=== PATIENT | female | born 1995 | race Caucasian/White ===

== ENCOUNTER 2022-01-26 23:52 | Inpatient (IN) ==
[2022-01-27] MEDS ORDERED: ONDANSETRON INJ 2 MG/ML 2 ML VIAL ONE (01:47)
[2022-01-27 02:07] LABS: Pregnancy Test, Urine Negative (Negative)
[2022-01-27 02:08] LABS: Appearance Urine Clear (Clear); Bacteria Urine Automated Negative (Negative); Bilirubin Urine Negative (Negative); Blood Urine Negative (Negative); Color Urine Yellow; Epithelial Cell Urine Auto >30 /lpf (0-5); Glucose Urine UA 3+ (Negative); Ketones Urine 1+ (Negative); Leukocyte Esterase Urine Trace (Negative); Nitrite Urine Negative (Negative); Protein Urine Negative (Negative); RBC Urine Automated 0-4 /hpf (0-4); Specific Gravity Urine 1.018 (1.000-1.030); Urobilinogen Urine Negative (Negative)
[2022-01-27 02:13] LABS: Acetaminophen < 3 ug/ml (10-30); Albumin Globulin Ratio 1.3 (0.9-2); Albumin Level 4.3 gm/dl (3.4-5.0); BUN Creatinine Ratio 12.4 (10-20); Bilirubin,Total 0.3 mg/dl (0.2-1.0); Calcium 9.4 mg/dl (8.5-10.1); Est GFR (African American) 104.4 ml/min; Est GFR (Non-African American) 90.1 ml/min; Globulin 3.2 gm/dl (2.5-4.0); Potassium 3.8 mmol/L (3.5-5.1); Salicylate < 3.0 mg/dl (3.0-30); Total Protein 7.5 gm/dl (6.0-8.3)
[2022-01-27 02:17] LABS: Hematocrit (blood only) 41.8 % (34.1-44.9); Hemoglobin 13.6 g/dl (12.0-16.0); Mean Corpuscular Hemoglobin 26.8 pg (25.0-34.0); Mean Corpuscular Hgb Conc 32.5 g/dL (32.0-36.0); Mean Corpuscular Volume 82.4 fL (80.0-100.0); Mean Platelet Volume 10.3 fL (9.4-12.3); Platelet Count 461 K/uL (130-400); RDW Coefficient of Variation 15.1 % (11.5-14.5); RDW Standard Deviation 44.3 fL (36.4-46.3); Red Blood Count 5.07 M/uL (3.93-5.22); White Blood Count 35.77 K/ul (4.8-10.8)
[2022-01-27 02:23] LABS: Basophils # (auto) 0.08 K/uL (0-0.2); Basophils % (auto) 0.2 %; Immature Granulocytes # (auto) 0.45 K/uL (0.00-0.02); Immature Granulocytes % (auto) 1.3 %; Lymphocytes # (auto) 1.19 K/uL (1.2-3.4); Lymphocytes % (auto) 3.3 %; Monocytes # (auto) 1.32 K/uL (0.24-0.82); Monocytes % (auto) 3.7 %; Neutrophils # (auto) 32.73 K/uL (1.4-6.5); Neutrophils % (auto) 91.5 %
[2022-01-27 02:27] LABS: Amphetamines+Metham, Urine Neg (Neg); Barbiturates, Urine Neg (Neg); Benzodiazepine, Urine Neg (Neg); Cocaine, Urine Neg (Neg); MDMA (Ecstacy), Urine Neg (Neg); Methadone, Urine Neg (Neg); Opiate, Urine Neg (Neg); Phencyclidine, Urine Neg (Neg)
--- NOTE | 2022-01-27 04:23 | Emergency Department Note ---
Impression & Plan Suicide attempt by fentanyl overdose, Leukocytosis Admit to the [facility] ED Provider Note NAME: BELLA LOVE AGE: 26 SEX: F ARRIVES VIA: Ambulance INFORMANT: Patient and EMS ED PROVIDER(S): Ashlie Puri DO CHIEF COMPLAINT: Fentanyl overdose PLAN: Disposition: Admit to the [facility] Condition: Guarded MEDICAL DECISION MAKING: This is a 26-year-old female patient who tried to commit suicide today by chewing up fentanyl patches. The patient describes feeling increasing depression. She states that she took 10 fentanyl patches and she had them up in an effort to kill her self. She was found by her aunt who called police and EMS who administered Narcan in an effort to save the patient's life. Upon my evaluation of the patient, I found her to have an extremely high white blood cell count greater than 35,000. She has no history of this. The only complaint the patient had was pain behind her right eye for the past couple of weeks. She went for CT scan of the brain which was unremarkable. Patient does have a history of depression with 4 previous admissions to the [facility] for psychiatric care. Patient's of a fentanyl overdose just 4 months ago. Because of the significant leukocytosis, the patient was treated for the possibility of sepsis as she laid unresponsive from this overdose for an unknown amount of time. There was a concern for possible aspiration. Chest x-ray was performed which was unremarkable. But we will treat for the possibility of sepsis with broad-spectrum antibiotics. I have discussed the case with the [facility] and they will evaluate for further inpatient care to work-up this leukocytosis before the patient can be admitted for inpatient psychiatric care. 302 paperwork was petitioned. Triage Nursing notes reviewed and agree with them. Differential diagnosis: Suicide attempt, mood disorder, thought disorder, myeloproliferative disease, sepsis, demargination ER treatment provided: IV vancomycin IV Zosyn IV normal saline bolus Diagnostics interpreted by me: Cardiac Monitoring: Normal sinus rhythm at a rate of 94 Laboratory studies: See below Imaging studies: As per stat rad CT head: No acute intracranial abnormality Portable chest x-ray: As per my interpretation no acute pulm infiltrates or consolidations. HPI: 26/F arrives for evaluation of suicide attempt. Patient describes increasing depression and she took 10 fentanyl patches into the mouth and effort to kill her self. Patient apparently was found unresponsive by her aunt. Adia holloway and EMS were called who also found her unresponsive and administered Narcan to reverse the effects of the opioid. ROS: See above HPI for pertinent positives & negatives. A total of 10 systems reviewed and were otherwise negative. PAST MEDICAL HISTORY: Depression PAST SURGICAL HISTORY:See Below FAMILY HISTORY:See Below SOCIAL HISTORY: Lives with her son and her aunt. She denies any drug or alcohol use. HOME MEDICATIONS:See list ALLERGIES: none VITALS:See Below PHYSICAL EXAMINATION: HEENT: Head - normocephalic and atraumatic. Pupils are equal, round, and reactive to light. Extraocular eye muscles are intact, and sclera are anicteric. Nose - moist nasal mucosa without discharge. Mouth - moist buccal mucosa. Oropharynx is nonerythematous and there is no tonsillar exudate or edema noted. Neck: Supple; no cervical lymphadenopathy appreciated Heart: Regular rate and rhythm. There is a normal S1 and S2 with no murmurs, clicks, or gallops appreciated. Lungs: Clear to auscultation bilaterally with no wheezes, rales, or rhonchi. Abdomen: Soft, completely nontender, nondistended, with good bowel sounds. There are no palpable pulsatile masses or hepatosplenomegaly. There is no guarding, rigidity, or rebound noted. Extremities: No evidence of cyanosis, clubbing, or edema. There are easily palpable peripheral pulses. Skin: Extremely pale, warm and dry with good turgor and no rashes. Psych: Patient has a flat affect. She avoids eye contact. She admits to suicidal ideation and an attempt to overdose by chewing on fentanyl patches. ED COURSE: Times/Reassessments: 130 the patient was evaluated in room B 12. A complete history and physical was performed. Laboratory studies were drawn as above. The patient was bolused with IV normal saline solution. Once her white blood cell count was noted to be 35,000, a septic protocol was performed. A urine specimen was obtained. Chest x-ray was performed. Blood cultures were obtained. Patient was treated with IV Zosyn and IV vancomycin. Ashlie Puri DO Past Med/Surg History Medical History ADHD Depression Surgical History No pertinent past surgical history Family History Mother Diabetes Hypertension Sister Depression Social History Smoking Status: Never smoker Hx Alcohol Use: No Hx Substance Use: No Communication Ability: Effective Quality Improvement Coordinator (Rn) Required: No Beliefs That Will Affect Care: None Current Living Situation: Alone Other Information That Helps Us Care for You: No Feels Safe at Home: Yes Safety Concerns: Feels Safe At This Time Assistive Devices: None Allergies Allergies Allergy/AdvReac Type Severity Reaction Status Date / Time No Known Allergies AdvReac Unknown Unverified 10/21/04 20:45 Home Meds Home Medications Medication Instructions Recorded Confirmed AMPHETAMINE-DEXTROAMPHETAMINE 15MG 15 mg PO DAILY #0 tabs 05/10/13 (ADDERALL 15MG) Fluoxetine (Prozac) 40 mg PO DAILY #0 caps 05/10/13 Lamotrigine (Lamictal) 50 mg PO BID #0 tabs 05/10/13 MELATONIN 6 mg PO HS ##0 05/10/13 Trazodone Hcl (Desyrel) 150 mg PO HS #0 tabs 05/10/13 Results & Data (ED) Vital Signs Vital Signs - 24 hr 01/26/22 23:48 01/27/22 00:27 01/27/22 00:27 Temperature 36.6 C Temperature Source Oral Pulse Rate 154 H Pulse Rate [Apical] Pulse Rate from SpO2 Sensor Respiratory Rate 15 20 Respiratory Effort / Characteristics Non-Labored Respiratory Depth Normal Normal Respiratory Pattern Regular Regular Blood Pressure 144/88 H Blood Pressure [Right Arm] 137/90 Blood Pressure Mean 106 Blood Pressure Mean [Right Arm] 105 Pulse Oximetry 100 100 Oxygen Delivery Method Room Air Room Air Room Air Sepsis Recent Fever Within 48 Hours No Sepsis New/Unexplained Change in Mental Status N/A Sepsis Action Taken by Nursing No Action Required 01/27/22 01:00 01/27/22 02:00 01/27/22 02:52 Temperature 37.1 C Temperature Source Oral Pulse Rate 126 H 108 H Pulse Rate [Apical] Pulse Rate from SpO2 Sensor Respiratory Rate 15 14 Respiratory Effort / Characteristics Respiratory Depth Respiratory Pattern Blood Pressure 146/98 H 132/92 Blood Pressure [Right Arm] Blood Pressure Mean 114 105 Blood Pressure Mean [Right Arm] Pulse Oximetry 94 98 Oxygen Delivery Method Room Air Room Air Sepsis Recent Fever Within 48 Hours Sepsis New/Unexplained Change in Mental Status Sepsis Action Taken by Nursing 01/27/22 02:52 01/27/22 02:00 01/27/22 02:30 Temperature Temperature Source Pulse Rate 111 H Pulse Rate [Apical] Pulse Rate from SpO2 Sensor Respiratory Rate 18 Respiratory Effort / Characteristics Respiratory Depth Respiratory Pattern Blood Pressure 129/82 120/86 Blood Pressure [Right Arm] Blood Pressure Mean 97 97 Blood Pressure Mean [Right Arm] Pulse Oximetry 99 Oxygen Delivery Method Room Air Room Air Sepsis Recent Fever Within 48 Hours Sepsis New/Unexplained Change in Mental Status Sepsis Action Taken by Nursing 01/27/22 03:00 01/27/22 03:30 01/27/22 04:00 Temperature Temperature Source Pulse Rate 98 H 94 H 108 H Pulse Rate [Apical] Pulse Rate from SpO2 Sensor Respiratory Rate 19 19 20 Respiratory Effort / Characteristics Respiratory Depth Respiratory Pattern Blood Pressure 122/87 126/93 121/80 Blood Pressure [Right Arm] Blood Pressure Mean 98 104 93 Blood Pressure Mean [Right Arm] Pulse Oximetry 92 95 99 Oxygen Delivery Method Room Air Room Air Room Air Sepsis Recent Fever Within 48 Hours Sepsis New/Unexplained Change in Mental Status Sepsis Action Taken by Nursing 01/27/22 04:30 01/27/22 05:00 01/27/22 05:30 Temperature Temperature Source Pulse Rate 106 H 91 H 90 Pulse Rate [Apical] Pulse Rate from SpO2 Sensor Respiratory Rate 17 16 18 Respiratory Effort / Characteristics Respiratory Depth Respiratory Pattern Blood Pressure 140/93 120/87 111/82 Blood Pressure [Right Arm] Blood Pressure Mean 108 98 91 Blood Pressure Mean [Right Arm] Pulse Oximetry 97 96 96 Oxygen Delivery Method Room Air Room Air Room Air Sepsis Recent Fever Within 48 Hours Sepsis New/Unexplained Change in Mental Status Sepsis Action Taken by Nursing 01/27/22 06:00 01/27/22 07:00 01/27/22 07:15 Temperature Temperature Source Pulse Rate 84 Pulse Rate [Apical] 93 H 75 Pulse Rate from SpO2 Sensor Respiratory Rate 16 16 16 Respiratory Effort / Characteristics Respiratory Depth Respiratory Pattern Blood Pressure 140/79 Blood Pressure [Right Arm] 121/71 120/75 Blood Pressure Mean 99 Blood Pressure Mean [Right Arm] 87 90 Pulse Oximetry 95 98 99 Oxygen Delivery Method Room Air Room Air Sepsis Recent Fever Within 48 Hours Sepsis New/Unexplained Change in Mental Status Sepsis Action Taken by Nursing 01/27/22 07:39 01/27/22 07:45 01/27/22 08:00 Temperature Temperature Source Pulse Rate Pulse Rate [Apical] 79 90 106 H Pulse Rate from SpO2 Sensor Respiratory Rate 16 16 18 Respiratory Effort / Characteristics Respiratory Depth Respiratory Pattern Blood Pressure Blood Pressure [Right Arm] 135/79 114/69 Blood Pressure Mean Blood Pressure Mean [Right Arm] 97 84 Pulse Oximetry 96 96 98 Oxygen Delivery Method Room Air Sepsis Recent Fever Within 48 Hours Sepsis New/Unexplained Change in Mental Status Sepsis Action Taken by Nursing 01/27/22 08:15 01/27/22 08:30 01/27/22 08:45 Temperature Temperature Source Pulse Rate Pulse Rate [Apical] 92 H 90 78 Pulse Rate from SpO2 Sensor Respiratory Rate 18 16 16 Respiratory Effort / Characteristics Respiratory Depth Respiratory Pattern Blood Pressure Blood Pressure [Right Arm] 127/95 120/77 Blood Pressure Mean Blood Pressure Mean [Right Arm] 105 91 Pulse Oximetry 99 100 97 Oxygen Delivery Method Sepsis Recent Fever Within 48 Hours Sepsis New/Unexplained Change in Mental Status Sepsis Action Taken by Nursing 01/27/22 09:00 01/27/22 09:15 01/27/22 09:30 Temperature Temperature Source Pulse Rate Pulse Rate [Apical] 82 87 80 Pulse Rate from SpO2 Sensor Respiratory Rate 18 16 16 Respiratory Effort / Characteristics Respiratory Depth Respiratory Pattern Blood Pressure Blood Pressure [Right Arm] 114/70 110/73 117/68 Blood Pressure Mean Blood Pressure Mean [Right Arm] 84 85 84 Pulse Oximetry 97 97 98 Oxygen Delivery Method Sepsis Recent Fever Within 48 Hours Sepsis New/Unexplained Change in Mental Status Sepsis Action Taken by Nursing 01/27/22 09:45 01/27/22 10:00 01/27/22 06:33 Temperature Temperature Source Pulse Rate Pulse Rate [Apical] 80 79 Pulse Rate from SpO2 Sensor 93 H Respiratory Rate 18 16 Respiratory Effort / Characteristics Respiratory Depth Respiratory Pattern Blood Pressure Blood Pressure [Right Arm] 114/71 106/70 Blood Pressure Mean Blood Pressure Mean [Right Arm] 85 82 Pulse Oximetry 98 97 96 Oxygen Delivery Method Sepsis Recent Fever Within 48 Hours Sepsis New/Unexplained Change in Mental Status Sepsis Action Taken by Nursing 01/27/22 06:35 01/27/22 06:35 01/27/22 07:00 Temperature Temperature Source Pulse Rate 78 83 Pulse Rate [Apical] Pulse Rate from SpO2 Sensor 78 81 Respiratory Rate 12 16 Respiratory Effort / Characteristics Respiratory Depth Respiratory Pattern Blood Pressure 121/71 Blood Pressure [Right Arm] Blood Pressure Mean 87 Blood Pressure Mean [Right Arm] Pulse Oximetry 99 96 Oxygen Delivery Method Sepsis Recent Fever Within 48 Hours Sepsis New/Unexplained Change in Mental Status Sepsis Action Taken by Nursing 01/27/22 07:30 01/27/22 07:37 01/27/22 07:37 Temperature Temperature Source Pulse Rate 80 80 Pulse Rate [Apical] Pulse Rate from SpO2 Sensor 81 80 Respiratory Rate 18 17 Respiratory Effort / Characteristics Respiratory Depth Respiratory Pattern Blood Pressure 135/79 Blood Pressure [Right Arm] Blood Pressure Mean 97 Blood Pressure Mean [Right Arm] Pulse Oximetry 96 95 Oxygen Delivery Method Sepsis Recent Fever Within 48 Hours Sepsis New/Unexplained Change in Mental Status Sepsis Action Taken by Nursing 01/27/22 07:45 01/27/22 07:45 01/27/22 08:00 Temperature Temperature Source Pulse Rate 83 Pulse Rate [Apical] Pulse Rate from SpO2 Sensor 82 Respiratory Rate 16 Respiratory Effort / Characteristics Respiratory Depth Respiratory Pattern Blood Pressure 111/75 119/57 L Blood Pressure [Right Arm] Blood Pressure Mean 87 77 Blood Pressure Mean [Right Arm] Pulse Oximetry 96 Oxygen Delivery Method Sepsis Recent Fever Within 48 Hours Sepsis New/Unexplained Change in Mental Status Sepsis Action Taken by Nursing 01/27/22 08:00 01/27/22 08:15 01/27/22 08:15 Temperature Temperature Source Pulse Rate 103 H 85 Pulse Rate [Apical] Pulse Rate from SpO2 Sensor 95 H 84 Respiratory Rate 16 15 Respiratory Effort / Characteristics Respiratory Depth Respiratory Pattern Blood Pressure 114/69 Blood Pressure [Right Arm] Blood Pressure Mean 84 Blood Pressure Mean [Right Arm] Pulse Oximetry 96 97 Oxygen Delivery Method Sepsis Recent Fever Within 48 Hours Sepsis New/Unexplained Change in Mental Status Sepsis Action Taken by Nursing 01/27/22 08:29 01/27/22 08:29 01/27/22 08:30 Temperature Temperature Source Pulse Rate 111 H 83 Pulse Rate [Apical] Pulse Rate from SpO2 Sensor 108 H 85 Respiratory Rate 10 L 20 Respiratory Effort / Characteristics Respiratory Depth Respiratory Pattern Blood Pressure 127/95 Blood Pressure [Right Arm] Blood Pressure Mean 105 Blood Pressure Mean [Right Arm] Pulse Oximetry 100 99 Oxygen Delivery Method Sepsis Recent Fever Within 48 Hours Sepsis New/Unexplained Change in Mental Status Sepsis Action Taken by Nursing 01/27/22 08:45 01/27/22 08:45 01/27/22 09:00 Temperature Temperature Source Pulse Rate 77 Pulse Rate [Apical] Pulse Rate from SpO2 Sensor 78 Respiratory Rate 16 Respiratory Effort / Characteristics Respiratory Depth Respiratory Pattern Blood Pressure 120/77 114/70 Blood Pressure [Right Arm] Blood Pressure Mean 91 84 Blood Pressure Mean [Right Arm] Pulse Oximetry 98 Oxygen Delivery Method Sepsis Recent Fever Within 48 Hours Sepsis New/Unexplained Change in Mental Status Sepsis Action Taken by Nursing 01/27/22 09:00 01/27/22 09:15 01/27/22 09:15 Temperature Temperature Source Pulse Rate 75 77 Pulse Rate [Apical] Pulse Rate from SpO2 Sensor 76 78 Respiratory Rate 18 16 Respiratory Effort / Characteristics Respiratory Depth Respiratory Pattern Blood Pressure 116/66 Blood Pressure [Right Arm] Blood Pressure Mean 82 Blood Pressure Mean [Right Arm] Pulse Oximetry 98 97 Oxygen Delivery Method Sepsis Recent Fever Within 48 Hours Sepsis New/Unexplained Change in Mental Status Sepsis Action Taken by Nursing 01/27/22 09:30 01/27/22 09:30 01/27/22 09:45 Temperature Temperature Source Pulse Rate 81 Pulse Rate [Apical] Pulse Rate from SpO2 Sensor 80 Respiratory Rate 16 Respiratory Effort / Characteristics Respiratory Depth Respiratory Pattern Blood Pressure 117/68 114/71 Blood Pressure [Right Arm] Blood Pressure Mean 84 85 Blood Pressure Mean [Right Arm] Pulse Oximetry 98 Oxygen Delivery Method Sepsis Recent Fever Within 48 Hours Sepsis New/Unexplained Change in Mental Status Sepsis Action Taken by Nursing 01/27/22 09:45 01/27/22 10:00 01/27/22 10:00 Temperature Temperature Source Pulse Rate 78 79 Pulse Rate [Apical] Pulse Rate from SpO2 Sensor 81 80 Respiratory Rate 15 12 Respiratory Effort / Characteristics Respiratory Depth Respiratory Pattern Blood Pressure 106/70 Blood Pressure [Right Arm] Blood Pressure Mean 82 Blood Pressure Mean [Right Arm] Pulse Oximetry 98 97 Oxygen Delivery Method Sepsis Recent Fever Within 48 Hours Sepsis New/Unexplained Change in Mental Status Sepsis Action Taken by Nursing Laboratory Data Result diagrams: 01/27/22 00:10 01/27/22 00:10 Lab Results 01/27/22 01/27/22 01/27/22 Range/Units 00:10 00:10 00:10 WBC 35.77 H* (4.8-10.8) K/ul RBC 5.07 (3.93-5.22) M/uL Hgb 13.6 (12.0-16.0) g/dl Hct 41.8 (34.1-44.9) % MCV 82.4 (80.0-100.0) fL MCH 26.8 (25.0-34.0) pg MCHC 32.5 (32.0-36.0) g/dL RDW Std Deviation 44.3 (36.4-46.3) fL RDW Coeff of Harvey 15.1 H (11.5-14.5) % Plt Count 461 H (130-400) K/uL MPV 10.3 (9.4-12.3) fL Immature Gran % (Auto) 1.3 % Neut % (Auto) 91.5 % Lymph % (Auto) 3.3 % Whitley % (Auto) 3.7 % Eos % (Auto) 0.0 % Baso % (Auto) 0.2 % Neut # (Auto) 32.73 H (1.4-6.5) K/uL Lymph # (Auto) 1.19 L (1.2-3.4) K/uL Whitley # (Auto) 1.32 H (0.24-0.82) K/uL Eos # (Auto) 0.00 (0-0.50) K/uL Baso # (Auto) 0.08 (0-0.2) K/uL Immature Gran # (Auto) 0.45 H (0.00-0.02) K/uL Sodium 142 (136-145) mmol/L Potassium 3.8 (3.5-5.1) mmol/L Chloride 106 (98-107) mmol/L Carbon Dioxide 21 (21-32) mmol/L Anion Gap 15 H (3-11) BUN 11 (6-23) mg/dl Creatinine 0.89 (0.6-1.2) mg/dl Est Cr Clr Drug Dosing 108.0 ml/min Est GFR ( Amer) 104.4 ml/min Est GFR (Non-Af Amer) 90.1 ml/min BUN/Creatinine Ratio 12.4 (10-20) Glucose 166 H (70-99(Fasting)) mg/dl Lactate (0.4-2.0) mmol/L Calcium 9.4 (8.5-10.1) mg/dl Magnesium (1.7-2.4) mg/dl Total Bilirubin 0.3 (0.2-1.0) mg/dl Direct Bilirubin (0-0.2) mg/dl AST 25 (13-39) U/L ALT 34 (7-52) U/L Alkaline Phosphatase 72 (34-104) U/L Total Protein 7.5 (6.0-8.3) gm/dl Albumin 4.3 (3.4-5.0) gm/dl Globulin 3.2 (2.5-4.0) gm/dl Albumin/Globulin Ratio 1.3 (0.9-2) Procalcitonin (0-0.5) ng/ml TSH 0.982 (0.300-4.500) uIu/ml Urine Color Urine Appearance (Clear) Urine pH (4.5-7.5) Ur Specific [place] (1.000-1.030) Urine Protein (Negative) Urine Glucose (UA) (Negative) Urine Ketones (Negative) Urine Blood (Negative) Urine Nitrite (Negative) Urine Bilirubin (Negative) Urine Urobilinogen (Negative) Ur Leukocyte Esterase (Negative) Urine WBC (Auto) (0-5) /hpf Urine RBC (Auto) (0-4) /hpf U Hyaline Cast (Auto) (0-5) /lpf U Epithel Cells (Auto) (0-5) /lpf Urine Bacteria (Auto) (Negative) Urine Test (Negative) Salicylates (3.0-30) mg/dl Urine Opiates Screen (Neg) Ur Methadone, Qual (Neg) Acetaminophen (10-30) ug/ml Urine Barbiturates (Neg) Ur Phencyclidine (PCP) (Neg) U Amphetamin/Meth Scrn (Neg) MDMA (Ecstasy) Screen (Neg) U Benzodiazepines Scrn (Neg) Ur Cocaine Metabolite (Neg) U Marijuana (THC) Screen (Neg) Ethyl Alcohol mg/dL (<10.0) mg/dl 01/27/22 01/27/22 01/27/22 Range/Units 00:10 00:10 01:05 WBC (4.8-10.8) K/ul RBC (3.93-5.22) M/uL Hgb (12.0-16.0) g/dl Hct (34.1-44.9) % MCV (80.0-100.0) fL MCH (25.0-34.0) pg MCHC (32.0-36.0) g/dL RDW Std Deviation (36.4-46.3) fL RDW Coeff of Harvey (11.5-14.5) % Plt Count (130-400) K/uL MPV (9.4-12.3) fL Immature Gran % (Auto) % Neut % (Auto) % Lymph % (Auto) % Whitley % (Auto) % Eos % (Auto) % Baso % (Auto) % Neut # (Auto) (1.4-6.5) K/uL Lymph # (Auto) (1.2-3.4) K/uL [place] # (Auto) (0.24-0.82) K/uL Eos # (Auto) (0-0.50) K/uL Baso # (Auto) (0-0.2) K/uL Immature Gran # (Auto) (0.00-0.02) K/uL Sodium (136-145) mmol/L Potassium (3.5-5.1) mmol/L Chloride (98-107) mmol/L Carbon Dioxide (21-32) mmol/L Anion Gap (3-11) BUN (6-23) mg/dl Creatinine (0.6-1.2) mg/dl Est Cr Clr Drug Dosing ml/min Est GFR ( Amer) ml/min Est GFR (Non-Af Amer) ml/min BUN/Creatinine Ratio (10-20) Glucose (70-99(Fasting)) mg/dl Lactate (0.4-2.0) mmol/L Calcium (8.5-10.1) mg/dl Magnesium (1.7-2.4) mg/dl Total Bilirubin (0.2-1.0) mg/dl Direct Bilirubin (0-0.2) mg/dl AST (13-39) U/L ALT (7-52) U/L Alkaline Phosphatase (34-104) U/L Total Protein (6.0-8.3) gm/dl Albumin (3.4-5.0) gm/dl Globulin (2.5-4.0) gm/dl Albumin/Globulin Ratio (0.9-2) Procalcitonin (0-0.5) ng/ml TSH (0.300-4.500) uIu/ml Urine Color Yellow Urine Appearance Clear (Clear) Urine pH 5.0 (4.5-7.5) Ur Specific [place] 1.018 (1.000-1.030) Urine Protein Negative (Negative) Urine Glucose (UA) 3+ H (Negative) Urine Ketones 1+ H (Negative) Urine Blood Negative (Negative) Urine Nitrite Negative (Negative) Urine Bilirubin Negative (Negative) Urine Urobilinogen Negative (Negative) Ur Leukocyte Esterase Trace H (Negative) Urine WBC (Auto) 5-10 H (0-5) /hpf Urine RBC (Auto) 0-4 (0-4) /hpf U Hyaline Cast (Auto) 1-5 (0-5) /lpf U Epithel Cells (Auto) >30 H (0-5) /lpf Urine Bacteria (Auto) Negative (Negative) Urine Test (Negative) Salicylates < 3.0 L (3.0-30) mg/dl Urine Opiates Screen (Neg) Ur Methadone, Qual (Neg) Acetaminophen < 3 L (10-30) ug/ml Urine Barbiturates (Neg) Ur Phencyclidine (PCP) (Neg) U Amphetamin/Meth Scrn (Neg) MDMA (Ecstasy) Screen (Neg) U Benzodiazepines Scrn (Neg) Ur Cocaine Metabolite (Neg) U Marijuana (THC) Screen (Neg) Ethyl Alcohol mg/dL < 10.0 (<10.0) mg/dl 01/27/22 01/27/22 01/27/22 Range/Units 01:05 01:05 03:46 WBC (4.8-10.8) K/ul RBC (3.93-5.22) M/uL Hgb (12.0-16.0) g/dl Hct (34.1-44.9) % MCV (80.0-100.0) fL MCH (25.0-34.0) pg MCHC (32.0-36.0) g/dL RDW Std Deviation (36.4-46.3) fL RDW Coeff of Harvey (11.5-14.5) % Plt Count (130-400) K/uL MPV (9.4-12.3) fL Immature Gran % (Auto) % Neut % (Auto) % Lymph % (Auto) % [place] % (Auto) % Eos % (Auto) % Baso % (Auto) % Neut # (Auto) (1.4-6.5) K/uL Lymph # (Auto) (1.2-3.4) K/uL [place] # (Auto) (0.24-0.82) K/uL Eos # (Auto) (0-0.50) K/uL Baso # (Auto) (0-0.2) K/uL Immature Gran # (Auto) (0.00-0.02) K/uL Sodium (136-145) mmol/L Potassium (3.5-5.1) mmol/L Chloride (98-107) mmol/L Carbon Dioxide (21-32) mmol/L Anion Gap (3-11) BUN (6-23) mg/dl Creatinine (0.6-1.2) mg/dl Est Cr Clr Drug Dosing ml/min Est GFR ( Amer) ml/min Est GFR (Non-Af Amer) ml/min BUN/Creatinine Ratio (10-20) Glucose (70-99(Fasting)) mg/dl Lactate (0.4-2.0) mmol/L Calcium (8.5-10.1) mg/dl Magnesium 1.8 (1.7-2.4) mg/dl Total Bilirubin 0.4 (0.2-1.0) mg/dl Direct Bilirubin 0.1 (0-0.2) mg/dl AST 21 (13-39) U/L ALT 30 (7-52) U/L Alkaline Phosphatase 57 (34-104) U/L Total Protein 6.9 (6.0-8.3) gm/dl Albumin 4.0 (3.4-5.0) gm/dl Globulin (2.5-4.0) gm/dl Albumin/Globulin Ratio (0.9-2) Procalcitonin (0-0.5) ng/ml TSH (0.300-4.500) uIu/ml Urine Color Urine Appearance (Clear) Urine pH (4.5-7.5) Ur Specific [place] (1.000-1.030) Urine Protein (Negative) Urine Glucose (UA) (Negative) Urine Ketones (Negative) Urine Blood (Negative) Urine Nitrite (Negative) Urine Bilirubin (Negative) Urine Urobilinogen (Negative) Ur Leukocyte Esterase (Negative) Urine WBC (Auto) (0-5) /hpf Urine RBC (Auto) (0-4) /hpf U Hyaline Cast (Auto) (0-5) /lpf U Epithel Cells (Auto) (0-5) /lpf Urine Bacteria (Auto) (Negative) Urine Test Negative (Negative) Salicylates (3.0-30) mg/dl Urine Opiates Screen Neg (Neg) Ur Methadone, Qual Neg (Neg) Acetaminophen (10-30) ug/ml Urine Barbiturates Neg (Neg) Ur Phencyclidine (PCP) Neg (Neg) U Amphetamin/Meth Scrn Neg (Neg) MDMA (Ecstasy) Screen Neg (Neg) U Benzodiazepines Scrn Neg (Neg) Ur Cocaine Metabolite Neg (Neg) U Marijuana (THC) Screen Neg (Neg) Ethyl Alcohol mg/dL (<10.0) mg/dl 01/27/22 01/27/22 01/27/22 Range/Units 03:46 03:46 08:30 WBC (4.8-10.8) K/ul RBC (3.93-5.22) M/uL Hgb (12.0-16.0) g/dl Hct (34.1-44.9) % MCV (80.0-100.0) fL MCH (25.0-34.0) pg MCHC (32.0-36.0) g/dL RDW Std Deviation (36.4-46.3) fL RDW Coeff of Harvey (11.5-14.5) % Plt Count (130-400) K/uL MPV (9.4-12.3) fL Immature Gran % (Auto) % Neut % (Auto) % Lymph % (Auto) % [place] % (Auto) % Eos % (Auto) % Baso % (Auto) % Neut # (Auto) (1.4-6.5) K/uL Lymph # (Auto) (1.2-3.4) K/uL [place] # (Auto) (0.24-0.82) K/uL Eos # (Auto) (0-0.50) K/uL Baso # (Auto) (0-0.2) K/uL Immature Gran # (Auto) (0.00-0.02) K/uL Sodium (136-145) mmol/L Potassium (3.5-5.1) mmol/L Chloride (98-107) mmol/L Carbon Dioxide (21-32) mmol/L Anion Gap (3-11) BUN (6-23) mg/dl Creatinine (0.6-1.2) mg/dl Est Cr Clr Drug Dosing ml/min Est GFR ( Amer) ml/min Est GFR (Non-Af Amer) ml/min BUN/Creatinine Ratio (10-20) Glucose (70-99(Fasting)) mg/dl Lactate 1.9 (0.4-2.0) mmol/L Calcium (8.5-10.1) mg/dl Magnesium (1.7-2.4) mg/dl Total Bilirubin (0.2-1.0) mg/dl Direct Bilirubin (0-0.2) mg/dl AST (13-39) U/L ALT (7-52) U/L Alkaline Phosphatase (34-104) U/L Total Protein (6.0-8.3) gm/dl Albumin (3.4-5.0) gm/dl Globulin (2.5-4.0) gm/dl Albumin/Globulin Ratio (0.9-2) Procalcitonin 6.07 H (0-0.5) ng/ml TSH (0.300-4.500) uIu/ml Urine Color Yellow Urine Appearance Clear (Clear) Urine pH 6.0 (4.5-7.5) Ur Specific [place] 1.022 (1.000-1.030) Urine Protein Trace H (Negative) Urine Glucose (UA) Negative (Negative) Urine Ketones 1+ H (Negative) Urine Blood Negative (Negative) Urine Nitrite Negative (Negative) Urine Bilirubin Negative (Negative) Urine Urobilinogen Negative (Negative) Ur Leukocyte Esterase 1+ H (Negative) Urine WBC (Auto) 10-30 H (0-5) /hpf Urine RBC (Auto) 0-4 (0-4) /hpf U Hyaline Cast (Auto) 1-5 (0-5) /lpf U Epithel Cells (Auto) >30 H (0-5) /lpf Urine Bacteria (Auto) Negative (Negative) Urine Test (Negative) Salicylates (3.0-30) mg/dl Urine Opiates Screen (Neg) Ur Methadone, Qual (Neg) Acetaminophen (10-30) ug/ml Urine Barbiturates (Neg) Ur Phencyclidine (PCP) (Neg) U Amphetamin/Meth Scrn (Neg) MDMA (Ecstasy) Screen (Neg) U Benzodiazepines Scrn (Neg) Ur Cocaine Metabolite (Neg) U Marijuana (THC) Screen (Neg) Ethyl Alcohol mg/dL (<10.0) mg/dl Administered Medications Discontinued Medications Piperacillin Sod/Tazobactam Sod (Zosyn) 4.5 gm in 120 mls @ 240 mls/hr IV NOW ONE Stop: 01/27/22 05:59 Last Infusion: 01/27/22 08:31 Dose: 0 mls/hr Documented By: Admin: 01/27/22 06:02 Dose: 240 mls/hr Documented By: FAY Vancomycin HCl 2,000 mg/ (Sodium Chloride) 540 mls @ 200 mls/hr IV NOW ONE Stop: 01/27/22 08:12 Last Infusion: 01/27/22 09:50 Dose: 0 mls/hr Documented By: Admin: 01/27/22 06:54 Dose: 200 mls/hr Documented By: FRANCIA Sodium Chloride (Nss 1000ml) 2,000 mls @ 999 mls/hr IV .Q2H1M ONE Stop: 01/27/22 07:33 Last Infusion: 01/27/22 08:31 Dose: 0 mls/hr Documented By: Admin: 01/27/22 06:01 Dose: 999 mls/hr Documented By: FAY Ondansetron HCl (Ondansetron Inj 2 Mg/Ml 2 Ml Vial) Confirm Administered Dose 4 mg .ROUTE .STK-MED ONE Stop: 01/27/22 01:48 Last Admin: 01/27/22 01:53 Dose: 4 mg Documented By: FAY Discharge Plan Visit Data Chief Complaint: Overdose (Intentional) Stated Complaint: OVERDOSE ED Provider: Ashlie Puri Discharge Problem: Suicide attempt by fentanyl overdose, Leukocytosis Patient Disposition: Admitted As Inpatient Discharge Instructions Interventions: ED Discharge Assessment Last Done: 01/27/22 12:36 : Leukocytosis Qualifiers: Leukocytosis type: unspecified Qualified Code(s): D72.829 - Elevated white blood cell count, unspecified
[2022-01-27 04:31] LABS: Bilirubin Direct 0.1 mg/dl (0-0.2); Bilirubin,Total 0.4 mg/dl (0.2-1.0); Magnesium 1.8 mg/dl (1.7-2.4); Total Protein 6.9 gm/dl (6.0-8.3)
[2022-01-27] MEDS ORDERED: PIPERACILLIN/TAZOBACTAM 4.5 GM/120 ML BAG IV ONE (05:30)
[2022-01-27] MEDS ORDERED: VANCOMYCIN HCL 2,000 MG in SODIUM CHLORIDE 0.9% 500 ML IV ONE (05:31)
[2022-01-27] MEDS ORDERED: VANCOMYCIN CONSULT ACTIVE PRN (05:31)
[2022-01-27] MEDS ORDERED: SODIUM CHLORIDE 0.9% 1000ML 2,000 ML IV ONE (05:33)
--- NOTE | 2022-01-27 07:42 | XRay Report ---
SINGLE VIEW CHEST CLINICAL HISTORY: Sepsis. Overdose. FINDINGS: An AP, portable, upright chest radiograph is compared to study dated 05/10/2013. The cardiom ediastinal silhouette is unremarkable. The lungs and pleural spaces are clear. No pneumothorax is see n. The bony thorax is grossly intact. IMPRESSION: No active disease in the chest. ACT 112: Negative or not required by law. Electronically signed by: Donny Jones M.D. 01/27/2022 7:41 AM
--- NOTE | 2022-01-27 07:48 | CT Scan Report ---
CT SCAN OF THE BRAIN WITHOUT IV CONTRAST CLINICAL HISTORY: Headache. COMPARISON STUDY: No priors. TECHNIQUE: Unenhanced axial CT scan of the brain is performed from the vertex to the skull base. A d ose lowering technique was utilized adhering to the principles of ALARA. CT DOSE: 614.27 mGy.cm FINDINGS: Brain parenchyma: The brain parenchyma is normal in appearance. There is no hemorrhage, mass effect, or evidence of acute territorial ischemia by CT criteria. Singer-white matter differentiation is preser vinicius. No extra-axial fluid collection is seen. Ventricles, sulci, cisterns: Normal in configuration. Intracranial vasculature: The visualized intracranial vasculature at the skull base is normal in appe arance. Calvarium: Unremarkable. Sinuses and mastoids: The visualized paranasal sinuses are clear. The mastoid air cells are well pneu matized. Orbits: The bony orbits are grossly intact. IMPRESSION: No acute intracranial abnormality. ACT 112: Negative or not required by law. Electronically signed by: Donny Jones M.D. 01/27/2022 7:46 AM
--- NOTE | 2022-01-27 08:10 | History & Physical Report ---
Date of Service January 27, 2022 Assessment & Plan (1) Suicide attempt by fentanyl overdose: Plan: 26-year-old female past medical history significant for depression and ADHD admitted for suicide attempt by fentanyl overdose, with incidentally noted leukocytosis on admission lab testing. Suicide attempt: Patient reports having chewed 10-12 fentanyl patches with the intent to end her life. Found unresponsive with agonal breathing by family members. Received several doses of Narcan by EMS. She reports that her overdosed on fentanyl in September and has she has been struggling emotionally since that time. Behavioral health consult placed. Suicide precautions. (2) Leukocytosis: Plan: Incidentally noted leukocytosis on admission lab work of 35.77, and procalcitonin of 6.07. No localizable signs or sources of infection. Patient herself does not have any localizable complaints since arousal with Narcan Chest x-ray without evidence of pneumonia. COVID-[address] head without any acute findings. Patient does not have any findings suggestive of meningitis. Urinalysis does not show evidence of infection. No skin or soft tissue injuries, puncture wounds. Blood cultures were collected, and patient received Vanc/Zosyn x1 in ER. Repeat CBC in a.m. Evaluate for myeloproliferative disorders with peripheral smear if patient still with significant leukocytosis. (3) Hypertension: Plan: Patient reports that she has had "some elevated blood pressures before". She has not seen a healthcare provider for this. BP mildly elevated for age with systolic 144 this morning. Continue to monitor and if continues to be elevated would recommend PCP follow- up. Plan CODE STATUS: Full code FEN: Regular safe tray DVT prophylaxis: SCDs Dispo: Telemetry for cardiac monitoring following opiate overdose History of Present Illness Chief Complaint: Overdose Leukocytosis Primary Care Provider: Marilin Basilio DO 26-year-old female past medical history significant for depression, ADHD presented to the ER via EMS after being found unresponsive by her family members. She reports that she chewed up 10 of a family member's fentanyl patches in an effort to attempt suicide. She was given several doses of Narcan by EMS and by time of ER evaluation patient was alert and oriented. Admission lab work was performed for psychiatric admission and patient was noted to have a leukocytosis to 35,000 with a left shift. Head CT did not show any acute intracranial pathology. Chest x-ray without evidence of pneumonia. Urinalysis did not appear infected. Hospitalist service was consulted for admission for evaluation of leukocytosis. Allergies Allergy/AdvReac Type Severity Reaction Status Date / Time No Known Allergies AdvReac Unknown Unverified 10/21/04 20:45 Home Medications Medication Instructions Recorded Confirmed Type AMPHETAMINE-DEXTROAMPHETAMINE 15MG 15 mg PO DAILY #0 tabs 05/10/13 History (ADDERALL 15MG) Fluoxetine (Prozac) 40 mg PO DAILY #0 caps 05/10/13 History Lamotrigine (Lamictal) 50 mg PO BID #0 tabs 05/10/13 History MELATONIN 6 mg PO HS ##0 05/10/13 History Trazodone Hcl (Desyrel) 150 mg PO HS #0 tabs 05/10/13 History Past Med/Surg History Medical History ADHD Depression Surgical History No pertinent past surgical history Family History Mother Diabetes Hypertension Sister Depression Social History Smoking Status: Never smoker Hx Alcohol Use: No Hx Substance Use: No Communication Ability: Effective Loom Changer Required: No Beliefs That Will Affect Care: None Current Living Situation: Alone Other Information That Helps Us Care for You: No Feels Safe at Home: Yes Safety Concerns: Feels Safe At This Time Assistive Devices: None Review of Systems Constitutional: no fever and no chills Eyes: no blind spots and no diplopia Ear, Nose, Mouth, Throat: no nasal congestion and no epistaxis Respiratory: no cough and no dyspnea Cardiovascular: no chest pain and no palpitations Gastrointestinal: no abdominal pain, no nausea and no vomiting Genitourinary: no dysuria and no hematuria Musculoskeletal: no back pain and no neck pain Integumentary: no rash and no skin ulcer Neurologic: no localized weakness and no loss of sensation Psychiatric: + depression; no confusion Endocrine: no fatigue, no polydipsia and no polyuria Hematologic / Lymphatic: no easy bleeding and no easy bruising Physical Exam Constitutional: well developed and well nourished; no acute distress Eyes: PERRL, conjunctivae normal, anicteric sclerae ENMT: external ear and nose normal, oropharynx normal Neck: trachea midline, no thyromegaly Respiratory: normal respiratory effort, lungs clear to auscultation Cardiovascular: RRR, no murmur, no edema Gastrointestinal (Abdomen): normal bowel sounds, soft, nontender, no hepatosplenomegaly Musculoskeletal: no cyanosis or clubbing, extremities motor strength 5/5 Skin: no rashes, warm and dry Neurologic: AAOx3, normal speech. PERRLA, EOMI, no nystagmus. Bilateral UE, LE, and face without sensory or motor deficits. No tremor. Psychiatric: A+Ox3, euthymic affect Results & Data Results & Data ([facility]) Vital Signs (Past 12 Hours) Vital Signs Temp Pulse Pulse Resp BP BP Pulse Ox 01/27/22 07:39 79 16 135/79 96 01/27/22 07:15 75 16 120/75 99 01/27/22 07:00 93 H 16 121/71 98 01/27/22 06:00 84 16 140/79 95 01/27/22 05:30 90 18 111/82 96 01/27/22 05:00 91 H 16 120/87 96 01/27/22 04:30 106 H 17 140/93 97 01/27/22 04:00 108 H 20 121/80 99 01/27/22 03:30 94 H 19 126/93 95 01/27/22 03:00 98 H 19 122/87 92 01/27/22 02:30 120/86 01/27/22 02:00 111 H 18 129/82 99 01/27/22 02:52 01/27/22 02:52 37.1 C 01/27/22 02:00 108 H 14 132/92 98 01/27/22 01:00 126 H 15 146/98 H 94 01/27/22 00:27 20 137/90 100 01/27/22 00:27 01/26/22 23:48 36.6 C 154 H 15 144/88 H 100 O2 Del Method 01/27/22 07:39 Room Air 01/27/22 07:15 01/27/22 07:00 Room Air 01/27/22 06:00 Room Air 01/27/22 05:30 Room Air 01/27/22 05:00 Room Air 01/27/22 04:30 Room Air 01/27/22 04:00 Room Air 01/27/22 03:30 Room Air 01/27/22 03:00 Room Air 01/27/22 02:30 01/27/22 02:00 Room Air 01/27/22 02:52 Room Air 01/27/22 02:52 01/27/22 02:00 Room Air 01/27/22 01:00 Room Air 01/27/22 00:27 Room Air 01/27/22 00:27 Room Air 01/26/22 23:48 Room Air PG Care Time/CCT Total # of Minutes Spent Total Time Spent with Patient: Total time spent is greater than 50% in coordination of care (as documented) at patient's floor/unit and/or counseling patient: Coding Level of Care Code 71752 Initial Inpt Care Lvl 3 Diagnoses Suicide attempt by fentanyl overdose T40.412A Leukocytosis D72.829 Hypertension I10
[2022-01-27 08:44] LABS: Appearance Urine Clear (Clear); Bacteria Urine Automated Negative (Negative); Bilirubin Urine Negative (Negative); Blood Urine Negative (Negative); Color Urine Yellow; Epithelial Cell Urine Auto >30 /lpf (0-5); Glucose Urine UA Negative (Negative); Ketones Urine 1+ (Negative); Leukocyte Esterase Urine 1+ (Negative); Nitrite Urine Negative (Negative); Protein Urine Trace (Negative); RBC Urine Automated 0-4 /hpf (0-4); Specific Gravity Urine 1.022 (1.000-1.030); Urobilinogen Urine Negative (Negative)
[2022-01-27] MEDS ORDERED: POLYETHYLENE (MIRALAX) 17 GM PACK PO PRN (12:32)
[2022-01-27] MEDS ORDERED: ONDANSETRON INJ 2 MG/ML 2 ML VIAL IV PRN (12:32)
[2022-01-27] MEDS ORDERED: ACETAMINOPHEN 325 MG TAB PO PRN (12:32)
--- NOTE | 2022-01-27 13:45 | Electrocardiogram Report ---
Test Reason : Blood Pressure : / mmHG Vent. Rate : 137 BPM Atrial Rate : 137 BPM P-R Int : 112 ms QRS Dur : 078 ms QT Int : 382 ms P-R-T Axes : 000 092 044 degrees QTc Int : 576 ms Sinus tachycardia Rightward axis Borderline ECG When compared with ECG of 10-MAY-2013 14:58, No significant change was found Confirmed by González Marsh ([id number]) on 01/27/2022 1:44:48 PM Referred By: REFERRED SELF Confirmed By:Shahzad Marsh
--- NOTE | 2022-01-27 13:52 | Electrocardiogram Report ---
Test Reason : Blood Pressure : / mmHG Vent. Rate : 106 BPM Atrial Rate : 106 BPM P-R Int : 154 ms QRS Dur : 074 ms QT Int : 346 ms P-R-T Axes : 052 041 019 degrees QTc Int : 459 ms Poor data quality, interpretation may be adversely affected Sinus tachycardia Possible Left atrial enlargement Borderline ECG When compared with ECG of 27-JAN-2022 00:13, (unconfirmed) No significant change was found Confirmed by González Marsh ([id number]) on 01/27/2022 1:52:34 PM Referred By: REFERRED SELF Confirmed By:Shahzad Marsh
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
[2022-01-28 06:09] LABS: Basophils # (auto) 0.03 K/uL (0-0.2); Basophils % (auto) 0.2 %; Eosinophils # (auto) 0.03 K/uL (0-0.50); Eosinophils % (auto) 0.2 %; Hematocrit (blood only) 34.9 % (34.1-44.9); Hemoglobin 11.6 g/dl (12.0-16.0); Immature Granulocytes # (auto) 0.05 K/uL (0.00-0.02); Immature Granulocytes % (auto) 0.4 %; Lymphocytes # (auto) 2.09 K/uL (1.2-3.4); Lymphocytes % (auto) 15.8 %; Mean Corpuscular Hemoglobin 26.7 pg (25.0-34.0); Mean Corpuscular Hgb Conc 33.2 g/dL (32.0-36.0); Mean Corpuscular Volume 80.2 fL (80.0-100.0); Mean Platelet Volume 10.3 fL (9.4-12.3); Monocytes # (auto) 1.21 K/uL (0.24-0.82); Monocytes % (auto) 9.2 %; Neutrophils # (auto) 9.78 K/uL (1.4-6.5); Neutrophils % (auto) 74.2 %; Platelet Count 366 K/uL (130-400); RDW Coefficient of Variation 15.5 % (11.5-14.5); RDW Standard Deviation 44.6 fL (36.4-46.3); Red Blood Count 4.35 M/uL (3.93-5.22); White Blood Count 13.19 K/ul (4.8-10.8)
[2022-01-28 06:30] LABS: BUN Creatinine Ratio 8.8 (10-20); Calcium 8.6 mg/dl (8.5-10.1); Est GFR (African American) 88.5 ml/min; Est GFR (Non-African American) 76.4 ml/min; Potassium 3.5 mmol/L (3.5-5.1)
--- NOTE | 2022-01-28 07:10 | Hospitalist Progress Note ---
Date of Service January 28, 2022 Assessment & Plan (1) Suicide attempt by fentanyl overdose: Plan: 26-year-old female past medical history significant for depression and ADHD admitted for suicide attempt by fentanyl overdose, with incidentally noted leukocytosis on admission lab testing. Suicide attempt: Patient reports having chewed 10-12 fentanyl patches with the intent to end her life. Found unresponsive with agonal breathing by family members. Received several doses of Narcan by EMS. She reports that her overdosed on fentanyl in September and has she has been struggling emotionally since that time. Behavioral health consult placed. Suicide precautions. (2) Leukocytosis: Plan: Incidentally noted leukocytosis on admission lab work of 35.77, and procalcitonin of 6.07. No localizable signs or sources of infection. Patient herself does not have any localizable complaints since arousal with Narcan Chest x-ray without evidence of pneumonia. COVID-[address] head without any acute findings. Patient does not have any findings suggestive of meningitis. Urinalysis does not show evidence of infection. No skin or soft tissue injuries, puncture wounds. Blood cultures were collected, and patient received Vanc/Zosyn x1 in ER. Repeat CBC in a.m. Evaluate for myeloproliferative disorders with peripheral smear if patient still with significant leukocytosis. (3) Hypertension: Plan: Patient reports that she has had "some elevated blood pressures before". She has not seen a healthcare provider for this. BP mildly elevated for age with systolic 144 this morning. Continue to monitor and if continues to be elevated would recommend PCP follow- up. Plan CODE STATUS: Full code FEN: Regular safe tray DVT prophylaxis: SCDs Dispo: Telemetry for cardiac monitoring following opiate overdose Admission and Anticipated Discharge Date Admission Date: January 27, 2022 Results & Data Results & Data ([facility]) Vital Signs (Past 12 Hours) Vital Signs Pulse Resp BP Pulse Ox Pulse Ox O2 Del Method O2 Del Method 01/28/22 05:30 101 H 26 H 94 01/28/22 05:00 101 H 21 95 01/28/22 04:54 105 H 17 95 01/28/22 04:54 159/99 H 01/28/22 04:30 95 H 17 94 01/28/22 04:00 89 21 95 01/28/22 03:30 93 H 21 94 01/28/22 03:02 167/109 H 01/28/22 03:02 100 H 16 96 01/28/22 03:00 97 H 23 95 01/28/22 02:30 94 H 21 93 01/28/22 02:00 97 H 24 95 01/28/22 01:30 95 H 22 94 01/28/22 01:00 104 H 22 95 01/28/22 00:30 95 H 22 96 01/28/22 00:00 104 H 29 H 93 01/27/22 23:30 93 H 19 92 01/28/22 02:52 94 Nasal Cannula 01/28/22 00:44 111 H 01/27/22 23:19 167/106 H 01/27/22 23:19 100 H 9 L 01/27/22 23:00 123 H 15 93 01/27/22 23:00 163/113 H 01/27/22 22:30 85 14 92 01/27/22 22:00 91 H 10 L 93 Room Air 01/27/22 22:00 149/107 H 01/27/22 21:30 99 H 14 96 01/27/22 21:00 94 H 15 95 01/27/22 21:00 148/101 H 01/27/22 20:30 86 21 94 01/27/22 20:00 120 H 16 93 01/27/22 20:00 169/100 H 01/27/22 19:30 92 H 18 92 01/27/22 20:40 Room Air O2 Flow Rate 01/28/22 05:30 01/28/22 05:00 01/28/22 04:54 01/28/22 04:54 01/28/22 04:30 01/28/22 04:00 01/28/22 03:30 01/28/22 03:02 01/28/22 03:02 01/28/22 03:00 01/28/22 02:30 01/28/22 02:00 01/28/22 01:30 01/28/22 01:00 01/28/22 00:30 01/28/22 00:00 01/27/22 23:30 01/28/22 02:52 2 01/28/22 00:44 01/27/22 23:19 01/27/22 23:19 01/27/22 23:00 01/27/22 23:00 01/27/22 22:30 01/27/22 22:00 01/27/22 22:00 01/27/22 21:30 01/27/22 21:00 01/27/22 21:00 01/27/22 20:30 01/27/22 20:00 01/27/22 20:00 01/27/22 19:30 01/27/22 20:40 PG Care Time/CCT Total # of Minutes Spent Total Time Spent with Patient: Total time spent is greater than 50% in coordination of care (as documented) at patient's floor/unit and/or counseling patient: Coding Diagnoses Suicide attempt by fentanyl overdose T40.412A Leukocytosis D72.829 Hypertension I10
--- NOTE | 2022-01-28 13:16 | Discharge Summary ---
Discharge Summary Date of Service January 28, 2022 Admission HPI Per Admitting Provider 26-year-old female past medical history significant for depression, ADHD presented to the ER via EMS after being found unresponsive by her family members. She reports that she chewed up 10 of a family member's fentanyl patches in an effort to attempt suicide. She was given several doses of Narcan by EMS and by time of ER evaluation patient was alert and oriented. Admission lab work was performed for psychiatric admission and patient was noted to have a leukocytosis to 35,000 with a left shift. Head CT did not show any acute intracranial pathology. Chest x-ray without evidence of pneumonia. Urinalysis did not appear infected. Hospitalist service was consulted for admission for evaluation of leukocytosis. Admission Exam Per Admitting Provider Constitutional: well developed and well nourished; no acute distress Eyes: PERRL, conjunctivae normal, anicteric sclerae ENMT: external ear and nose normal, oropharynx normal Neck: trachea midline, no thyromegaly Respiratory: normal respiratory effort, lungs clear to auscultation Cardiovascular: RRR, no murmur, no edema Gastrointestinal (Abdomen): normal bowel sounds, soft, nontender, no hepatosplenomegaly Musculoskeletal: no cyanosis or clubbing, extremities motor strength 5/5 Skin: no rashes, warm and dry Neurologic: AAOx3, normal speech. PERRLA, EOMI, no nystagmus. Bilateral UE, LE, and face without sensory or motor deficits. No tremor. Psychiatric: A+Ox3, euthymic affect Principal Dx & Hospital Course #1 = Principal Diagnosis (1) Suicide attempt by fentanyl overdose: 26-year-old female past medical history significant for depression and ADHD admitted for suicide attempt by fentanyl overdose, with incidentally noted leukocytosis on admission lab testing. Suicide attempt: Patient reports having chewed 10-12 fentanyl patches with the intent to end her life. Found unresponsive with agonal breathing by family members. Received several doses of Narcan by EMS. She reports that her overdosed on fentanyl in September and has she has been struggling emotionally since that time. Behavioral Health/Psychiatry onboard, and today will transfer to Psychiatric care inpatient. (2) Leukocytosis: Incidentally noted leukocytosis on admission lab work of 35.77, which has since downtrended to 13.2. No localizable signs or sources of infection. Patient herself does not have any localizable complaints since arousal with Narcan. Chest x-ray without evidence of pneumonia. COVID-[address] head without any acute findings. Patient does not have any findings suggestive of meningitis. Urinalysis does not show evidence of infection. No skin or soft tissue injuries, puncture wounds. Blood cultures were collected, and patient received Vanc/Zosyn x1 in ER. BCx negative at ~36 hours. Leukocytosis likely due to demargination from stress of fentanyl overdose. Patient is felt to be medically stable for discharge to Psych, will be via 201. (3) Hypertension: History of HTN per patient without intervention by medical provider. BP 130-160/80-100 this admission. While patient is undergoing significant stressors with recent suicide attempt, patient reports some high BPs at home as well. Recommend PCP follow-up for BP control. Plan Dispo: Psychiatric admission Discharge Exam Constitutional WD/WN, vitals as above Psychiatric A+Ox3, euthymic affect Hospital Stay Data Consultations 01/27/22 07:33 ED Decision to Admit Stat 01/27/22 12:32 Consult Psychiatry Routine 01/27/22 12:40 Consult Behavioral Health Liaison Routine Diagnostic Imagining Performed 01/27/22 03:47 CT head/brain wo con Urgent Pending Results Patient Have Any Pending Studies at Discharge: No Discharge Instructions Given to Patient (Per Discharging Provider) You were admitted to the hospital for evaluation of a high white blood cell co unt. This elevation was due to the stress of your overdose on your body. Your white blood cell count came down to almost normal on the day you were transferred to Psychiatry service. Please follow up on your blood pressure with a primary care doctor in the [place] area. Your blood pressures were a bit high while you were here, and it is important to have that controlled when possible as high blood pressure can create medical problems later in life. Total Time Total Time Spent Total Time Spent (In Minutes): 45 Coding Level of Care Code D/C DAY MANAGEMENT >30 MINS Diagnoses Suicide attempt by fentanyl overdose T40.412A Leukocytosis D72.829 Hypertension I10
== END 2022-01-28 13:43 | DRG 918 ==
LOC: ED 23:52 → 1E 01-27 10:03

== ENCOUNTER 2022-01-28 12:44 | Inpatient (IN) ==
[2022-01-28] MEDS ORDERED: BISMUTH SUBSALICYLATE LIQD 236 ML PO PRN (13:21)
[2022-01-28] MEDS ORDERED: hydrOXYzine HCl 25 MG TAB PO PRN ×2 (13:21)
[2022-01-28] MEDS ORDERED: SODIUM CHLORIDE 0.65% NA SOLN 45 ML (OCEAN) PRN (13:21)
[2022-01-28] MEDS ORDERED: ALUMINUM/MAGNESIUM SUSP 30 ML UDC PO PRN (13:21)
[2022-01-28] MEDS ORDERED: MAGNESIUM HYDROXIDE SUSP 30 ML UDC PO PRN (13:21)
[2022-01-29] MEDS: ACETAMINOPHEN 325 MG TAB PO PRN (02:40)
[2022-01-29] MEDS ORDERED: FLUARIX QUADRIVALENT 0.5 ML SYR IM ONE (06:52)
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
[2022-01-30] MEDS ORDERED: cloNIDine HCL 0.1 MG TAB PO PRN (09:35)
[2022-01-30] MEDS ORDERED: DIPHENOXYLATE/ATROPINE 2.5/0.025MG TAB PO PRN (09:35)
[2022-01-30] MEDS ORDERED: ONDANSETRON 4 MG OD TAB PO STA (09:36)
[2022-01-30] MEDS ORDERED: ONDANSETRON 4 MG OD TAB PO PRN (09:36)
--- NOTE | 2022-01-30 10:26 | Psychiatric Progress Note ---
Date of Service January 30, 2022 Impression / Recommendations Impression 26 yo female, denied substance use hx, attempted OD on fentanyl patches few months after loss of from fentanyl OD (presumably tainted cocaine in [place]). Remains guarded. Did not ask for sleep medication. BP and P elevated with N and sweats. (1) Depression: (2) Complicated bereavement: (3) Suicide attempt by fentanyl overdose: Plan 01/30/22: 1 time dose of clonidine and initiate detox protocol with clonidine and lomotil. Zofran prn, deferring start of SSRI as not eating consistently and N, pantoprazole 40 mg daily as suspect mild gastritis following ingestion of patches. 01/29/22: The patient was [facility] mental [facility] unit) on q15 min checks (behavioral with suicide precautions) for safety. The patient will participate in group, recreational, and milieu therapies and will be offered additional individual and family sessions as clinically appropriate. Risks/benefits/alternatives reviewed re: antidepressants and sleep agents. The patient agreed to Vistaril standing order on trial basis and is willing to discuss antidepressant options more in am as remains overwhelmed. She denies withdrawal symptoms. Inventory Assets Strengths: has local supports, voluntary Needs: therapy, case management Suicide Risk Level Suicide Risk Level: High-Moderate (q15 min suicide checks) Risk Factors Assessment : Yes Do You Have Access To A Gun?: No Mental Health Diagnoses: Yes Substance Use Disorders: No Previous Psychiatric Hospitalization: Yes Protective Factors Assessment Responsible for Young Children: Yes Interval History Identifying Information BELLA LOVE is a 26-year-old F who currently lives in [place], has a history psychiatric admissions as a teenager, and was admitted on 01/28/22 14:11 on a 201 voluntary commitment on discharge from the medical floor following an intentional OD. Chief Complaint "I guess I was a little sweaty overnight and didn't sleep well." Review of Systems Sleep Information Total Hours of Sleep: 7 Meal Information Percent Meal Consumed - Breakfast: 0 Percent Meal Consumed - Lunch: 0 Percent Meal Consumed - Dinner: 100 Nutrition Comment: Poor appetite; meal saved per patient request Subjective Subjective Patient was seen & assessed and interval progress reviewed with treatment team. poor appetite yesterday, ate only supper. c/o significant N, no emesis this am. Denies stomach cramps or piloerection but reports was sweating overnight. Patient was educated on signs/sx of opiate withdrawal as she has been tachy. Physical Exam Psychiatric Orientation: alert and oriented x 3 Apperance: appropriately dressed and appropriately groomed Eye Contact: good eye contact Motor Behavior: no abnormal motor movements Speech: normal rate/rhythm/volume of speech Affect: + depressed affect Mood: + depressed mood Thought Process: goal directed thought process Thought Content: reality based without delusions Suicidal Thoughts: denies suicidal plan and denies suicidal intent; + reports suicidal thoughts (although doesn't report, doesn't deny, no remorse for OD) Homicidal Thoughts: denies homicidal thoughts Hallucinations: no auditory hallucinations and no visual hallucinations Cognition: attention grossly intact and language grossly intact Estimated Intelligence: consistent with education level Insight: + limited insight Judgement: + limited judgement Vital Signs (Past 24 Hours) Last Vital Signs Temp 37 C 01/30/22 06:36 Pulse 102 H 01/30/22 06:36 Resp 16 01/30/22 06:36 BP 152/89 H 01/30/22 06:36 Pulse Ox 98 01/28/22 14:51 O2 Del Method 01/28/22 14:51 Results & Data ([facility]) Current Inpatient Medications Current Inpatient Medications: Current Inpatient Medications Acetaminophen (Acetaminophen 325 Mg Tab) 650 mg PO Q4H PRN PRN Reason: Headache or Minor Fever Stop: 02/27/22 13:20 Last Admin: 01/29/22 02:40 Dose: 650 mg Al Hydrox/Mg Hydrox/Simethicone (Aluminum/Magnesium Susp 30 Ml Udc) 30 ml PO Q4H PRN PRN Reason: GI Upset Stop: 02/27/22 13:20 Bismuth Subsalicylate (Bismuth Subsalicylate Liqd 236 Ml) 15 ml PO PRN PRN PRN Reason: Loose Stool Stop: 02/27/22 13:20 Clonidine HCl (Clonidine Hcl 0.1 Mg Tab) 0.1 mg PO Q2H PRN PRN Reason: For ANY 2 Symptoms Stop: 03/01/22 09:34 Diphenoxylate HCl/Atropine (Diphenoxylate/Atropine 2.5/0.025mg Tab) 1 tab PO Q4H PRN PRN Reason: Abdominal Cramping/Diarrhea Stop: 03/01/22 09:34 Hydroxyzine HCl (Hydroxyzine Hcl 25 Mg Tab) 50 mg PO HSZ PRN PRN Reason: Insomnia Stop: 02/27/22 13:20 Hydroxyzine HCl (Hydroxyzine Hcl 25 Mg Tab) 25 mg PO Q4H PRN PRN Reason: Anxiety Stop: 02/27/22 13:20 Hydroxyzine HCl (Hydroxyzine Hcl 25 Mg Tab) 50 mg PO HS CATHRYN Stop: 03/01/22 21:59 Magnesium Hydroxide (Magnesium Hydroxide Susp 30 Ml Udc) 30 ml PO DAILY PRN PRN Reason: Constipation Stop: 02/27/22 13:20 Ondansetron HCl (Ondansetron 4 Mg Od Tab) 4 mg PO Q6H PRN PRN Reason: Nausea Stop: 03/01/22 09:35 Pantoprazole Sodium (Pantoprazole 40 Mg Tab) 40 mg PO QAM CATHRYN Stop: 03/01/22 09:44 Sodium Chloride (Sodium Chloride 0.65% Na Soln 45 Ml ([place])) 1 - 2 sprays NA PRN PRN PRN Reason: Nasal Dryness/Congestion Stop: 02/27/22 13:20
[2022-01-30] MEDS: PANTOprazole 40 MG TAB PO SCH (10:48)
[2022-01-30] MEDS ORDERED: cloNIDine HCL 0.1 MG TAB PO ONE (11:20)
[2022-01-30] MEDS: hydrOXYzine HCl 25 MG TAB PO SCH (21:20)
[2022-01-31] MEDS: PANTOprazole 40 MG TAB PO SCH (08:44)
[2022-01-31] MEDS: buPROPion SR 100 MG TABCR PO SCH (11:50)
--- NOTE | 2022-01-31 12:45 | Psychiatric Progress Note ---
Date of Service January 31, 2022 Impression / Recommendations Impression 26 yo female, denied substance use hx, attempted OD on fentanyl patches few months after loss of from fentanyl OD (presumably tainted cocaine in [place]). Remains guarded. Did not ask for sleep medication. BP and P elevated with N and sweats on 01/30/22. 01/31/22: physically improved, remains guarded and depressed. (1) Depression: (2) Complicated bereavement: (3) Suicide attempt by fentanyl overdose: Plan 01/31/22: Risks/benefits/alternatives reviewed re: antidepressants for the treatment of depression and/or anxiety. Discussion included but was not limited to FDA warnings re: suicidality in adolescents and young adults. The patient agreed to a trial of Wellbutrin SR 100 mg po qam starting today and monitor for jitteriness given co-morbid anxiety. 01/30/22: 1 time dose of clonidine and initiate detox protocol with clonidine and lomotil. Zofran prn, deferring start of SSRI as not eating consistently and N, pantoprazole 40 mg daily as suspect mild gastritis following ingestion of patches. 01/29/22: The patient was admitted to the [facility] ([facility] mental health unit) on q15 min checks (behavioral with suicide precautions) for safety. The patient will participate in group, recreational, and milieu therapies and will be offered additional individual and family sessions as clinically appropriate. Risks/benefits/alternatives reviewed re: antidepressants and sleep agents. The patient agreed to Vistaril standing order on trial basis and is willing to discuss antidepressant options more in am as remains overwhelmed. She denies withdrawal symptoms. Inventory Assets Strengths: has local supports, voluntary Needs: therapy, case management Suicide Risk Level Suicide Risk Level: High-Moderate (q15 min suicide checks) Risk Factors Assessment : Yes Do You Have Access To A Gun?: No Mental Health Diagnoses: Yes Substance Use Disorders: No Previous Psychiatric Hospitalization: Yes Protective Factors Assessment Responsible for Young Children: Yes Interval History Identifying Information BELLA LOVE is a 26-year-old F who currently lives in [place], has a history psychiatric admissions as a teenager, and was admitted on 01/28/22 14:11 on a 201 voluntary commitment on discharge from the medical floor following an intentional OD. Chief Complaint "feeling physically better but alot of family stuff." Review of Systems Sleep Information Total Hours of Sleep: 7 Meal Information Percent Meal Consumed - Breakfast: 100 Percent Meal Consumed - Lunch: 25 Percent Meal Consumed - Dinner: 10 Nutrition Comment: Poor appetite; meal saved per patient request Subjective Subjective Patient was seen & assessed and interval progress reviewed with nursing and social work. Reportedly aunt and uncle are ambivalent about her ability to return home and may seek guardianship of child. She was not aware of the former and expressed overwhelm/shut down about issues related to guardianship. Discussed possible service options [facility], [facility], etc. to support patient. Reviewed that family likely seeking to ensure she will follow through on medication and recommended therapies. She was receptive to family meeting. Physical Exam Psychiatric Orientation: alert and oriented x 3 Apperance: appropriately dressed and appropriately groomed Eye Contact: good eye contact Motor Behavior: no abnormal motor movements Speech: normal rate/rhythm/volume of speech Affect: + depressed affect Mood: + depressed mood Thought Process: goal directed thought process Thought Content: reality based without delusions Suicidal Thoughts: denies suicidal plan and denies suicidal intent; + reports suicidal thoughts (although doesn't report, doesn't deny, no remorse for OD) Homicidal Thoughts: denies homicidal thoughts Hallucinations: no auditory hallucinations and no visual hallucinations Cognition: attention grossly intact and language grossly intact Estimated Intelligence: consistent with education level Insight: + limited insight Judgement: + limited judgement Vital Signs (Past 24 Hours) Last Vital Signs Temp 37.1 C 01/31/22 06:31 Pulse 83 01/31/22 06:35 Resp 16 01/31/22 06:31 BP 159/96 H 01/31/22 06:35 Pulse Ox 98 01/28/22 14:51 O2 Del Method 01/28/22 14:51 Results & Data ([facility]) Current Inpatient Medications Current Inpatient Medications: Current Inpatient Medications Acetaminophen (Acetaminophen 325 Mg Tab) 650 mg PO Q4H PRN PRN Reason: Headache or Minor Fever Stop: 02/27/22 13:20 Last Admin: 01/29/22 02:40 Dose: 650 mg Al Hydrox/Mg Hydrox/Simethicone (Aluminum/Magnesium Susp 30 Ml Udc) 30 ml PO Q4H PRN PRN Reason: GI Upset Stop: 02/27/22 13:20 Bismuth Subsalicylate (Bismuth Subsalicylate Liqd 236 Ml) 15 ml PO PRN PRN PRN Reason: Loose Stool Stop: 02/27/22 13:20 Bupropion HCl (Bupropion Sr 100 Mg Tabcr) 100 mg PO QAM CATHRYN Stop: 03/02/22 10:44 Last Admin: 01/31/22 11:50 Dose: 100 mg Clonidine HCl (Clonidine Hcl 0.1 Mg Tab) 0.1 mg PO Q2H PRN PRN Reason: For ANY 2 Symptoms Stop: 03/01/22 09:34 Diphenoxylate HCl/Atropine (Diphenoxylate/Atropine 2.5/0.025mg Tab) 1 tab PO Q4H PRN PRN Reason: Abdominal Cramping/Diarrhea Stop: 03/01/22 09:34 Hydroxyzine HCl (Hydroxyzine Hcl 25 Mg Tab) 50 mg PO HSZ PRN PRN Reason: Insomnia Stop: 02/27/22 13:20 Hydroxyzine HCl (Hydroxyzine Hcl 25 Mg Tab) 25 mg PO Q4H PRN PRN Reason: Anxiety Stop: 02/27/22 13:20 Hydroxyzine HCl (Hydroxyzine Hcl 25 Mg Tab) 50 mg PO HS CATHRYN Stop: 03/01/22 21:59 Last Admin: 01/30/22 21:20 Dose: 50 mg Magnesium Hydroxide (Magnesium Hydroxide Susp 30 Ml Udc) 30 ml PO DAILY PRN PRN Reason: Constipation Stop: 02/27/22 13:20 Ondansetron HCl (Ondansetron 4 Mg Od Tab) 4 mg PO Q6H PRN PRN Reason: Nausea Stop: 03/01/22 09:35 Pantoprazole Sodium (Pantoprazole 40 Mg Tab) 40 mg PO QAM CATHRYN Stop: 03/01/22 09:44 Last Admin: 01/31/22 08:44 Dose: 40 mg Sodium Chloride (Sodium Chloride 0.65% Na Soln 45 Ml ([place])) 1 - 2 sprays NA PRN PRN PRN Reason: Nasal Dryness/Congestion Stop: 02/27/22 13:20 Mental Health & Subst Abuse Tx Psychiatrist Name of Psychiatrist: [facility] - Dr. Moni Olmedo Psychiatrist's Date of Appointment with Psychiatrist: 02/13/22 Time of Appointment with Psychiatrist: 1:30 PM Psychiatric Appointment Comment: [address] [place] [id number] Therapist Name of Therapist: [facility] - on waitlist Therapist's Therapy Appointment Comment: [address] [place] [phone]
[2022-01-31] MEDS ORDERED: cloNIDine HCL 0.1 MG TAB PO ONE (14:27)
[2022-01-31] MEDS: hydrOXYzine HCl 25 MG TAB PO SCH (21:27)
[2022-01-31] MEDS: cloNIDine HCL 0.1 MG TAB PO PRN (21:27)
[2022-02-01] MEDS: buPROPion SR 100 MG TABCR PO SCH (07:51)
[2022-02-01] MEDS: PANTOprazole 40 MG TAB PO SCH (07:51)
--- NOTE | 2022-02-01 14:26 | Psychiatric Progress Note ---
Date of Service February 01, 2022 Impression / Recommendations Impression 26 yo female, denied substance use hx, attempted OD on fentanyl patches few months after loss of from fentanyl OD (presumably tainted cocaine in [place]). Intermittent elevations in BP/P coinciding with stress around aunt/uncle's demand for guardianship of son. 02/01/22: unchanged (1) Depression: (2) Complicated bereavement: (3) Suicide attempt by fentanyl overdose: Plan 02/01/22: risks/benefits/alternatives reviewed re: antihypertensives that could help with anxiety/tachy. Agreed to a trial of low dose propranolol. Continue current dose of Wellbutrin for now. 01/31/22: Risks/benefits/alternatives reviewed re: antidepressants for the treatment of depression and/or anxiety. Discussion included but was not limited to FDA warnings re: suicidality in adolescents and young adults. The patient agreed to a trial of Wellbutrin SR 100 mg po qam starting today and monitor for jitteriness given co-morbid anxiety. 01/30/22: 1 time dose of clonidine and initiate detox protocol with clonidine and lomotil. Zofran prn, deferring start of SSRI as not eating consistently and N, pantoprazole 40 mg daily as suspect mild gastritis following ingestion of patches. 01/29/22: The patient was admitted to the [facility] ([facility] mental health unit) on q15 min checks (behavioral with suicide precautions) for safety. The patient will participate in group, recreational, and milieu therapies and will be offered additional individual and family sessions as clinically appropriate. Risks/benefits/alternatives reviewed re: antidepressants and sleep agents. The patient agreed to Vistaril standing order on trial basis and is willing to discuss antidepressant options more in am as remains overwhelmed. She denies withdrawal symptoms. Inventory Assets Strengths: has local supports, voluntary Needs: therapy, case management Suicide Risk Level Suicide Risk Level: High-Moderate (q15 min suicide checks) Risk Factors Assessment : Yes Do You Have Access To A Gun?: No Mental Health Diagnoses: Yes Substance Use Disorders: No Previous Psychiatric Hospitalization: Yes Protective Factors Assessment Responsible for Young Children: Yes Interval History Identifying Information BELLA LOVE is a 26-year-old F who currently lives in [place], has a history psychiatric admissions as a teenager, and was admitted on 01/28/22 14:11 on a 201 voluntary commitment on discharge from the medical floor following an intentional OD. Chief Complaint "I guess I'm just numb" Review of Systems Sleep Information Total Hours of Sleep: 6 Meal Information Percent Meal Consumed - Breakfast: 50 Percent Meal Consumed - Lunch: 25 Percent Meal Consumed - Dinner: 25 Subjective Subjective Patient was seen & assessed and interval progress reviewed with treatment team. States that she felt pressured to sign papers that she did not agree to. Will submit application to qualify for cyber legal advisor given child custody issues. Has spoken with aunt/child since the incident with uncle at unit. BP/P remain elevated intermittently. Physical Exam Psychiatric Orientation: alert and oriented x 3 Apperance: appropriately dressed and appropriately groomed Eye Contact: good eye contact Motor Behavior: no abnormal motor movements Speech: normal rate/rhythm/volume of speech Affect: + depressed affect Mood: + depressed mood Thought Process: goal directed thought process Thought Content: reality based without delusions Suicidal Thoughts: denies suicidal thoughts (but numb, doesn't express remorse for OD.), denies suicidal plan and denies suicidal intent Homicidal Thoughts: denies homicidal thoughts Hallucinations: no auditory hallucinations and no visual hallucinations Cognition: attention grossly intact and language grossly intact Estimated Intelligence: consistent with education level Insight: + limited insight Judgement: + limited judgement Vital Signs (Past 24 Hours) Last Vital Signs Temp 37.1 C 02/01/22 09:13 Pulse 76 02/01/22 09:13 Resp 18 02/01/22 09:13 BP 150/87 H 02/01/22 09:13 Pulse Ox 97 01/31/22 18:57 O2 Del Method 01/31/22 18:57 Results & Data ([facility]) Current Inpatient Medications Current Inpatient Medications: Current Inpatient Medications Acetaminophen (Acetaminophen 325 Mg Tab) 650 mg PO Q4H PRN PRN Reason: Headache or Minor Fever Stop: 02/27/22 13:20 Last Admin: 01/29/22 02:40 Dose: 650 mg Al Hydrox/Mg Hydrox/Simethicone (Aluminum/Magnesium Susp 30 Ml Udc) 30 ml PO Q4H PRN PRN Reason: GI Upset Stop: 02/27/22 13:20 Bismuth Subsalicylate (Bismuth Subsalicylate Liqd 236 Ml) 15 ml PO PRN PRN PRN Reason: Loose Stool Stop: 02/27/22 13:20 Bupropion HCl (Bupropion Sr 100 Mg Tabcr) 100 mg PO QAM CATHRYN Stop: 03/02/22 10:44 Last Admin: 02/01/22 07:51 Dose: 100 mg Clonidine HCl (Clonidine Hcl 0.1 Mg Tab) 0.1 mg PO Q4 PRN PRN Reason: Blood Pressure - High Stop: 03/02/22 14:26 Last Admin: 01/31/22 21:27 Dose: 0.1 mg Diphenoxylate HCl/Atropine (Diphenoxylate/Atropine 2.5/0.025mg Tab) 1 tab PO Q4H PRN PRN Reason: Abdominal Cramping/Diarrhea Stop: 03/01/22 09:34 Hydroxyzine HCl (Hydroxyzine Hcl 25 Mg Tab) 50 mg PO HSZ PRN PRN Reason: Insomnia Stop: 02/27/22 13:20 Hydroxyzine HCl (Hydroxyzine Hcl 25 Mg Tab) 25 mg PO Q4H PRN PRN Reason: Anxiety Stop: 02/27/22 13:20 Hydroxyzine HCl (Hydroxyzine Hcl 25 Mg Tab) 50 mg PO HS CATHRYN Stop: 03/01/22 21:59 Last Admin: 01/31/22 21:27 Dose: 50 mg Magnesium Hydroxide (Magnesium Hydroxide Susp 30 Ml Udc) 30 ml PO DAILY PRN PRN Reason: Constipation Stop: 02/27/22 13:20 Ondansetron HCl (Ondansetron 4 Mg Od Tab) 4 mg PO Q6H PRN PRN Reason: Nausea Stop: 03/01/22 09:35 Pantoprazole Sodium (Pantoprazole 40 Mg Tab) 40 mg PO QAM CATHRYN Stop: 03/01/22 09:44 Last Admin: 02/01/22 07:51 Dose: 40 mg Sodium Chloride (Sodium Chloride 0.65% Na Soln 45 Ml ([place])) 1 - 2 sprays NA PRN PRN PRN Reason: Nasal Dryness/Congestion Stop: 02/27/22 13:20 Mental Health & Subst Abuse Tx Psychiatrist Name of Psychiatrist: [facility] - Dr. Moni Olmedo Psychiatrist's Date of Appointment with Psychiatrist: 02/13/22 Time of Appointment with Psychiatrist: 1:30 PM Psychiatric Appointment Comment: [address] [place] [phone]. Please provide updated insurance info Therapist Name of Therapist: [facility] - on waitlist Therapist's Therapy Appointment Comment: [address] [place] [address] [place] [address] Suspender Maker Name of Suspender Maker: [employer] Phone Number for Suspender Maker: [phone] Case Management Appointment Comment: Follow up for CM assignment. Post Discharge Appointments Primary Care Physician Name Of Family Doctor: [facility] - SYDNEE Hitchcock Primary Care Date of Appointment with PCP: 02/20/22 Time of Appointment with PCP: 10:45 AM Provider Appointment Comment: [address] [place] [phone]
[2022-02-01] MEDS: PROPRANOLOL HCL 10 MG TAB PO SCH (16:02)
[2022-02-01] MEDS: hydrOXYzine HCl 25 MG TAB PO SCH (20:31)
[2022-02-01] MEDS: cloNIDine HCL 0.1 MG TAB PO PRN (20:33)
[2022-02-02] MEDS: PROPRANOLOL HCL 10 MG TAB PO SCH ×2 (09:00→09:38)
[2022-02-02] MEDS: PANTOprazole 40 MG TAB PO SCH ×2 (09:00→09:38)
[2022-02-02] MEDS: buPROPion SR 100 MG TABCR PO SCH (09:38)
--- NOTE | 2022-02-02 14:18 | Psychiatric Progress Note ---
Date of Service February 02, 2022 Impression / Recommendations Impression 26 yo female, denied substance use hx, attempted OD on fentanyl patches few months after loss of from fentanyl OD (presumably tainted cocaine in [place]). Intermittent elevations in BP/P coinciding with stress around aunt/uncle's demand for guardianship of son. CYS will interview patient. 02/02/22: remains at significant risk of suicide given limited social supports, unclear if can return home (1) Depression: (2) Complicated bereavement: (3) Suicide attempt by fentanyl overdose: Plan 02/02/22: Titrate Wellbutrin XL to 150 mg. 02/01/22: risks/benefits/alternatives reviewed re: antihypertensives that could help with anxiety/tachy. Agreed to a trial of low dose propranolol. Continue current dose of Wellbutrin for now. 01/31/22: Risks/benefits/alternatives reviewed re: antidepressants for the treatment of depression and/or anxiety. Discussion included but was not limited to FDA warnings re: suicidality in adolescents and young adults. The patient agreed to a trial of Wellbutrin SR 100 mg po qam starting today and monitor for jitteriness given co-morbid anxiety. 01/30/22: 1 time dose of clonidine and initiate detox protocol with clonidine and lomotil. Zofran prn, deferring start of SSRI as not eating consistently and N, pantoprazole 40 mg daily as suspect mild gastritis following ingestion of patches. 01/29/22: The patient was admitted to the [facility] ([facility] mental health unit) on q15 min checks (behavioral with suicide precautions) for safety. The patient will participate in group, recreational, and milieu therapies and will be offered additional individual and family sessions as clinically appropriate. Risks/benefits/alternatives reviewed re: antidepressants and sleep agents. The patient agreed to Vistaril standing order on trial basis and is willing to discuss antidepressant options more in am as remains overwhelmed. She denies withdrawal symptoms. Suicide Risk Level Suicide Risk Level: High-Moderate (q15 min suicide checks) Risk Factors Assessment : Yes Do You Have Access To A Gun?: No Mental Health Diagnoses: Yes Substance Use Disorders: No Previous Psychiatric Hospitalization: Yes Protective Factors Assessment Responsible for Young Children: Yes Interval History Identifying Information BELLA LOVE is a 26-year-old F who currently lives in [place], has a history psychiatric admissions as a teenager, and was admitted on 01/28/22 14:11 on a 201 voluntary commitment on discharge from the medical floor following an intentional OD. Chief Complaint "I did meet with the CM and call CYS, it was hard but sort of a relief." Review of Systems Sleep Information Total Hours of Sleep: 7 Meal Information Percent Meal Consumed - Breakfast: 100 Percent Meal Consumed - Lunch: 30 Percent Meal Consumed - Dinner: 0 Subjective Subjective Patient was seen & assessed and interval progress reviewed with nursing and social work. actually seems be willing to socialize with peers a bit more on unit and will brighten spontaneously on interaction. BP and P improved today and she denies waking up feeling dizzy. Physical Exam Psychiatric Orientation: alert and oriented x 3 Apperance: appropriately dressed and appropriately groomed Eye Contact: good eye contact Motor Behavior: no abnormal motor movements Speech: normal rate/rhythm/volume of speech Affect: + depressed affect Mood: + depressed mood Thought Process: goal directed thought process Thought Content: reality based without delusions Suicidal Thoughts: denies suicidal thoughts (but numb, doesn't express remorse for OD.), denies suicidal plan and denies suicidal intent Homicidal Thoughts: denies homicidal thoughts Hallucinations: no auditory hallucinations and no visual hallucinations Cognition: attention grossly intact and language grossly intact Estimated Intelligence: consistent with education level Insight: + limited insight Judgement: + limited judgement Vital Signs (Past 24 Hours) Last Vital Signs Temp 36.8 C 02/02/22 06:32 Pulse 80 02/02/22 06:33 Resp 16 02/02/22 06:32 BP 132/91 02/02/22 06:33 Pulse Ox 97 01/31/22 18:57 O2 Del Method 01/31/22 18:57 Results & Data ([facility]) Current Inpatient Medications Current Inpatient Medications: Current Inpatient Medications Acetaminophen (Acetaminophen 325 Mg Tab) 650 mg PO Q4H PRN PRN Reason: Headache or Minor Fever Stop: 02/27/22 13:20 Last Admin: 01/29/22 02:40 Dose: 650 mg Al Hydrox/Mg Hydrox/Simethicone (Aluminum/Magnesium Susp 30 Ml Udc) 30 ml PO Q4H PRN PRN Reason: GI Upset Stop: 02/27/22 13:20 Bismuth Subsalicylate (Bismuth Subsalicylate Liqd 236 Ml) 15 ml PO PRN PRN PRN Reason: Loose Stool Stop: 02/27/22 13:20 Bupropion HCl (Bupropion Xl 150 Mg Tabcr) 150 mg PO QAM CATHRYN Stop: 03/05/22 08:59 Clonidine HCl (Clonidine Hcl 0.1 Mg Tab) 0.1 mg PO Q4 PRN PRN Reason: Blood Pressure - High Stop: 03/02/22 14:26 Last Admin: 02/01/22 20:33 Dose: 0.1 mg Diphenoxylate HCl/Atropine (Diphenoxylate/Atropine 2.5/0.025mg Tab) 1 tab PO Q4H PRN PRN Reason: Abdominal Cramping/Diarrhea Stop: 03/01/22 09:34 Hydroxyzine HCl (Hydroxyzine Hcl 25 Mg Tab) 50 mg PO HSZ PRN PRN Reason: Insomnia Stop: 02/27/22 13:20 Hydroxyzine HCl (Hydroxyzine Hcl 25 Mg Tab) 25 mg PO Q4H PRN PRN Reason: Anxiety Stop: 02/27/22 13:20 Hydroxyzine HCl (Hydroxyzine Hcl 25 Mg Tab) 50 mg PO HS CATHRYN Stop: 03/01/22 21:59 Last Admin: 02/01/22 20:31 Dose: 50 mg Magnesium Hydroxide (Magnesium Hydroxide Susp 30 Ml Udc) 30 ml PO DAILY PRN PRN Reason: Constipation Stop: 02/27/22 13:20 Ondansetron HCl (Ondansetron 4 Mg Od Tab) 4 mg PO Q6H PRN PRN Reason: Nausea Stop: 03/01/22 09:35 Pantoprazole Sodium (Pantoprazole 40 Mg Tab) 40 mg PO QAM CATHRYN Stop: 03/01/22 09:44 Last Admin: 02/02/22 09:38 Dose: 40 mg Propranolol HCl (Propranolol Hcl 10 Mg Tab) 10 mg PO QAM CATHRYN Stop: 03/03/22 14:29 Last Admin: 02/02/22 09:38 Dose: 10 mg Sodium Chloride (Sodium Chloride 0.65% Na Soln 45 Ml ([place])) 1 - 2 sprays NA PRN PRN PRN Reason: Nasal Dryness/Congestion Stop: 02/27/22 13:20 Mental Health & Subst Abuse Tx Psychiatrist Name of Psychiatrist: [facility] - Dr. Moni Olmedo Psychiatrist's Date of Appointment with Psychiatrist: 02/13/22 Time of Appointment with Psychiatrist: 1:30 PM Psychiatric Appointment Comment: [address] [place] [phone]. Please provide updated insurance info Therapist Name of Therapist: [facility] - on waitlist Therapist's Therapy Appointment Comment: [address] [place] [phone] Major Sales Associate Name of Major Sales Associate: [employer] Phone Number for Major Sales Associate: [phone] Case Management Appointment Comment: Follow up for CM assignment. Post Discharge Appointments Primary Care Physician Name Of Family Doctor: [facility] - SYDNEE Hitchcock Primary Care Date of Appointment with PCP: 02/20/22 Time of Appointment with PCP: 10:45 AM Provider Appointment Comment: [address] [place] [phone]
[2022-02-02] MEDS: hydrOXYzine HCl 25 MG TAB PO SCH (21:55)
[2022-02-03] MEDS: PROPRANOLOL HCL 10 MG TAB PO SCH (08:39)
[2022-02-03] MEDS: PANTOprazole 40 MG TAB PO SCH (08:39)
[2022-02-03] MEDS: buPROPion XL 150 MG TABCR PO SCH (08:40)
--- NOTE | 2022-02-03 15:25 | Psychiatric Progress Note ---
Date of Service February 03, 2022 Impression / Recommendations Impression 26 yo female, denied substance use hx, attempted OD on fentanyl patches few months after loss of from fentanyl OD (presumably tainted cocaine in [place]). Intermittent elevations in BP/P coinciding with stress around aunt/uncle's demand for guardianship of son. 02/03/22: variety of stressors including custody hearing and homelessness (1) Depression: (2) Complicated bereavement: (3) Suicide attempt by fentanyl overdose: Plan 02/03/22: continue current medication and tx plan. Patient exploring housing options. 02/02/22: Titrate Wellbutrin XL to 150 mg. 02/01/22: risks/benefits/alternatives reviewed re: antihypertensives that could help with anxiety/tachy. Agreed to a trial of low dose propranolol. Continue current dose of Wellbutrin for now. 01/31/22: Risks/benefits/alternatives reviewed re: antidepressants for the treatment of depression and/or anxiety. Discussion included but was not limited to FDA warnings re: suicidality in adolescents and young adults. The patient agreed to a trial of Wellbutrin SR 100 mg po qam starting today and monitor for jitteriness given co-morbid anxiety. 01/30/22: 1 time dose of clonidine and initiate detox protocol with clonidine and lomotil. Zofran prn, deferring start of SSRI as not eating consistently and N, pantoprazole 40 mg daily as suspect mild gastritis following ingestion of patches. 01/29/22: The patient was admitted to the [facility] on q15 min checks (behavioral with suicide precautions) for safety. The patient will participate in group, recreational, and milieu therapies and will be offered additional individual and family sessions as clinically appropriate. Risks/benefits/alternatives reviewed re: antidepressants and sleep agents. The patient agreed to Vistaril standing order on trial basis and is willing to discuss antidepressant options more in am as remains overwhelmed. She denies withdrawal symptoms. Suicide Risk Level Suicide Risk Level: Moderate (q15 min suicide checks) Risk Factors Assessment : Yes Do You Have Access To A Gun?: No Mental Health Diagnoses: Yes Substance Use Disorders: No Previous Psychiatric Hospitalization: Yes Protective Factors Assessment Responsible for Young Children: Yes Interval History Identifying Information BELLA LOVE is a 26-year-old F who currently lives in [place], has a history psychiatric admissions as a teenager, and was admitted on 01/28/22 14:11 on a 201 voluntary commitment on discharge from the medical floor following an intentional OD. Chief Complaint multiple meetings Review of Systems Sleep Information Total Hours of Sleep: 6 Meal Information Percent Meal Consumed - Breakfast: 100 Percent Meal Consumed - Lunch: 50 Percent Meal Consumed - Dinner: 50 Nutrition Comment: Poor appetite; meal saved per patient request Subjective Subjective Patient was seen & assessed and interval progress reviewed with treatment team. reported irritability last pm. CYS reportedly went to home of aunt/uncle but have not talked further to patient. She spent much of day today with her returned case inspector working on housing options, services for son, etc. as was served paperwork mid am from plaster form maker's office, court hearing scheduled for 02/15. Physical Exam Psychiatric Orientation: alert and oriented x 3 Apperance: appropriately dressed and appropriately groomed Eye Contact: good eye contact Motor Behavior: no abnormal motor movements Speech: normal rate/rhythm/volume of speech Affect: + depressed affect Mood: + depressed mood Thought Process: goal directed thought process Thought Content: reality based without delusions Suicidal Thoughts: denies suicidal thoughts, denies suicidal plan and denies suicidal intent Homicidal Thoughts: denies homicidal thoughts Hallucinations: no auditory hallucinations and no visual hallucinations Cognition: attention grossly intact and language grossly intact Estimated Intelligence: consistent with education level Insight: + limited insight Judgement: + limited judgement Vital Signs (Past 24 Hours) Last Vital Signs Temp 36.9 C 02/03/22 06:37 Pulse 76 02/03/22 06:38 Resp 16 02/03/22 06:37 BP 138/96 02/03/22 06:38 Pulse Ox 97 01/31/22 18:57 O2 Del Method 01/31/22 18:57 Results & Data ([facility]) Current Inpatient Medications Current Inpatient Medications: Current Inpatient Medications Acetaminophen (Acetaminophen 325 Mg Tab) 650 mg PO Q4H PRN PRN Reason: Headache or Minor Fever Stop: 02/27/22 13:20 Last Admin: 01/29/22 02:40 Dose: 650 mg Al Hydrox/Mg Hydrox/Simethicone (Aluminum/Magnesium Susp 30 Ml Udc) 30 ml PO Q4H PRN PRN Reason: GI Upset Stop: 02/27/22 13:20 Bismuth Subsalicylate (Bismuth Subsalicylate Liqd 236 Ml) 15 ml PO PRN PRN PRN Reason: Loose Stool Stop: 02/27/22 13:20 Bupropion HCl (Bupropion Xl 150 Mg Tabcr) 150 mg PO QAM CATHRYN Stop: 03/05/22 08:59 Last Admin: 02/03/22 08:40 Dose: 150 mg Clonidine HCl (Clonidine Hcl 0.1 Mg Tab) 0.1 mg PO Q4 PRN PRN Reason: Blood Pressure - High Stop: 03/02/22 14:26 Last Admin: 02/01/22 20:33 Dose: 0.1 mg Diphenoxylate HCl/Atropine (Diphenoxylate/Atropine 2.5/0.025mg Tab) 1 tab PO Q4H PRN PRN Reason: Abdominal Cramping/Diarrhea Stop: 03/01/22 09:34 Hydroxyzine HCl (Hydroxyzine Hcl 25 Mg Tab) 50 mg PO HSZ PRN PRN Reason: Insomnia Stop: 02/27/22 13:20 Hydroxyzine HCl (Hydroxyzine Hcl 25 Mg Tab) 25 mg PO Q4H PRN PRN Reason: Anxiety Stop: 02/27/22 13:20 Hydroxyzine HCl (Hydroxyzine Hcl 25 Mg Tab) 50 mg PO HS CATHRYN Stop: 03/01/22 21:59 Last Admin: 02/02/22 21:55 Dose: 50 mg Magnesium Hydroxide (Magnesium Hydroxide Susp 30 Ml Udc) 30 ml PO DAILY PRN PRN Reason: Constipation Stop: 02/27/22 13:20 Ondansetron HCl (Ondansetron 4 Mg Od Tab) 4 mg PO Q6H PRN PRN Reason: Nausea Stop: 03/01/22 09:35 Pantoprazole Sodium (Pantoprazole 40 Mg Tab) 40 mg PO QAM CATHRYN Stop: 03/01/22 09:44 Last Admin: 02/03/22 08:39 Dose: 40 mg Propranolol HCl (Propranolol Hcl 10 Mg Tab) 10 mg PO QAM CATHRYN Stop: 03/03/22 14:29 Last Admin: 02/03/22 08:39 Dose: 10 mg Sodium Chloride (Sodium Chloride 0.65% Na Soln 45 Ml ([place])) 1 - 2 sprays NA PRN PRN PRN Reason: Nasal Dryness/Congestion Stop: 02/27/22 13:20 Mental Health & Subst Abuse Tx Psychiatrist Name of Psychiatrist: [facility] - Dr. Moni Olmedo Psychiatrist's Date of Appointment with Psychiatrist: 02/13/22 Time of Appointment with Psychiatrist: 1:30 PM Psychiatric Appointment Comment: [address] [place] [address]. Please provide updated insurance info Therapist Name of Therapist: [facility] - on waitlist Therapist's Therapy Appointment Comment: [address] [place] [address] [employer] Dean Name of [employer] Dean: [employer] Phone Number for [employer] Dean: [phone] Case Management Appointment Comment: Follow up for CM assignment. Post Discharge Appointments Primary Care Physician Name Of Family Doctor: [facility] - [facility]DNEE [facility]cock Primary Care Date of Appointment with PCP: 02/20/22 Time of Appointment with PCP: 10:45 AM Provider Appointment Comment: [address] [place] [address]
[2022-02-03] MEDS: hydrOXYzine HCl 25 MG TAB PO SCH (21:57)
[2022-02-04] MEDS: PROPRANOLOL HCL 10 MG TAB PO SCH (07:57)
[2022-02-04] MEDS: buPROPion XL 150 MG TABCR PO SCH (07:57)
[2022-02-04] MEDS: PANTOprazole 40 MG TAB PO SCH (07:58)
--- NOTE | 2022-02-04 09:36 | Psychiatric Progress Note ---
Date of Service February 04, 2022 Impression / Recommendations Impression 26 yo female, denied substance use hx, attempted OD on fentanyl patches few months after loss of from fentanyl OD (presumably tainted cocaine in [place]). Intermittent elevations in BP/P coinciding with stress around aunt/uncle's demand for guardianship of son. 02/04/22: mood improving a bit, slow progress now with some increased expression of emotion/slight brightening of affect at times, continues to have very significant stressors including custody hearing and homelessness. Tolerating Wellbutrin. Remains at high acute risk given multiple ongoing and intensifying psychosocial stressors. (1) Depression: (2) Complicated bereavement: (3) Suicide attempt by fentanyl overdose: Plan 02/04/22: Continue current medication and tx plan. 02/03/22: continue current medication and tx plan. Patient exploring housing options. 02/02/22: Titrate Wellbutrin XL to 150 mg. 02/01/22: risks/benefits/alternatives reviewed re: antihypertensives that could help with anxiety/tachy. Agreed to a trial of low dose propranolol. Continue current dose of Wellbutrin for now. 01/31/22: Risks/benefits/alternatives reviewed re: antidepressants for the treatment of depression and/or anxiety. Discussion included but was not limited to FDA warnings re: suicidality in adolescents and young adults. The patient agreed to a trial of Wellbutrin SR 100 mg po qam starting today and monitor for jitteriness given co-morbid anxiety. 01/30/22: 1 time dose of clonidine and initiate detox protocol with clonidine and lomotil. Zofran prn, deferring start of SSRI as not eating consistently and N, pantoprazole 40 mg daily as suspect mild gastritis following ingestion of patches. 01/29/22: The patient was admitted to the [facility] ([facility]) on q15 min checks (behavioral with suicide precautions) for safety. The patient will participate in group, recreational, and milieu therapies and will be offered additional individual and family sessions as clinically appropriate. Risks/benefits/alternatives reviewed re: antidepressants and sleep agents. The patient agreed to Vistaril standing order on trial basis and is willing to discuss antidepressant options more in am as remains overwhelmed. She denies withdrawal symptoms. Suicide Risk Level Suicide Risk Level: Moderate (q15 min suicide checks) Risk Factors Assessment : Yes Do You Have Access To A Gun?: No Mental Health Diagnoses: Yes Substance Use Disorders: No Previous Psychiatric Hospitalization: Yes Protective Factors Assessment Responsible for Young Children: Yes Interval History Identifying Information BELLA LOVE is a 26-year-old F who currently lives in [place], has a history psychiatric admissions as a teenager, and was admitted on 01/28/22 14:11 on a 201 voluntary commitment on discharge from the medical floor following an intentional OD. Chief Complaint "I feel some hope today". Review of Systems Sleep Information Total Hours of Sleep: 8 Meal Information Percent Meal Consumed - Breakfast: 100 Percent Meal Consumed - Lunch: 50 Percent Meal Consumed - Dinner: 100 Nutrition Comment: Poor appetite; meal saved per patient request Subjective Subjective Patient was seen & assessed and interval progress reviewed with treatment team nursing and social work. Yesterday served with paperwork from court that her son's custody has been moved to family friends emergently. She spent a long time yesterday with her new outpatient case liner to make plans regarding how she can get custody back. Last evening showing more affect with some smiles appropriately, going to groups, and working on resources for housing. Got Vistaril prn last night and slept well. Up this morning and showered. States she is starting to finally feel "some hope". Denies side effects from Wellbutrin. Physical Exam Psychiatric Orientation: alert and oriented x 3 Apperance: appropriately dressed and appropriately groomed Eye Contact: good eye contact Motor Behavior: no abnormal motor movements Speech: normal rate/rhythm/volume of speech Affect: + depressed affect (but a few smiles) Mood: + depressed mood Thought Process: goal directed thought process Thought Content: reality based without delusions Suicidal Thoughts: denies suicidal thoughts Homicidal Thoughts: denies homicidal thoughts Hallucinations: no auditory hallucinations and no visual hallucinations Cognition: attention grossly intact and language grossly intact Estimated Intelligence: consistent with education level Insight: + fair insight Judgement: + fair judgement Vital Signs (Past 24 Hours) Last Vital Signs Temp 36.7 C 02/04/22 06:35 Pulse 89 02/04/22 06:35 Resp 18 02/04/22 06:35 BP 142/79 H 02/04/22 06:35 Pulse Ox 97 01/31/22 18:57 O2 Del Method 01/31/22 18:57 Results & Data ([facility]) Current Inpatient Medications Current Inpatient Medications: Current Inpatient Medications Acetaminophen (Acetaminophen 325 Mg Tab) 650 mg PO Q4H PRN PRN Reason: Headache or Minor Fever Stop: 02/27/22 13:20 Last Admin: 01/29/22 02:40 Dose: 650 mg Al Hydrox/Mg Hydrox/Simethicone (Aluminum/Magnesium Susp 30 Ml Udc) 30 ml PO Q4H PRN PRN Reason: GI Upset Stop: 02/27/22 13:20 Bismuth Subsalicylate (Bismuth Subsalicylate Liqd 236 Ml) 15 ml PO PRN PRN PRN Reason: Loose Stool Stop: 02/27/22 13:20 Bupropion HCl (Bupropion Xl 150 Mg Tabcr) 150 mg PO QAM CATHRYN Stop: 03/05/22 08:59 Last Admin: 02/04/22 07:57 Dose: 150 mg Clonidine HCl (Clonidine Hcl 0.1 Mg Tab) 0.1 mg PO Q4 PRN PRN Reason: Blood Pressure - High Stop: 03/02/22 14:26 Last Admin: 02/01/22 20:33 Dose: 0.1 mg Diphenoxylate HCl/Atropine (Diphenoxylate/Atropine 2.5/0.025mg Tab) 1 tab PO Q4H PRN PRN Reason: Abdominal Cramping/Diarrhea Stop: 03/01/22 09:34 Hydroxyzine HCl (Hydroxyzine Hcl 25 Mg Tab) 50 mg PO HSZ PRN PRN Reason: Insomnia Stop: 02/27/22 13:20 Hydroxyzine HCl (Hydroxyzine Hcl 25 Mg Tab) 25 mg PO Q4H PRN PRN Reason: Anxiety Stop: 02/27/22 13:20 Hydroxyzine HCl (Hydroxyzine Hcl 25 Mg Tab) 50 mg PO HS CATHRYN Stop: 03/01/22 21:59 Last Admin: 02/03/22 21:57 Dose: 50 mg Magnesium Hydroxide (Magnesium Hydroxide Susp 30 Ml Udc) 30 ml PO DAILY PRN PRN Reason: Constipation Stop: 02/27/22 13:20 Ondansetron HCl (Ondansetron 4 Mg Od Tab) 4 mg PO Q6H PRN PRN Reason: Nausea Stop: 03/01/22 09:35 Pantoprazole Sodium (Pantoprazole 40 Mg Tab) 40 mg PO QAM CATHRYN Stop: 03/01/22 09:44 Last Admin: 02/04/22 07:58 Dose: 40 mg Propranolol HCl (Propranolol Hcl 10 Mg Tab) 10 mg PO QAM CATHRYN Stop: 03/03/22 14:29 Last Admin: 02/04/22 07:57 Dose: 10 mg Sodium Chloride (Sodium Chloride 0.65% Na Soln 45 Ml ([place])) 1 - 2 sprays NA PRN PRN PRN Reason: Nasal Dryness/Congestion Stop: 02/27/22 13:20 Mental Health & Subst Abuse Tx Psychiatrist Name of Psychiatrist: [facility] - Dr. Moni Olmedo Psychiatrist's Date of Appointment with Psychiatrist: 02/13/22 Time of Appointment with Psychiatrist: 1:30 PM Psychiatric App[facility]ment Comment: [address] [place] [address]. Please provide updated insurance info Therapist Name of Therapist: [facility] - on waitlist Therapist's Therapy Appointment Comment: [address] [place] [address] Software Configuration Manager Name of Software Configuration Manager: [employer] Phone Number for Software Configuration Manager: [phone] Case Management Appointment Comment: Follow up for CM assignment. Post Discharge Appointments Primary Care Physician Name Of Family Doctor: [facility] - [facility]DNEE [facility] Primary Care Date of Appointment with PCP: 02/20/22 Time of Appointment with PCP: 10:45 AM Provider App[facility]ment Comment[facility] [address] [place] [address]
[2022-02-04] MEDS: ACETAMINOPHEN 325 MG TAB PO PRN (20:41)
[2022-02-04] MEDS: cloNIDine HCL 0.1 MG TAB PO PRN (21:58)
[2022-02-04] MEDS: hydrOXYzine HCl 25 MG TAB PO SCH (22:35)
[2022-02-05] MEDS: buPROPion XL 150 MG TABCR PO SCH (08:06)
[2022-02-05] MEDS: PROPRANOLOL HCL 10 MG TAB PO SCH (08:07)
[2022-02-05] MEDS: PANTOprazole 40 MG TAB PO SCH (08:07)
--- NOTE | 2022-02-05 09:21 | Psychiatric Progress Note ---
Date of Service February 05, 2022 Impression / Recommendations Impression 26 yo female, denied substance use hx, attempted OD on fentanyl patches few months after loss of from fentanyl OD (presumably tainted cocaine in [place]). Intermittent elevations in BP/P coinciding with stress around aunt/uncle's demand for guardianship of son. 02/05/22: still with depression related to psychosocial stressors but lessening, continues to have significant psychosocial stressors including homelessness (1) Depression: (2) Complicated bereavement: (3) Suicide attempt by fentanyl overdose: Plan 02/05/22: Continue current medication and tx plan. 02/04/22: Continue current medication and tx plan. 02/03/22: continue current medication and tx plan. Patient exploring housing options. 02/02/22: Titrate Wellbutrin XL to 150 mg. 02/01/22: risks/benefits/alternatives reviewed re: antihypertensives that could help with anxiety/tachy. Agreed to a trial of low dose propranolol. Continue current dose of Wellbutrin for now. 01/31/22: Risks/benefits/alternatives reviewed re: antidepressants for the treatment of depression and/or anxiety. Discussion included but was not limited to FDA warnings re: suicidality in adolescents and young adults. The patient agreed to a trial of Wellbutrin SR 100 mg po qam starting today and monitor for jitteriness given co-morbid anxiety. 01/30/22: 1 time dose of clonidine and initiate detox protocol with clonidine and lomotil. Zofran prn, deferring start of SSRI as not eating consistently and N, pantoprazole 40 mg daily as suspect mild gastritis following ingestion of patches. 01/29/22: The patient was admitted to the [facility] ([facility] mental health unit) on q15 min checks (behavioral with suicide precautions) for safety. The patient will participate in group, recreational, and milieu therapies and will be offered additional individual and family sessions as clinically appropriate. Risks/benefits/alternatives reviewed re: antidepressants and sleep agents. The patient agreed to Vistaril standing order on trial basis and is willing to discuss antidepressant options more in am as remains overwhelmed. She denies withdrawal symptoms. Suicide Risk Level Suicide Risk Level: Moderate (q15 min suicide checks) Risk Factors Assessment : Yes Do You Have Access To A Gun?: No Mental Health Diagnoses: Yes Substance Use Disorders: No Previous Psychiatric Hospitalization: Yes Protective Factors Assessment Responsible for Young Children: Yes Interval History Identifying Information BELLA LOVE is a 26-year-old F who currently lives in [place], has a history psychiatric admissions as a teenager, and was admitted on 01/28/22 14:11 on a 201 voluntary commitment on discharge from the medical floor following an intentional OD. Chief Complaint "I'm a little better today". Review of Systems Sleep Information Total Hours of Sleep: 6.5 Meal Information Percent Meal Consumed - Breakfast: 100 Percent Meal Consumed - Lunch: 50 Percent Meal Consumed - Dinner: 20 Nutrition Comment: Poor appetite; meal saved per patient request Subjective Subjective Patient was seen & assessed and interval progress reviewed with treatment team n zechariah and social work. Had a difficult call with her uncle on the phone last night and was upset after that with low mood and frustration and her blood pressure was elevated. She had a clonidine prn with good effect. Looked upset this morning with tearfulness during nursing checks. This afternoon reports some improvement in mood after attending groups. Denies medication side effects. Still having a low appetite but she feels it's improving a little bit. Physical Exam Psychiatric Orientation: alert and oriented x 3 Apperance: appropriately dressed and appropriately groomed Eye Contact: good eye contact Motor Behavior: no abnormal motor movements Speech: normal rate/rhythm/volume of speech Affect: + depressed affect (but a few smiles) Mood: + depressed mood Thought Process: goal directed thought process Thought Content: reality based without delusions Suicidal Thoughts: denies suicidal thoughts, denies suicidal plan and denies suicidal intent Homicidal Thoughts: denies homicidal thoughts Hallucinations: no auditory hallucinations and no visual hallucinations Cognition: attention grossly intact and language grossly intact Estimated Intelligence: consistent with education level Insight: + fair insight Judgement: + fair judgement Vital Signs (Past 24 Hours) Last Vital Signs Temp 36.6 C 02/05/22 06:37 Pulse 86 02/05/22 06:37 Resp 18 02/05/22 06:37 BP 130/86 02/05/22 06:37 Pulse Ox 97 01/31/22 18:57 O2 Del Method 01/31/22 18:57 Results & Data (U) Current Inpatient Medications Current Inpatient Medications: Current Inpatient Medications Acetaminophen (Acetaminophen 325 Mg Tab) 650 mg PO Q4H PRN PRN Reason: Headache or Minor Fever Stop: 02/27/22 13:20 Last Admin: 02/04/22 20:41 Dose: 650 mg Al Hydrox/Mg Hydrox/Simethicone (Aluminum/Magnesium Susp 30 Ml Udc) 30 ml PO Q4H PRN PRN Reason: GI Upset Stop: 02/27/22 13:20 Bismuth Subsalicylate (Bismuth Subsalicylate Liqd 236 Ml) 15 ml PO PRN PRN PRN Reason: Loose Stool Stop: 02/27/22 13:20 Bupropion HCl (Bupropion Xl 150 Mg Tabcr) 150 mg PO QAM CATHRYN Stop: 03/05/22 08:59 Last Admin: 02/05/22 08:06 Dose: 150 mg Clonidine HCl (Clonidine Hcl 0.1 Mg Tab) 0.1 mg PO Q4 PRN PRN Reason: Blood Pressure - High Stop: 03/02/22 14:26 Last Admin: 02/04/22 21:58 Dose: 0.1 mg Diphenoxylate HCl/Atropine (Diphenoxylate/Atropine 2.5/0.025mg Tab) 1 tab PO Q4H PRN PRN Reason: Abdominal Cramping/Diarrhea Stop: 03/01/22 09:34 Hydroxyzine HCl (Hydroxyzine Hcl 25 Mg Tab) 50 mg PO HSZ PRN PRN Reason: Insomnia Stop: 02/27/22 13:20 Hydroxyzine HCl (Hydroxyzine Hcl 25 Mg Tab) 25 mg PO Q4H PRN PRN Reason: Anxiety Stop: 02/27/22 13:20 Hydroxyzine HCl (Hydroxyzine Hcl 25 Mg Tab) 50 mg PO HS CATHRYN Stop: 03/01/22 21:59 Last Admin: 02/04/22 22:35 Dose: 50 mg Magnesium Hydroxide (Magnesium Hydroxide Susp 30 Ml Udc) 30 ml PO DAILY PRN PRN Reason: Constipation Stop: 02/27/22 13:20 Ondansetron HCl (Ondansetron 4 Mg Od Tab) 4 mg PO Q6H PRN PRN Reason: Nausea Stop: 03/01/22 09:35 Pantoprazole Sodium (Pantoprazole 40 Mg Tab) 40 mg PO QAM CATHRYN Stop: 03/01/22 09:44 Last Admin: 02/05/22 08:07 Dose: 40 mg Propranolol HCl (Propranolol Hcl 10 Mg Tab) 10 mg PO QAM CATHRYN Stop: 03/03/22 14:29 Last Admin: 02/05/22 08:07 Dose: 10 mg Sodium Chloride (Sodium Chloride 0.65% Na Soln 45 Ml ([place])) 1 - 2 sprays NA PRN PRN PRN Reason: Nasal Dryness/Congestion Stop: 02/27/22 13:20 Mental Health & Subst Abuse Tx Psychiatrist Name of Psychiatrist: [facility] - Dr. Moni Olmedo Psychiatrist's Date of Appointment with Psychiatrist: 02/13/22 Time of Appointment with Psychiatrist: 1:30 PM Psychiatric Appointment Comment[facility] [address] [facility] [place] [address]. Please provide updated insurance info Therapist Name of Therapist: [facility] - on waitlist Therapist's Therapy Appointment Comment: [address] [facility] [place] [address] Amusement Or Recreation Card Checker Name of Amusement Or Recreation Card Checker: [employer] Phone Number for Amusement Or Recreation Card Checker: [phone] Case Management Appointment Comment: Follow up for CM assignment. Post Discharge Appointments Primary Care Physician Name Of Family Doctor: [facility] - SYDNEE Hitchcock Primary Care Date of Appointment with PCP: 02/20/22 Time of Appointment with PCP: 10:45 AM Provider App[facility]ment [facility] [address] [facility] [place] [address]
[2022-02-05] MEDS: hydrOXYzine HCl 25 MG TAB PO SCH (21:54)
[2022-02-05] MEDS: cloNIDine HCL 0.1 MG TAB PO PRN (21:54)
[2022-02-06] MEDS: PANTOprazole 40 MG TAB PO SCH (08:43)
[2022-02-06] MEDS: PROPRANOLOL HCL 10 MG TAB PO SCH (08:43)
[2022-02-06] MEDS: buPROPion XL 150 MG TABCR PO SCH (08:43)
--- NOTE | 2022-02-06 16:51 | Psychiatric Progress Note ---
Date of Service February 06, 2022 Impression / Recommendations Impression 26 yo female, denied substance use hx, attempted OD on fentanyl patches few months after loss of from fentanyl OD (presumably tainted cocaine in [place]). Intermittent elevations in BP/P coinciding with stress around aunt/uncle's demand for guardianship of son. 02/06/22: still with depression related to psychosocial stressors including homelessness which remains most significant barrier to safe discharge (1) Depression: (2) Complicated bereavement: (3) Suicide attempt by fentanyl overdose: Plan 02/06/22: Continue current medications and tx plan. Focusing on modifiable psychosocial risk factors to reduce acute and chronic risk of self-harm. 02/05/22: Continue current medication and tx plan. 02/04/22: Continue current medication and tx plan. 02/03/22: continue current medication and tx plan. Patient exploring housing options. 02/02/22: Titrate Wellbutrin XL to 150 mg. 02/01/22: risks/benefits/alternatives reviewed re: antihypertensives that could help with anxiety/tachy. Agreed to a trial of low dose propranolol. Continue current dose of Wellbutrin for now. 01/31/22: Risks/benefits/alternatives reviewed re: antidepressants for the treatment of depression and/or anxiety. Discussion included but was not limited to FDA warnings re: suicidality in adolescents and young adults. The patient agreed to a trial of Wellbutrin SR 100 mg po qam starting today and monitor for jitteriness given co-morbid anxiety. 01/30/22: 1 time dose of clonidine and initiate detox protocol with clonidine and lomotil. Zofran prn, deferring start of SSRI as not eating consistently and N, pantoprazole 40 mg daily as suspect mild gastritis following ingestion of patches. 01/29/22: The patient was admitted to the [facility] ([facility]) on q15 min checks (behavioral with suicide precautions) for safety. The patient will participate in group, recreational, and milieu therapies and will be offered additional individual and family sessions as clinically appropriate. Risks/benefits/alternatives reviewed re: antidepressants and sleep agents. The patient agreed to Vistaril standing order on trial basis and is willing to discuss antidepressant options more in am as remains overwhelmed. She denies withdrawal symptoms. Suicide Risk Level Suicide Risk Level: Moderate (q15 min suicide checks) Risk Factors Assessment : Yes Do You Have Access To A Gun?: No Mental Health Diagnoses: Yes Substance Use Disorders: No Previous Psychiatric Hospitalization: Yes Protective Factors Assessment Responsible for Young Children: Yes Interval History Identifying Information BELLA LOVE is a 26-year-old F who currently lives in [place], has a history psychiatric admissions as a teenager, and was admitted on 01/28/22 14:11 on a 201 voluntary commitment on discharge from the medical floor following an intentional OD. Chief Complaint "I was nervous for the meeting but it didn't happen". Review of Systems Sleep Information Total Hours of Sleep: 6 Meal Information Percent Meal Consumed - Breakfast: 100 Percent Meal Consumed - Lunch: 100 Percent Meal Consumed - Dinner: 50 Nutrition Comment: Poor appetite; meal saved per patient request Subjective Subjective Patient was seen & assessed and interval progress reviewed with treatment team nursing and social work. Was supposed to have housing transitions meeting today but formerly [facility] community representative did not arrive for this. Housing remains significant barrier to safe discharge as she no longer has SI but feels it would likely em erge in outpatient setting without housing as homelessness would be "a huge stressor". No medication side effects. Physical Exam Psychiatric Orientation: alert and oriented x 3 Apperance: appropriately dressed and appropriately groomed Eye Contact: good eye contact Motor Behavior: no abnormal motor movements Speech: normal rate/rhythm/volume of speech Affect: + depressed affect (but a few smiles) Mood: + depressed mood Thought Process: goal directed thought process Thought Content: reality based without delusions Suicidal Thoughts: denies suicidal thoughts, denies suicidal plan and denies suicidal intent Homicidal Thoughts: denies homicidal thoughts Hallucinations: no auditory hallucinations and no visual hallucinations Cognition: attention grossly intact and language grossly intact Estimated Intelligence: consistent with education level Insight: + limited insight Judgement: + fair judgement Vital Signs (Past 24 Hours) Last Vital Signs Temp 36.7 C 02/06/22 06:44 Pulse 86 02/06/22 06:45 Resp 16 02/06/22 06:44 BP 125/86 02/06/22 06:45 Pulse Ox 97 01/31/22 18:57 O2 Del Method 01/31/22 18:57 Results & Data ([facility]) Current Inpatient Medications Current Inpatient Medications: Current Inpatient Medications Acetaminophen (Acetaminophen 325 Mg Tab) 650 mg PO Q4H PRN PRN Reason: Headache or Minor Fever Stop: 11/07/22 13:20 Last Admin: 02/04/22 20:41 Dose: 650 mg Al Hydrox/Mg Hydrox/Simethicone (Aluminum/Magnesium Susp 30 Ml Udc) 30 ml PO Q4H PRN PRN Reason: GI Upset Stop: 02/27/22 13:20 Bismuth Subsalicylate (Bismuth Subsalicylate Liqd 236 Ml) 15 ml PO PRN PRN PRN Reason: Loose Stool Stop: 02/27/22 13:20 Bupropion HCl (Bupropion Xl 150 Mg Tabcr) 150 mg PO QAM CATHRYN Stop: 03/05/22 08:59 Last Admin: 02/06/22 08:43 Dose: 150 mg Clonidine HCl (Clonidine Hcl 0.1 Mg Tab) 0.1 mg PO Q4 PRN PRN Reason: Blood Pressure - High Stop: 03/02/22 14:26 Last Admin: 02/05/22 21:54 Dose: 0.1 mg Diphenoxylate HCl/Atropine (Diphenoxylate/Atropine 2.5/0.025mg Tab) 1 tab PO Q4H PRN PRN Reason: Abdominal Cramping/Diarrhea Stop: 03/01/22 09:34 Hydroxyzine HCl (Hydroxyzine Hcl 25 Mg Tab) 50 mg PO HSZ PRN PRN Reason: Insomnia Stop: 02/27/22 13:20 Hydroxyzine HCl (Hydroxyzine Hcl 25 Mg Tab) 25 mg PO Q4H PRN PRN Reason: Anxiety Stop: 02/27/22 13:20 Hydroxyzine HCl (Hydroxyzine Hcl 25 Mg Tab) 50 mg PO HS CATHRYN Stop: 03/01/22 21:59 Last Admin: 02/05/22 21:54 Dose: 50 mg Magnesium Hydroxide (Magnesium Hydroxide Susp 30 Ml Udc) 30 ml PO DAILY PRN PRN Reason: Constipation Stop: 02/27/22 13:20 Ondansetron HCl (Ondansetron 4 Mg Od Tab) 4 mg PO Q6H PRN PRN Reason: Nausea Stop: 03/01/22 09:35 Pantoprazole Sodium (Pantoprazole 40 Mg Tab) 40 mg PO QAM CATHRYN Stop: 03/01/22 09:44 Last Admin: 02/06/22 08:43 Dose: 40 mg Propranolol HCl (Propranolol Hcl 10 Mg Tab) 10 mg PO QAM CATHRYN Stop: 03/03/22 14:29 Last Admin: 02/06/22 08:43 Dose: 10 mg Sodium Chloride (Sodium Chloride 0.65% Na Soln 45 Ml ([place])) 1 - 2 sprays NA PRN PRN PRN Reason: Nasal Dryness/Congestion Stop: 02/27/22 13:20 Mental Health & Subst Abuse Tx Psychiatrist Name of Psychiatrist: [facility] - Dr. Moni Olmedo Psychiatrist's Date of Appointment with Psychiatrist: 02/13/22 Time of Appointment with Psychiatrist: 1:30 PM Psychiatric [facility]ment [facility] [address] [facility] [place] [address]. Please provide updated insurance info Therapist Name of Therapist: [facility] - on waitlist Therapist's Therapy Appointment Comment: [address] [facility] [place] [address] Traffic Operator Name of Traffic Operator: [employer] Phone Number for Traffic Operator: [phone] Case Management Appointment Comment: Follow up for CM assignment. Post Discharge Appointments Primary Care Physician Name Of Family Doctor: [facility] - SYDNEE Hitchcock Primary Care Date of Appointment with PCP: 02/20/22 Time of Appointment with PCP: 10:45 AM Provider App[facility]ment [facility] [address] [facility] [place] [address]
[2022-02-06] MEDS: hydrOXYzine HCl 25 MG TAB PO SCH (22:14)
[2022-02-07] MEDS: PANTOprazole 40 MG TAB PO SCH (08:21)
[2022-02-07] MEDS: PROPRANOLOL HCL 10 MG TAB PO SCH (08:21)
[2022-02-07] MEDS: buPROPion XL 150 MG TABCR PO SCH (08:21)
[2022-02-07] MEDS ORDERED: PROPRANOLOL HCL 10 MG TAB PO PRN (12:30)
--- NOTE | 2022-02-07 16:10 | Psychiatric Progress Note ---
Date of Service February 07, 2022 Impression / Recommendations Impression 26 yo female, denied substance use hx, attempted OD on fentanyl patches few months after loss of from fentanyl OD (presumably tainted cocaine in [place]). Intermittent elevations in BP/P coinciding with stress around aunt/uncle's demand for guardianship of son. 02/07/22: still with depression and anxiety related to psychosocial stressors including homelessness which remains most significant barrier to safe discharge but is starting to show more affect consistently with smiles with peers and feeling more hopeful at times, signs of ongoing gradual progress (1) Depression: (2) Complicated bereavement: (3) Suicide attempt by fentanyl overdose: Plan 02/07/22: Switch propranolol 10mg BID prn for anxiety and start lisinopril 5mg qd for HTN which she consents to. Reviewed side effects including but not limited to: cough, low BP, electrolyte changes. 02/06/22: Continue current medications and tx plan. Focusing on modifiable psychosocial risk factors to reduce acute and chronic risk of self-harm. 02/05/22: Continue current medication and tx plan. 02/04/22: Continue current medication and tx plan. 02/03/22: continue current medication and tx plan. Patient exploring housing options. 02/02/22: Titrate Wellbutrin XL to 150 mg. 02/01/22: risks/benefits/alternatives reviewed re: antihypertensives that could help with anxiety/tachy. Agreed to a trial of low dose propranolol. Continue current dose of Wellbutrin for now. 01/31/22: Risks/benefits/alternatives reviewed re: antidepressants for the treatment of depression and/or anxiety. Discussion included but was not limited to FDA warnings re: suicidality in adolescents and young adults. The patient agreed to a trial of Wellbutrin SR 100 mg po qam starting today and monitor for jitteriness given co-morbid anxiety. 01/30/22: 1 time dose of clonidine and initiate detox protocol with clonidine and lomotil. Zofran prn, deferring start of SSRI as not eating consistently and N, pantoprazole 40 mg daily as suspect mild gastritis following ingestion of patches. 01/29/22: The patient was admitted to [facility] on q15 min checks (behavioral with suicide precautions) for safety. The patient will participate in group, recreational, and milieu therapies and will be offered additional individual and family sessions as clinically appropriate. Risks/benefits/alternatives reviewed re: antidepressants and sleep agents. The patient agreed to Vistaril standing order on trial basis and is willing to discuss antidepressant options more in am as remains overwhelmed. She denies withdrawal symptoms. Suicide Risk Level Suicide Risk Level: Moderate (q15 min suicide checks) Risk Factors Assessment : Yes Do You Have Access To A Gun?: No Mental Health Diagnoses: Yes Substance Use Disorders: No Previous Psychiatric Hospitalization: Yes Protective Factors Assessment Responsible for Young Children: Yes Interval History Identifying Information BELLA LOVE is a 26-year-old F who currently lives in [place], has a history psychiatric admissions as a teenager, and was admitted on 01/28/22 14:11 on a 201 voluntary commitment on discharge from the medical floor following an intentional OD. Chief Complaint "I'm not sure, a little more hopeful I think ". Review of Systems Sleep Information Total Hours of Sleep: 6.5 Meal Information Percent Meal Consumed - Breakfast: 50 Percent Meal Consumed - Lunch: 50 Percent Meal Consumed - Dinner: 50 Nutrition Comment: Poor appetite; meal saved per patient request Subjective Subjective Patient was seen & assessed and interval progress reviewed with treatment team nursing and social work. Met with housing transitions this morning. Feels like her mood is becoming a bit more hopeful. Displaying a bit more emotional expression, smiling at times with peers. Remains anxious at times. BP has been elevated, discussed adding lisonopril which she consents to. No medication side effects, she finds the medication helpful. Physical Exam Psychiatric Orientation: alert and oriented x 3 Apperance: appropriately dressed and appropriately groomed Eye Contact: + fair eye contact Motor Behavior: no abnormal motor movements Speech: normal rate/rhythm/volume of speech Affect: + constricted affect (some smiles ) Mood: + depressed mood and + anxious mood Thought Process: goal directed thought process Thought Content: reality based without delusions Suicidal Thoughts: denies suicidal thoughts Homicidal Thoughts: denies homicidal thoughts Hallucinations: no auditory hallucinations and no visual hallucinations Cognition: attention grossly intact and language grossly intact Estimated Intelligence: consistent with education level Insight: + fair insight Judgement: + fair judgement Vital Signs (Past 24 Hours) Last Vital Signs Temp 36.8 C 02/07/22 06:30 Pulse 85 10/18/22 06:30 Resp 16 02/07/22 06:30 BP 137/85 02/07/22 06:30 Pulse Ox 97 01/31/22 18:57 O2 Del Method 01/31/22 18:57 Results & Data ([facility]) Current Inpatient Medications Current Inpatient Medications: Current Inpatient Medications Acetaminophen (Acetaminophen 325 Mg Tab) 650 mg PO Q4H PRN PRN Reason: Headache or Minor Fever Stop: 02/27/22 13:20 Last Admin: 02/04/22 20:41 Dose: 650 mg Al Hydrox/Mg Hydrox/Simethicone (Aluminum/Magnesium Susp 30 Ml Udc) 30 ml PO Q4H PRN PRN Reason: GI Upset Stop: 02/27/22 13:20 Bismuth Subsalicylate (Bismuth Subsalicylate Liqd 236 Ml) 15 ml PO PRN PRN PRN Reason: Loose Stool Stop: 02/27/22 13:20 Bupropion HCl (Bupropion Xl 150 Mg Tabcr) 150 mg PO QAM [facility] Stop: 03/05/22 08:59 Last Admin: 02/07/22 08:21 Dose: 150 mg Diphenoxylate HCl/Atropine (Diphenoxylate/Atropine 2.5/0.025mg Tab) 1 tab PO Q4H PRN PRN Reason: Abdominal Cramping/Diarrhea Stop: 03/01/22 09:34 Hydroxyzine HCl (Hydroxyzine Hcl 25 Mg Tab) 50 mg PO HSZ PRN PRN Reason: Insomnia Stop: 02/27/22 13:20 Hydroxyzine HCl (Hydroxyzine Hcl 25 Mg Tab) 25 mg PO Q4H PRN PRN Reason: Anxiety Stop: 02/27/22 13:20 Hydroxyzine HCl (Hydroxyzine Hcl 25 Mg Tab) 50 mg PO HS CATHRYN Stop: 03/01/22 21:59 Last Admin: 02/06/22 22:14 Dose: 50 mg Lisinopril (Lisinopril 5 Mg Tab) 5 mg PO QAM CATHRYN Stop: 03/10/22 08:59 Magnesium Hydroxide (Magnesium Hydroxide Susp 30 Ml Udc) 30 ml PO DAILY PRN PRN Reason: Constipation Stop: 02/27/22 13:20 Ondansetron HCl (Ondansetron 4 Mg Od Tab) 4 mg PO Q6H PRN PRN Reason: Nausea Stop: 03/01/22 09:35 Pantoprazole Sodium (Pantoprazole 40 Mg Tab) 40 mg PO QAM CATHRYN Stop: 03/01/22 09:44 Last Admin: 02/07/22 08:21 Dose: 40 mg Propranolol HCl (Propranolol Hcl 10 Mg Tab) 10 mg PO BID PRN PRN Reason: Anxiety Stop: 03/09/22 20:59 Sodium Chloride (Sodium Chloride 0.65% Na Soln 45 Ml ([place])) 1 - 2 sprays NA PRN PRN PRN Reason: Nasal Dryness/Congestion Stop: 02/27/22 13:20 Mental Health & Subst Abuse Tx Psychiatrist Name of Psychiatrist: [facility] - Dr. Moni Olmedo Psychiatrist's Date of Appointment with Psychiatrist: 02/13/22 Time of Appointment with Psychiatrist: 1:30 PM Psychiatric Appointment Comment: [address] [place] [address]. Please provide updated insurance info Therapist Name of Therapist: [facility] - on waitlist Therapist's Therapy Appointment Comment: [address] [place] [address] Finisher Tailor Apprentice Name of Finisher Tailor Apprentice: [employer] Phone Number for Finisher Tailor Apprentice: [phone] Case Management Appointment Comment: Follow up for CM assignment. Post Discharge Appointments Primary Care Physician Name Of Family Doctor: [facility] - SYDNEE Hitchcock Primary Care Date of Appointment with PCP: 02/20/22 Time of Appointment with PCP: 10:45 AM Provider Appointment Comment: [address] [place] [facility] [place] [address]
[2022-02-07] MEDS: hydrOXYzine HCl 25 MG TAB PO SCH (23:09)
[2022-02-08] MEDS: lisinopril 5 MG TAB PO SCH (08:33)
[2022-02-08] MEDS: buPROPion XL 150 MG TABCR PO SCH (08:33)
[2022-02-08] MEDS: PANTOprazole 40 MG TAB PO SCH (08:33)
--- NOTE | 2022-02-08 08:45 | Psychiatric Progress Note ---
Date of Service February 08, 2022 Impression / Recommendations Impression 26 yo female, denied substance use hx, attempted OD on fentanyl patches few months after loss of from fentanyl OD (presumably tainted cocaine in [place]). Intermittent elevations in BP/P coinciding with stress around aunt/uncle's demand for guardianship of son. 02/08/22: still with depression and anxiety related to psychosocial stressors including homelessness which remains most significant barrier to safe discharge, gradual progress, outpt CM helping with housing barrier, tolerating medications, appetite remains poor at times (1) Depression: (2) Complicated bereavement: (3) Suicide attempt by fentanyl overdose: Plan 02/08/22: Continue current medication and tx plan. 02/07/22: Switch propranolol 10mg BID prn for anxiety and start lisinopril 5mg qd for HTN which she consents to. Reviewed side effects including but not limited to: cough, low BP, electrolyte changes. 02/06/22: Continue current medications and tx plan. Focusing on modifiable psychosocial risk factors to reduce acute and chronic risk of self-harm. 02/05/22: Continue current medication and tx plan. 02/04/22: Continue current medication and tx plan. 02/03/22: continue current medication and tx plan. Patient exploring housing options. 02/02/22: Titrate Wellbutrin XL to 150 mg. 02/01/22: risks/benefits/alternatives reviewed re: antihypertensives that could help with anxiety/tachy. Agreed to a trial of low dose propranolol. Continue current dose of Wellbutrin for now. 01/31/22: Risks/benefits/alternatives reviewed re: antidepressants for the treatment of depression and/or anxiety. Discussion included but was not limited to FDA warnings re: suicidality in adolescents and young adults. The patient agreed to a trial of Wellbutrin SR 100 mg po qam starting today and monitor for jitteriness given co-morbid anxiety. 01/30/22: 1 time dose of clonidine and initiate detox protocol with clonidine and lomotil. Zofran prn, deferring start of SSRI as not eating consistently and N, pantoprazole 40 mg daily as suspect mild gastritis following ingestion of patches. 01/29/22: [facility] on q15 min checks (behavioral with suicide precautions) for safety. The patient will participate in group, recreational, and milieu therapies and will be offered additional individual and family sessions as clinically appropriate. Risks/benefits/alternatives reviewed re: antidepressants and sleep agents. The patient agreed to Vistaril standing order on trial basis and is willing to discuss antidepressant options more in am as remains overwhelmed. She denies withdrawal symptoms. Suicide Risk Level Suicide Risk Level: Moderate (q15 min suicide checks) (serious suicide attempt prior to admission but gradual improvement in mood and denies current SI) Risk Factors Assessment : Yes Do You Have Access To A Gun?: No Mental Health Diagnoses: Yes Substance Use Disorders: No Previous Psychiatric Hospitalization: Yes Protective Factors Assessment Responsible for Young Children: Yes Interval History Identifying Information BELLA LOVE is a 26-year-old F who currently lives in [place], has a history psychiatric admissions as a teenager, and was admitted on 01/28/22 14:11 on a 201 voluntary commitment on discharge from the medical floor following an intentional OD. Chief Complaint "neutral". Review of Systems Sleep Information Total Hours of Sleep: 5.5 Meal Information Percent Meal Consumed - Breakfast: 50 Percent Meal Consumed - Lunch: 50 Percent Meal Consumed - Dinner: 50 Nutrition Comment: Poor appetite; meal saved per patient request Subjective Subjective Patient was seen & assessed and interval progress reviewed with treatment team nursing and social work. Mood varies, more neutral and anxious when thinking about housing challenges, improves when engaged with groups. Reading a book today, concentration improving from depression. Sleep is stable. Appetite still variable but eating more consistently. Physical Exam Psychiatric Orientation: alert and oriented x 3 Apperance: appropriately dressed and appropriately groomed Eye Contact: + fair eye contact Motor Behavior: no abnormal motor movements Speech: normal rate/rhythm/volume of speech Affect: + constricted affect (some smiles ) Mood: + depressed mood and + anxious mood Thought Process: goal directed thought process Thought Content: reality based without delusions Suicidal Thoughts: denies suicidal thoughts, denies suicidal plan and denies suicidal intent Homicidal Thoughts: denies homicidal thoughts Hallucinations: no auditory hallucinations and no visual hallucinations Cognition: attention grossly intact and language grossly intact Estimated Intelligence: consistent with education level Insight: + limited insight Judgement: + fair judgement Vital Signs (Past 24 Hours) Last Vital Signs Temp 36.6 C 02/08/22 06:49 Pulse 99 H 02/08/22 06:50 Resp 16 02/08/22 06:49 BP 129/85 02/08/22 06:50 Pulse Ox 97 01/31/22 18:57 O2 Del Method 01/31/22 18:57 Results & Data ([facility]) Current Inpatient Medications Current Inpatient Medications: Current Inpatient Medications Acetaminophen (Acetaminophen 325 Mg Tab) 650 mg PO Q4H PRN PRN Reason: Headache or Minor Fever Stop: 02/27/22 13:20 Last Admin: 02/04/22 20:41 Dose: 650 mg Al Hydrox/Mg Hydrox/Simethicone (Aluminum/Magnesium Susp 30 Ml Udc) 30 ml PO Q4H PRN PRN Reason: GI Upset Stop: 02/27/22 13:20 Bismuth Subsalicylate (Bismuth Subsalicylate Liqd 236 Ml) 15 ml PO PRN PRN PRN Reason: Loose Stool Stop: 02/27/22 13:20 Bupropion HCl (Bupropion Xl 150 Mg Tabcr) 150 mg PO QAM [facility] Stop: 03/05/22 08:59 Last Admin: 02/08/22 08:33 Dose: 150 mg Diphenoxylate HCl/Atropine (Diphenoxylate/Atropine 2.5/0.025mg Tab) 1 tab PO Q4H PRN PRN Reason: Abdominal Cramping/Diarrhea Stop: 03/01/22 09:34 Hydroxyzine HCl (Hydroxyzine Hcl 25 Mg Tab) 50 mg PO HSZ PRN PRN Reason: Insomnia Stop: 02/27/22 13:20 Hydroxyzine HCl (Hydroxyzine Hcl 25 Mg Tab) 25 mg PO Q4H PRN PRN Reason: Anxiety Stop: 02/27/22 13:20 Hydroxyzine HCl (Hydroxyzine Hcl 25 Mg Tab) 50 mg PO HS CATHRYN Stop: 03/01/22 21:59 Last Admin: 02/07/22 23:09 Dose: 50 mg Lisinopril (Lisinopril 5 Mg Tab) 5 mg PO QAM CATHR[facility] Stop: 03/10/22 08:59 Last Admin: 02/08/22 08:33 Dose: 5 mg Magnesium Hydroxide (Magnesium Hydroxide Susp 30 Ml Udc) 30 ml PO DAILY PRN PRN Reason: Constipation Stop: 02/27/22 13:20 Ondansetron HCl (Ondansetron 4 Mg Od Tab) 4 mg PO Q6H PRN PRN Reason: Nausea Stop: 03/01/22 09:35 Pantoprazole Sodium (Pantoprazole 40 Mg Tab) 40 mg PO QAM CATHRYN Stop: 03/01/22 09:44 Last Admin: 02/08/22 08:33 Dose: 40 mg Propranolol HCl (Propranolol Hcl 10 Mg Tab) 10 mg PO BID PRN PRN Reason: Anxiety Stop: 03/09/22 20:59 Sodium Chloride (Sodium Chloride 0.65% Na Soln 45 Ml ([place])) 1 - 2 sprays NA PRN PRN PRN Reason: Nasal Dryness/Congestion Stop: 02/27/22 13:20 Mental Health & Subst Abuse Tx Psychiatrist Name of Psychiatrist: [facility] - Dr. Moni Olmedo Psychiatrist's Date of Appointment with Psychiatrist: 02/13/22 Time of Appointment with Psychiatrist: 1:30 PM Psychiatric Appointment Comment: [address] [facility] [place] [place] [address]. Please provide updated insurance info Therapist Name of Therapist: [facility] - on waitlist Therapist's Therapy Appointment Comment: [address] [facility] [place] [place] [address] Nutrition Internship Name of Nutrition Internship: [employer] Phone Number for Nutrition Internship: [phone] Case Management Appointment Comment: Follow up for CM assignment. Post Discharge Appointments Primary Care Physician Name Of Family Doctor: [facility] - SYDNEE Hitchcock Primary Care Date of Appointment with PCP: 02/20/22 Time of Appointment with PCP: 10:45 AM Provider Appointment Comment: [address] [place] [address] Other #1: Name of Aftercare Appointment: [facility] Phone Number of Aftercare Appointment: Aftercare Appointment Comment: Call or email [email or web address] for grief support programs. #2: Name of Aftercare Appointment: [employer] [facility] (on waitlist) Phone Number of Aftercare Appointment: Aftercare Appointment Comment: They will contact you to discuss services and support/play groups. #3: Name of Aftercare Appointment: [facility] Phone Number of Aftercare Appointment: Aftercare Appointment Comment: See print out for program info; call if you would like to discuss services.
[2022-02-08] MEDS: hydrOXYzine HCl 25 MG TAB PO SCH (21:06)
[2022-02-09] MEDS: lisinopril 5 MG TAB PO SCH (08:31)
[2022-02-09] MEDS: PANTOprazole 40 MG TAB PO SCH (08:32)
[2022-02-09] MEDS: buPROPion XL 150 MG TABCR PO SCH (08:32)
--- NOTE | 2022-02-09 09:24 | Psychiatric Progress Note ---
Date of Service February 09, 2022 Impression / Recommendations Impression 26 yo female, denied substance use hx, attempted OD on fentanyl patches few months after loss of from fentanyl OD (presumably tainted cocaine in [place]). Intermittent elevations in BP/P coinciding with stress around aunt/uncle's demand for guardianship of son. 02/09/22: depression and anxiety, ongoing efforts to secure housing/jail which remains most significant barrier to safe discharge, gradual progress, outpt CM helping with housing barrier, tolerating medications, appetite remains poor at times (1) Depression: (2) Complicated bereavement: (3) Suicide attempt by fentanyl overdose: Plan 02/09/22: Cotninue current medication and tx plan. 02/08/22: Continue current medication and tx plan. 02/07/22: Switch propranolol 10mg BID prn for anxiety and start lisinopril 5mg qd for HTN which she consents to. Reviewed side effects including but not limited to: cough, low BP, electrolyte changes. 02/06/22: Continue current medications and tx plan. Focusing on modifiable psychosocial risk factors to reduce acute and chronic risk of self-harm. 02/05/22: Continue current medication and tx plan. 02/04/22: Continue current medication and tx plan. 02/03/22: continue current medication and tx plan. Patient exploring housing options. 02/02/22: Titrate Wellbutrin XL to 150 mg. 02/01/22: risks/benefits/alternatives reviewed re: antihypertensives that could help with anxiety/tachy. Agreed to a trial of low dose propranolol. Continue current dose of Wellbutrin for now. 01/31/22: Risks/benefits/alternatives reviewed re: antidepressants for the treatment of depression and/or anxiety. Discussion included but was not limited to FDA warnings re: suicidality in adolescents and young adults. The patient agreed to a trial of Wellbutrin SR 100 mg po qam starting today and monitor for jitteriness given co-morbid anxiety. 01/30/22: 1 time dose of clonidine and initiate detox protocol with clonidine and lomotil. Zofran prn, deferring start of SSRI as not eating consistently and N, pantoprazole 40 mg daily as suspect mild gastritis following ingestion of patches. 01/29/22: The patient was admitted to the [facility] (locked inpatient mental health unit) on q15 min checks (behavioral with suicide precautions) for safety. The patient will participate in group, recreational, and milieu therapies and will be offered additional individual and family sessions as clinically appropriate. Risks/benefits/alternatives reviewed re: antidepressants and sleep agents. The patient agreed to Vistaril standing order on trial basis and is willing to discuss antidepressant options more in am as remains overwhelmed. She denies withdrawal symptoms. Suicide Risk Level Suicide Risk Level: Moderate (q15 min suicide checks) (serious suicide attempt prior to admission but gradual improvement in mood and denies current SI) Risk Factors Assessment : Yes Do You Have Access To A Gun?: No Mental Health Diagnoses: Yes Substance Use Disorders: No Previous Psychiatric Hospitalization: Yes Protective Factors Assessment Responsible for Young Children: Yes Interval History Identifying Information BELLA LOVE is a 26-year-old F who currently lives in [place], has a history psychiatric admissions as a teenager, and was admitted on 01/28/22 14:11 on a 201 voluntary commitment on discharge from the medical floor following an intentional OD. Chief Complaint "I'm ok". Review of Systems Sleep Information Total Hours of Sleep: 6 Meal Information Percent Meal Consumed - Breakfast: 100 Percent Meal Consumed - Lunch: 20 Percent Meal Consumed - Dinner: 100 Nutrition Comment: Poor appetite; meal saved per patient request Subjective Subjective Patient was seen & assessed and interval progress reviewed with treatment team nursing and social work. Mood is stable. Denies SI. Reviewed challenges with housing and upcoming court date for custody concerns related to her son. Physical Exam Psychiatric Orientation: alert and oriented x 3 Apperance: appropriately dressed and appropriately groomed Eye Contact: good eye contact Motor Behavior: no abnormal motor movements Speech: normal rate/rhythm/volume of speech Affect: + constricted affect (some smiles ) Mood: + depressed mood and + anxious mood Thought Process: goal directed thought process Thought Content: reality based without delusions Suicidal Thoughts: denies suicidal thoughts Homicidal Thoughts: denies homicidal thoughts Hallucinations: no auditory hallucinations and no visual hallucinations Cognition: attention grossly intact and language grossly intact Estimated Intelligence: consistent with education level Insight: + fair insight Judgement: + fair judgement Vital Signs (Past 24 Hours) Last Vital Signs Temp 36.8 C 02/09/22 06:58 Pulse 87 02/09/22 06:58 Resp 18 02/09/22 06:58 BP 124/84 02/09/22 07:00 Pulse Ox 96 02/08/22 20:18 O2 Del Method 02/08/22 20:18 Results & Data ([facility]) Current Inpatient Medications Current Inpatient Medications: Current Inpatient Medications Acetaminophen (Acetaminophen 325 Mg Tab) 650 mg PO Q4H PRN PRN Reason: Headache or Minor Fever Stop: 02/27/22 13:20 Last Admin: 02/04/22 20:41 Dose: 650 mg Al Hydrox/Mg Hydrox/Simethicone (Aluminum/Magnesium Susp 30 Ml Udc) 30 ml PO Q4H PRN PRN Reason: GI Upset Stop: 02/27/22 13:20 Bismuth Subsalicylate (Bismuth Subsalicylate Liqd 236 Ml) 15 ml PO PRN PRN PRN Reason: Loose Stool Stop: 02/27/22 13:20 Bupropion HCl (Bupropion Xl 150 Mg Tabcr) 150 mg PO QAM [facility] Stop: 03/05/22 08:59 Last Admin: 02/09/22 08:32 Dose: 150 mg Diphenoxylate HCl/Atropine (Diphenoxylate/Atropine 2.5/0.025mg Tab) 1 tab PO Q4H PRN PRN Reason: Abdominal Cramping/Diarrhea Stop: 03/01/22 09:34 Hydroxyzine HCl (Hydroxyzine Hcl 25 Mg Tab) 50 mg PO HSZ PRN PRN Reason: Insomnia Stop: 02/27/22 13:20 Hydroxyzine HCl (Hydroxyzine Hcl 25 Mg Tab) 25 mg PO Q4H PRN PRN Reason: Anxiety Stop: 02/27/22 13:20 Hydroxyzine HCl (Hydroxyzine Hcl 25 Mg Tab) 50 mg PO HS CATHRYN Stop: 03/01/22 21:59 Last Admin: 02/08/22 21:06 Dose: 50 mg Lisinopril (Lisinopril 5 Mg Tab) 5 mg PO QAM CAT[facility] Stop: 03/10/22 08:59 Last Admin: 02/09/22 08:31 Dose: 5 mg Magnesium Hydroxide (Magnesium Hydroxide Susp 30 Ml Udc) 30 ml PO DAILY PRN PRN Reason: Constipation Stop: 02/27/22 13:20 Ondansetron HCl (Ondansetron 4 Mg Od Tab) 4 mg PO Q6H PRN PRN Reason: Nausea Stop: 03/01/22 09:35 Pantoprazole Sodium (Pantoprazole 40 Mg Tab) 40 mg PO QAM CAT[facility] Stop: 03/01/22 09:44 Last Admin: 02/09/22 08:32 Dose: 40 mg Propranolol HCl (Propranolol Hcl 10 Mg Tab) 10 mg PO BID PRN PRN Reason: Anxiety Stop: 03/09/22 20:59 Sodium Chloride (Sodium Chloride 0.65% Na Soln 45 Ml ([place])) 1 - 2 sprays NA PRN PRN PRN Reason: Nasal Dryness/Congestion Stop: 02/27/22 13:20 Mental Health & Subst Abuse Tx Psychiatrist Name of Psychiatrist: [facility] - Dr. Moni Olmedo Psychiatrist's Date of Appointment with Psychiatrist: 02/13/22 Time of Appointment with Psychiatrist: 1:30 PM Psychiatric Appointment Comment: [address] [place] [address]. Please provide updated insurance info Therapist Name of Therapist: Francisco Chopra Therapist's Date of Therapist Appointment: 02/20/22 Time of Therapist Appointment: 2:30 PM Therapy Appointment Comment: [address] [facility] [address], [address], [place] [address] Merchandise Manager Name of Merchandise Manager: [employer] Phone Number for Merchandise Manager: [phone] Case Management Appointment Comment: CM will follow up with you directly. Post Discharge Appointments Primary Care Physician Name Of Family Doctor: [facility] - SYDNEE Hitchcock Primary Care Date of Appointment with PCP: 02/20/22 Time of Appointment with PCP: 10:45 AM Provider Appointment Comment: [address] [facility] [place] [address]
[2022-02-09] MEDS: hydrOXYzine HCl 25 MG TAB PO SCH (21:09)
[2022-02-10] MEDS: lisinopril 5 MG TAB PO SCH (08:35)
[2022-02-10] MEDS: PANTOprazole 40 MG TAB PO SCH (08:35)
[2022-02-10] MEDS: buPROPion XL 150 MG TABCR PO SCH (08:35)
--- NOTE | 2022-02-10 17:21 | Psychiatric Progress Note ---
Date of Service February 10, 2022 Impression / Recommendations Impression 26 yo female, denied substance use hx, attempted OD on fentanyl patches few months after loss of from fentanyl OD (presumably tainted cocaine in [place]). Intermittent elevations in BP/P coinciding with stress around aunt/uncle's demand for guardianship of son. 02/10/22: depression improving still with anxiety related to significant stressor of custody case for her son, ongoing efforts to secure [place] which remains most significant barrier to safe discharge (1) Depression: (2) Complicated bereavement: (3) Suicide attempt by fentanyl overdose: Plan 02/10/22: Continue current medication and tx plan. 02/09/22: Continue current medication and tx plan. 02/08/22: Continue current medication and tx plan. 02/07/22: Switch propranolol 10mg BID prn for anxiety and start lisinopril 5mg qd for HTN which she consents to. Reviewed side effects including but not limited to: cough, low BP, electrolyte changes. 02/06/22: Continue current medications and tx plan. Focusing on modifiable psychosocial risk factors to reduce acute and chronic risk of self-harm. 02/05/22: Continue current medication and tx plan. 02/04/22: Continue current medication and tx plan. 02/03/22: continue current medication and tx plan. Patient exploring housing options. 02/02/22: Titrate Wellbutrin XL to 150 mg. 02/01/22: risks/benefits/alternatives reviewed re: antihypertensives that could help with anxiety/tachy. Agreed to a trial of low dose propranolol. Continue current dose of Wellbutrin for now. 01/31/22: Risks/benefits/alternatives reviewed re: antidepressants for the treatment of depression and/or anxiety. Discussion included but was not limited to FDA warnings re: suicidality in adolescents and young adults. The patient agreed to a trial of Wellbutrin SR 100 mg po qam starting today and monitor for jitteriness given co-morbid anxiety. 01/30/22: 1 time dose of clonidine and initiate detox protocol with clonidine and lomotil. Zofran prn, deferring start of SSRI as not eating consistently and N, pantoprazole 40 mg daily as suspect mild gastritis following ingestion of patches. 01/29/22: The patient was admitted to the [facility] (locked inpatient mental health unit) on q15 min checks (behavioral with suicide precautions) for safety. The patient will participate in group, recreational, and milieu therapies and will be offered additional individual and family sessions as clinically appropriate. Risks/benefits/alternatives reviewed re: antidepressants and sleep agents. The patient agreed to Vistaril standing order on trial basis and is willing to discuss antidepressant options more in am as remains overwhelmed. She denies withdrawal symptoms. Suicide Risk Level Suicide Risk Level: Moderate (q15 min suicide checks) (serious suicide attempt prior to admission but gradual improvement in mood and denies current SI) Risk Factors Assessment : Yes Do You Have Access To A Gun?: No Mental Health Diagnoses: Yes Substance Use Disorders: No Previous Psychiatric Hospitalization: Yes Protective Factors Assessment Responsible for Young Children: Yes Interval History Identifying Information BELLA LOVE is a 26-year-old F who currently lives in [place], has a history psychiatric admissions as a teenager, and was admitted on 01/28/22 14:11 on a 201 voluntary commitment on discharge from the medical floor following an intentional OD. Chief Complaint "My appetite is getting better". Review of Systems Sleep Information Total Hours of Sleep: 8 Meal Information Percent Meal Consumed - Breakfast: 100 Percent Meal Consumed - Lunch: 50 Percent Meal Consumed - Dinner: 75 Nutrition Comment: Poor appetite; meal saved per patient request Subjective Subjective Patient was seen & assessed and interval progress reviewed with treatment team nursing and social work. Mood is stable, appetite improving a little bit. Still working on housing. Anxiety especially related to custody case. She likes the current dose of Wellbutrin, feels it's working well. Physical Exam Psychiatric Orientation: alert and oriented x 3 Apperance: appropriately dressed and appropriately groomed Eye Contact: + fair eye contact Motor Behavior: no abnormal motor movements Speech: normal rate/rhythm/volume of speech Affect: + constricted affect (some smiles ) Mood: + depressed mood and + anxious mood Thought Process: goal directed thought process Thought Content: reality based without delusions Suicidal Thoughts: denies suicidal thoughts, denies suicidal plan and denies suicidal intent Homicidal Thoughts: denies homicidal thoughts Hallucinations: no auditory hallucinations and no visual hallucinations Cognition: attention grossly intact and language grossly intact Estimated Intelligence: consistent with education level Insight: + fair insight Judgement: + fair judgement Vital Signs (Past 24 Hours) Last Vital Signs Temp 36.8 C 02/10/22 06:00 Pulse 83 02/10/22 06:38 Resp 16 02/10/22 06:00 BP 132/85 02/10/22 06:38 Pulse Ox 98 02/09/22 20:41 O2 Del Method 02/09/22 20:41 Results & Data ([facility]) Current Inpatient Medications Current Inpatient Medications: Current Inpatient Medications Acetaminophen (Acetaminophen 325 Mg Tab) 650 mg PO Q4H PRN PRN Reason: Headache or Minor Fever Stop: 02/27/22 13:20 Last Admin: 02/04/22 20:41 Dose: 650 mg Al Hydrox/Mg Hydrox/Simethicone (Aluminum/Magnesium Susp 30 Ml Udc) 30 ml PO Q4H PRN PRN Reason: GI Upset Stop: 02/27/22 13:20 Bismuth Subsalicylate (Bismuth Subsalicylate Liqd 236 Ml) 15 ml PO PRN PRN PRN Reason: Loose Stool Stop: 02/27/22 13:20 Bupropion HCl (Bupropion Xl 150 Mg Tabcr) 150 mg PO QAM CATHRYN Stop: 03/05/22 08:59 Last Admin: 02/10/22 08:35 Dose: 150 mg Diphenoxylate HCl/Atropine (Diphenoxylate/Atropine 2.5/0.025mg Tab) 1 tab PO Q4H PRN PRN Reason: Abdominal Cramping/Diarrhea Stop: 03/01/22 09:34 Hydroxyzine HCl (Hydroxyzine Hcl 25 Mg Tab) 50 mg PO HSZ PRN PRN Reason: Insomnia Stop: 02/27/22 13:20 Hydroxyzine HCl (Hydroxyzine Hcl 25 Mg Tab) 25 mg PO Q4H PRN PRN Reason: Anxiety Stop: 02/27/22 13:20 Hydroxyzine HCl (Hydroxyzine Hcl 25 Mg Tab) 50 mg PO HS CATHRYN Stop: 03/01/22 21:59 Last Admin: 02/09/22 21:09 Dose: 50 mg Lisinopril (Lisinopril 5 Mg Tab) 5 mg PO QAM CATHRYN Stop: 03/10/22 08:59 Last Admin: 02/10/22 08:35 Dose: 5 mg Magnesium Hydroxide (Magnesium Hydroxide Susp 30 Ml Udc) 30 ml PO DAILY PRN PRN Reason: Constipation Stop: 02/27/22 13:20 Ondansetron HCl (Ondansetron 4 Mg Od Tab) 4 mg PO Q6H PRN PRN Reason: Nausea Stop: 03/01/22 09:35 Pantoprazole Sodium (Pantoprazole 40 Mg Tab) 40 mg PO QAM CATHRYN Stop: 03/01/22 09:44 Last Admin: 02/10/22 08:35 Dose: 40 mg Propranolol HCl (Propranolol Hcl 10 Mg Tab) 10 mg PO BID PRN PRN Reason: Anxiety Stop: 03/09/22 20:59 Sodium Chloride (Sodium Chloride 0.65% Na Soln 45 Ml ([place])) 1 - 2 sprays NA PRN PRN PRN Reason: Nasal Dryness/Congestion Stop: 02/27/22 13:20 Mental Health & Subst Abuse Tx Psychiatrist Name of Psychiatrist: Javed Psychiatrist's Date of Appointment with Psychiatrist: 02/22/22 Time of Appointment with Psychiatrist: 10:15 AM Psychiatric Appointment Comment: [address], [place] [address] Therapist Name of Therapist: Francisco Chopra Therapist's Date of Therapist Appointment: 02/20/22 Time of Therapist Appointment: 2:30 PM Therapy Appointment Comment: [address], [address], [place] [address] Consulting Business Developer Name of Consulting Business Developer: [facility] [place] Phone Number for Consulting Business Developer: [phone] Case Management Appointment Comment: CM will follow up with you directly. Post Discharge Appointments Primary Care Physician Name Of Family Doctor: [facility] - Dr. [facility] Date of Appointment with PCP: 03/02/22 Time of Appointment with PCP: 9:45 AM Provider Appointment Comment: [address], [place] [address]
[2022-02-10] MEDS: hydrOXYzine HCl 25 MG TAB PO SCH (20:26)
[2022-02-11] MEDS: buPROPion XL 150 MG TABCR PO SCH (09:03)
[2022-02-11] MEDS: PANTOprazole 40 MG TAB PO SCH (09:03)
[2022-02-11] MEDS: lisinopril 5 MG TAB PO SCH (09:03)
--- NOTE | 2022-02-11 10:04 | Psychiatric Progress Note ---
Date of Service February 11, 2022 Impression / Recommendations Impression 26 yo female, denied substance use hx, attempted OD on fentanyl patches few months after loss of from fentanyl OD (presumably tainted cocaine in [place]). Intermittent elevations in BP/P coinciding with stress around aunt/uncle's demand for guardianship of son. 02/11/22: patient to decompensate if unable to be discharged to safe housing. (1) Depression: (2) Complicated bereavement: (3) Suicide attempt by fentanyl overdose: Plan 02/11/22: interim progress reviewed, continue current medication and tx plan. 02/08-02/10/22: Continue current medication and tx plan. 02/07/22: Switch propranolol 10mg BID prn for anxiety and start lisinopril 5mg qd for HTN which she consents to. Reviewed side effects including but not limited to: cough, low BP, electrolyte changes. 02/06/22: Continue current medications and tx plan. Focusing on modifiable psychosocial risk factors to reduce acute and chronic risk of self-harm. 02/04, 02/05/22: Continue current medication and tx plan. 02/03/22: continue current medication and tx plan. Patient exploring housing options. 02/02/22: Titrate Wellbutrin XL to 150 mg. 02/01/22: risks/benefits/alternatives reviewed re: antihypertensives that could help with anxiety/tachy. Agreed to a trial of low dose propranolol. Continue current dose of Wellbutrin for now. 01/31/22: Risks/benefits/alternatives reviewed re: antidepressants for the treatment of depression and/or anxiety. Discussion included but was not limited to FDA warnings re: suicidality in adolescents and young adults. The patient agreed to a trial of Wellbutrin SR 100 mg po qam starting today and monitor for jitteriness given co-morbid anxiety. 01/30/22: 1 time dose of clonidine and initiate detox protocol with clonidine and lomotil. Zofran prn, deferring start of SSRI as not eating consistently and N, pantoprazole 40 mg daily as suspect mild gastritis following ingestion of patches. 01/29/22: The patient was admitted to the [facility] ([facility] mental health unit) on q15 min checks (behavioral with suicide precautions) for safety. The patient will participate in group, recreational, and milieu therapies and will be offered additional individual and family sessions as clinically appropriate. Risks/benefits/alternatives reviewed re: antidepressants and sleep agents. The patient agreed to Vistaril standing order on trial basis and is willing to discuss antidepressant options more in am as remains overwhelmed. She denies withdrawal symptoms. Suicide Risk Level Suicide Risk Level: Moderate (q15 min suicide checks) (serious suicide attempt prior to admission but gradual improvement in mood and denies current SI) Risk Factors Assessment : Yes Do You Have Access To A Gun?: No Mental Health Diagnoses: Yes Substance Use Disorders: No Previous Psychiatric Hospitalization: Yes Protective Factors Assessment Responsible for Young Children: Yes Interval History Identifying Information BELLA LOVE is a 26-year-old F who currently lives in [place], has a history psychiatric admissions as a teenager, and was admitted on 01/28/22 14:11 on a 201 voluntary commitment on discharge from the medical floor following an intentional OD. Chief Complaint "I'm good" Review of Systems Sleep Information Total Hours of Sleep: 7.5 Meal Information Percent Meal Consumed - Breakfast: 50 Percent Meal Consumed - Lunch: 50 Percent Meal Consumed - Dinner: 80 Subjective Subjective Patient was seen & assessed and interval progress reviewed with nursing and social work. rated her mood as 7.5 last night and hopeful. Physical Exam Psychiatric Orientation: alert and oriented x 3 Apperance: appropriately dressed and appropriately groomed Eye Contact: good eye contact Motor Behavior: no abnormal motor movements Speech: normal rate/rhythm/volume of speech Affect: euthymic affect Mood: + depressed mood Thought Process: goal directed thought process Thought Content: reality based without delusions Suicidal Thoughts: denies suicidal thoughts Homicidal Thoughts: denies homicidal thoughts Hallucinations: no auditory hallucinations and no visual hallucinations Cognition: attention grossly intact and language grossly intact Estimated Intelligence: consistent with education level Insight: + limited insight Judgement: + limited judgement Vital Signs (Past 24 Hours) Last Vital Signs Temp 36.5 C 02/11/22 06:33 Pulse 80 02/11/22 06:34 Resp 16 02/11/22 06:33 BP 118/83 02/11/22 06:34 Pulse Ox 99 02/10/22 20:12 O2 Del Method 02/10/22 20:12 Results & Data ([facility]) Current Inpatient Medications Current Inpatient Medications: Current Inpatient Medications Acetaminophen (Acetaminophen 325 Mg Tab) 650 mg PO Q4H PRN PRN Reason: Headache or Minor Fever Stop: 02/27/22 13:20 Last Admin: 02/04/22 20:41 Dose: 650 mg Al Hydrox/Mg Hydrox/Simethicone (Aluminum/Magnesium Susp 30 Ml Udc) 30 ml PO Q4H PRN PRN Reason: GI Upset Stop: 02/27/22 13:20 Bismuth Subsalicylate (Bismuth Subsalicylate Liqd 236 Ml) 15 ml PO PRN PRN PRN Reason: Loose Stool Stop: 02/27/22 13:20 Bupropion HCl (Bupropion Xl 150 Mg Tabcr) 150 mg PO QAM [facility] Stop: 03/05/22 08:59 Last Admin: 02/11/22 09:03 Dose: 150 mg Diphenoxylate HCl/Atropine (Diphenoxylate/Atropine 2.5/0.025mg Tab) 1 tab PO Q4H PRN PRN Reason: Abdominal Cramping/Diarrhea Stop: 03/01/22 09:34 Hydroxyzine HCl (Hydroxyzine Hcl 25 Mg Tab) 50 mg PO HSZ PRN PRN Reason: Insomnia Stop: 02/27/22 13:20 Hydroxyzine HCl (Hydroxyzine Hcl 25 Mg Tab) 25 mg PO Q4H PRN PRN Reason: Anxiety Stop: 02/27/22 13:20 Hydroxyzine HCl (Hydroxyzine Hcl 25 Mg Tab) 50 mg PO HS CATHRYN Stop: 03/01/22 21:59 Last Admin: 02/10/22 20:26 Dose: 50 mg Lisinopril (Lisinopril 5 Mg Tab) [facility] Stop: 03/10/22 08:59 Last Admin: 02/11/22 09:03 Dose: 5 mg Magnesium Hydroxide (Magnesium Hydroxide Susp 30 Ml Udc) 30 ml PO DAILY PRN PRN Reason: Constipation Stop: 02/27/22 13:20 Ondansetron HCl (Ondansetron 4 Mg Od Tab) 4 mg PO Q6H PRN PRN Reason: Nausea Stop: 03/01/22 09:35 Pantoprazole Sodium (Pantoprazole 40 Mg Tab) 40 mg PO QAM [facility] Stop: 03/01/22 09:44 Last Admin: 02/11/22 09:03 Dose: 40 mg Propranolol HCl (Propranolol Hcl 10 Mg Tab) 10 mg PO BID PRN PRN Reason: Anxiety Stop: 03/09/22 20:59 Sodium Chloride (Sodium Chloride 0.65% Na Soln 45 Ml ([place])) 1 - 2 sprays NA PRN PRN PRN Reason: Nasal Dryness/Congestion Stop: 02/27/22 13:20 Mental Health & Subst Abuse Tx Psychiatrist Name of Psychiatrist: Javed Psychiatrist's Date of Appointment with Psychiatrist: 02/22/22 Time of Appointment with Psychiatrist: 10:15 AM Psychiatric Appointment Comment: [address], [place] [address] Therapist Name of Therapist: Francisco Chopra Therapist's Date of Therapist Appointment: 02/20/22 Time of Therapist Appointment: 2:30 PM Therapy Appointment Comment: [address], [address], [place] [address] Biology Teacher Name of Biology Teacher: [facility] Phone Number for Biology Teacher: [phone] Case Management Appointment Comment: CM will follow up with you directly. Post Discharge Appointments Primary Care Physician Name Of Family Doctor: [facility] - Dr. B[facility] Date of Appointment with PCP: 03/02/22 Time of Appointment with PCP: 9:45 AM Provider Appointment Comment: [address], [place] [address]
[2022-02-11] MEDS: hydrOXYzine HCl 25 MG TAB PO SCH (21:38)
[2022-02-12] MEDS: PANTOprazole 40 MG TAB PO SCH (09:21)
[2022-02-12] MEDS: buPROPion XL 150 MG TABCR PO SCH (09:21)
[2022-02-12] MEDS: lisinopril 5 MG TAB PO SCH (09:21)
--- NOTE | 2022-02-12 12:00 | Psychiatric Progress Note ---
Date of Service February 12, 2022 Impression / Recommendations Impression 26 yo female, denied substance use hx, attempted OD on fentanyl patches few months after loss of from fentanyl OD (presumably tainted cocaine in [place]). Intermittent elevations in BP/P coinciding with stress around aunt/uncle's demand for guardianship of son. 02/12/22: patient to decompensate if unable to be discharged to safe housing. Plan: continue current medication and tx plan. (1) Depression: (2) Complicated bereavement: (3) Suicide attempt by fentanyl overdose: Suicide Risk Level Suicide Risk Level: Moderate (q15 min suicide checks) (serious suicide attempt prior to admission but gradual improvement in mood and denies current SI) Risk Factors Assessment : Yes Do You Have Access To A Gun?: No Mental Health Diagnoses: Yes Substance Use Disorders: No Previous Psychiatric Hospitalization: Yes Protective Factors Assessment Responsible for Young Children: Yes Interval History Identifying Information BELLA LOVE is a 26-year-old F who currently lives in [place], has a history psychiatric admissions as a teenager, and was admitted on 01/28/22 14:11 on a 201 voluntary commitment on discharge from the medical floor following an intentional OD. Chief Complaint "I still need shoes for court" Review of Systems Sleep Information Total Hours of Sleep: 6 Meal Information Percent Meal Consumed - Breakfast: 75 Percent Meal Consumed - Lunch: 50 Percent Meal Consumed - Dinner: 75 Subjective Subjective Patient was seen & assessed and interval progress reviewed with nursing and social work. Patient has been brighter in interactions. Has a good sense of timeline for [facility] and custody hearing. wants to move on. Physical Exam Psychiatric Orientation: alert and oriented x 3 Apperance: appropriately dressed and appropriately groomed Eye Contact: good eye contact Motor Behavior: no abnormal motor movements Speech: normal rate/rhythm/volume of speech Affect: euthymic affect Mood: + depressed mood Thought Process: goal directed thought process Thought Content: reality based without delusions Suicidal Thoughts: denies suicidal thoughts Homicidal Thoughts: denies homicidal thoughts Hallucinations: no auditory hallucinations and no visual hallucinations Cognition: attention grossly intact and language grossly intact Vital Signs (Past 24 Hours) Last Vital Signs Temp 36.6 C 02/12/22 06:32 Pulse 76 02/12/22 06:33 Resp 16 02/12/22 06:32 BP 115/78 02/12/22 06:33 Pulse Ox 99 10/22/22 21:00 O2 Del Method 02/11/22 21:00 Results & Data ([facility]) Current Inpatient Medications Current Inpatient Medications: Current Inpatient Medications Acetaminophen (Acetaminophen 325 Mg Tab) 650 mg PO Q4H PRN PRN Reason: Headache or Minor Fever Stop: 02/27/22 13:20 Last Admin: 02/04/22 20:41 Dose: 650 mg Al Hydrox/Mg Hydrox/Simethicone (Aluminum/Magnesium Susp 30 Ml Udc) 30 ml PO Q4H PRN PRN Reason: GI Upset Stop: 02/27/22 13:20 Bismuth Subsalicylate (Bismuth Subsalicylate Liqd 236 Ml) 15 ml PO PRN PRN PRN Reason: Loose Stool Stop: 02/27/22 13:20 Bupropion HCl (Bupropion Xl 150 Mg Tabcr) 150 mg PO QAM [facility] Stop: 03/05/22 08:59 Last Admin: 02/12/22 09:21 Dose: 150 mg Diphenoxylate HCl/Atropine (Diphenoxylate/Atropine 2.5/0.025mg Tab) 1 tab PO Q4H PRN PRN Reason: Abdominal Cramping/Diarrhea Stop: 03/01/22 09:34 Hydroxyzine HCl (Hydroxyzine Hcl 25 Mg Tab) 50 mg PO HSZ PRN PRN Reason: Insomnia Stop: 02/27/22 13:20 Hydroxyzine HCl (Hydroxyzine Hcl 25 Mg Tab) 25 mg PO Q4H PRN PRN Reason: Anxiety Stop: 02/27/22 13:20 Hydroxyzine HCl (Hydroxyzine Hcl 25 Mg Tab) 50 mg PO HS CATHRYN Stop: 03/01/22 21:59 Last Admin: 02/11/22 21:38 Dose: 50 mg Lisinopril (Lisinopril 5 Mg Tab) 5 mg PO QAM [facility] Stop: 03/10/22 08:59 Last Admin: 02/12/22 09:21 Dose: 5 mg Magnesium Hydroxide (Magnesium Hydroxide Susp 30 Ml Udc) 30 ml PO DAILY PRN PRN Reason: Constipation Stop: 02/27/22 13:20 Ondansetron HCl (Ondansetron 4 Mg Od Tab) 4 mg PO Q6H PRN PRN Reason: Nausea Stop: 03/01/22 09:35 Pantoprazole Sodium (Pantoprazole 40 Mg Tab) 40 mg PO QAM CAT[facility] Stop: 03/01/22 09:44 Last Admin: 02/12/22 09:21 Dose: 40 mg Propranolol HCl (Propranolol Hcl 10 Mg Tab) 10 mg PO BID PRN PRN Reason: Anxiety Stop: 03/09/22 20:59 Sodium Chloride (Sodium Chloride 0.65% Na Soln 45 Ml ([place])) 1 - 2 sprays NA PRN PRN PRN Reason: Nasal Dryness/Congestion Stop: 02/27/22 13:20 Mental Health & Subst Abuse Tx Psychiatrist Name of Psychiatrist: Javed Psychiatrist's Date of Appointment with Psychiatrist: 02/22/22 Time of Appointment with Psychiatrist: 10:15 AM Psychiatric Appointment Comment: [address], [place] [address] Therapist Name of Therapist: Francisco Chopra Therapist's Date of Therapist Appointment: 02/20/22 Time of Therapist Appointment: 2:30 PM Therapy Appointment Comment: [address], [address], [place] [address] Bindery Worker Name of Bindery Worker: [facility] Phone Number for Bindery Worker: [phone] Case Management Appointment Comment: CM will follow up with you directly. Post Discharge Appointments Primary Care Physician Name Of Family Doctor: [facility] - Dr. B[facility] Date of Appointment with PCP: 03/02/22 Time of Appointment with PCP: 9:45 AM Provider Appointment Comment: [address], [place] [address]
[2022-02-12] MEDS: hydrOXYzine HCl 25 MG TAB PO SCH (21:42)
[2022-02-13] MEDS: PANTOprazole 40 MG TAB PO SCH (08:36)
[2022-02-13] MEDS: lisinopril 5 MG TAB PO SCH (08:36)
[2022-02-13] MEDS: buPROPion XL 150 MG TABCR PO SCH (08:36)
--- NOTE | 2022-02-13 12:17 | Psychiatric Progress Note ---
Date of Service February 13, 2022 Impression / Recommendations Impression 26 yo female, denied substance use hx, attempted OD on fentanyl patches few months after loss of from fentanyl OD (presumably tainted cocaine in [place]). Intermittent elevations in BP/P coinciding with stress around aunt/uncle's demand for guardianship of son. 02/13/22: improving Plan: continue current medication and tx plan. Discussed recommended course of tx with Wellbutrin of 9-12 months for depression to limit risk of relapse, etc. (1) Depression: (2) Complicated bereavement: (3) Suicide attempt by fentanyl overdose: Suicide Risk Level Suicide Risk Level: Moderate (q15 min suicide checks) (serious suicide attempt prior to admission but gradual improvement in mood and denies current SI) Risk Factors Assessment : Yes Do You Have Access To A Gun?: No Mental Health Diagnoses: Yes Substance Use Disorders: No Previous Psychiatric Hospitalization: Yes Protective Factors Assessment Responsible for Young Children: Yes Interval History Identifying Information BELLA LOVE is a 26-year-old F who currently lives in [place], has a history psychiatric admissions as a teenager, and was admitted on 01/28/22 14:11 on a 201 voluntary commitment on discharge from the medical floor following an intentional OD. Chief Complaint "hanging in there." Review of Systems Sleep Information Total Hours of Sleep: 7 Meal Information Percent Meal Consumed - Breakfast: 25 Percent Meal Consumed - Lunch: 50 Percent Meal Consumed - Dinner: 78 Subjective Subjective Patient was seen & assessed and interval progress reviewed with treatment team. will have support of [facility] and case management at the custody hearing to process as part of safety plan. No med concerns, confirmed preferred pharmacy with her CM. Physical Exam Psychiatric Orientation: alert and oriented x 3 Apperance: appropriately dressed and appropriately groomed Eye Contact: good eye contact Motor Behavior: no abnormal motor movements Speech: normal rate/rhythm/volume of speech Affect: euthymic affect Mood: + anxious mood Thought Process: goal directed thought process Thought Content: reality based without delusions Suicidal Thoughts: denies suicidal thoughts Homicidal Thoughts: denies homicidal thoughts Hallucinations: no auditory hallucinations and no visual hallucinations Cognition: attention grossly intact and language grossly intact Estimated Intelligence: consistent with education level Vital Signs (Past 24 Hours) Last Vital Signs Temp 36.6 C 02/13/22 06:46 Pulse 87 02/13/22 06:47 Resp 16 02/13/22 06:46 BP 121/84 02/13/22 06:47 Pulse Ox 99 02/12/22 20:56 O2 Del Method 02/12/22 20:56 Results & Data ([facility]) Current Inpatient Medications Current Inpatient Medications: Current Inpatient Medications Acetaminophen (Acetaminophen 325 Mg Tab) 650 mg PO Q4H PRN PRN Reason: Headache or Minor Fever Stop: 02/27/22 13:20 Last Admin: 02/04/22 20:41 Dose: 650 mg Al Hydrox/Mg Hydrox/Simethicone (Aluminum/Magnesium Susp 30 Ml Udc) 30 ml PO Q4H PRN PRN Reason: GI Upset Stop: 02/27/22 13:20 Bismuth Subsalicylate (Bismuth Subsalicylate Liqd 236 Ml) 15 ml PO PRN PRN PRN Reason: Loose Stool Stop: 02/27/22 13:20 Bupropion HCl (Bupropion Xl 150 Mg Tabcr) 150 mg PO QAM [facility] Stop: 03/05/22 08:59 Last Admin: 02/13/22 08:36 Dose: 150 mg Diphenoxylate HCl/Atropine (Diphenoxylate/Atropine 2.5/0.025mg Tab) 1 tab PO Q4H PRN PRN Reason: Abdominal Cramping/Diarrhea Stop: 03/01/22 09:34 Hydroxyzine HCl (Hydroxyzine Hcl 25 Mg Tab) 50 mg PO HSZ PRN PRN Reason: Insomnia Stop: 02/27/22 13:20 Hydroxyzine HCl (Hydroxyzine Hcl 25 Mg Tab) 25 mg PO Q4H PRN PRN Reason: Anxiety Stop: 02/27/22 13:20 Hydroxyzine HCl (Hydroxyzine Hcl 25 Mg Tab) 50 mg PO HS CATHRYN Stop: 03/01/22 21:59 Last Admin: 02/12/22 21:42 Dose: 50 mg Lisinopril (Lisinopril 5 Mg Tab) 5 mg PO QAM CATHRYN Stop: 03/10/22 08:59 Last Admin: 02/13/22 08:36 Dose: 5 mg Magnesium Hydroxide (Magnesium Hydroxide Susp 30 Ml Udc) 30 ml PO DAILY PRN PRN Reason: Constipation Stop: 02/27/22 13:20 Ondansetron HCl (Ondansetron 4 Mg Od Tab) 4 mg PO Q6H PRN PRN Reason: Nausea Stop: 03/01/22 09:35 Pantoprazole Sodium (Pantoprazole 40 Mg Tab) 40 mg PO QAM CATHRYN Stop: 03/01/22 09:44 Last Admin: 02/13/22 08:36 Dose: 40 mg Propranolol HCl (Propranolol Hcl 10 Mg Tab) 10 mg PO BID PRN PRN Reason: Anxiety Stop: 03/09/22 20:59 Sodium Chloride (Sodium Chloride 0.65% Na Soln 45 Ml ([place])) 1 - 2 sprays NA PRN PRN PRN Reason: Nasal Dryness/Congestion Stop: 02/27/22 13:20 Mental Health & Subst Abuse Tx Psychiatrist Name of Psychiatrist: Javed Psychiatrist's Date of Appointment with Psychiatrist: 02/22/22 Time of Appointment with Psychiatrist: 10:15 AM Psychiatric Appointment Comment: [address], [place] [address] Therapist Name of Therapist: Francisco Chopra Therapist's Date of Therapist Appointment: 02/20/22 Time of Therapist Appointment: 2:30 PM Therapy Appointment Comment: [address], [place] [address] Whiteprinting Machine Operator Name of Whiteprinting Machine Operator: [facility] Phone Number for Whiteprinting Machine Operator: [phone] Case Management Appointment Comment: CM will follow up with you directly. Post Discharge Appointments Primary Care Physician Name Of Family Doctor: [facility] - Dr. Baires Primary [facility] Date of Appointment with PCP: 03/02/22 Time of Appointment with PCP: 9:45 AM Provider Appointment Comment: [address], [place] [address]
[2022-02-13] MEDS: hydrOXYzine HCl 25 MG TAB PO SCH (22:11)
[2022-02-14] MEDS: PANTOprazole 40 MG TAB PO SCH (08:33)
[2022-02-14] MEDS: buPROPion XL 150 MG TABCR PO SCH (08:33)
[2022-02-14] MEDS: lisinopril 5 MG TAB PO SCH (08:33)
--- NOTE | 2022-02-15 07:32 | Discharge Summary ---
Date of Service February 15, 2022; date of discharge 02/14/22. History of Present Illness Patient was seen on consult service by Dr. Edward on 01/27/22: Gina presented to the ED status post suicide attempt via fentanyl patch ingestion as part of a suicide attempt requiring Narcan and medical admission. She expresses worsening depression following her 's via accidental overdose in September. He states her suicidal ideation came on the day prior to the attempt and then when her aunt and uncle left the home for a few hours with her 4-year-old son she decided to act on the thoughts by eating a bunch of her aunts prescribed fentanyl patches. She was found with decreased level of responsiveness and EMS called and presented to the ED and now medically admitted. She currently notes ambivalence about having survived the attempt with tearfulness and difficulty speaking to her current mood. She denies current suicidal ideation but remains very hopeless. She has no current psychiatric services, was hospitalized 4 times in her childhood at the [facility] with last hospitalization in 2011. She had 1 prior suicide attempt about 10 years ago via overdose on her medications. She has not been on any psychiatric medications for about 9 or 10 years since adolescence. Notes diagnoses in the past of depression and anxiety and ADHD. Today she seems quite overwhelmed, states she is shy and anxious at baseline so all of this is alot to talk about. Alludes to longstanding family conflicts and reports that she left her father's home at age 16 and was living with her aunt and uncle (who are not full blood relatives but related to her cousin). She hasn't been able to establish work, residency, source of income since relocating 5-6 weeks ago. She did not express remorse for her attempt. She denies physical symptoms but would like a more stable mood and to sleep better. She denied any history of wiliam and endorsed multiple vegetative symptoms of depression (hopeless, poor concentration, appetite and sleep). Physical Exam Psychiatric See admission H&P and DOD assessment. Vital Signs (Past 24 Hours) Last Vital Signs Temp 36.6 C 02/14/22 08:52 Pulse 91 H 02/14/22 08:52 Resp 16 02/14/22 08:52 BP 125/86 02/14/22 08:52 Pulse Ox 99 02/14/22 08:52 O2 Del Method 02/12/22 20:56 Principal Diagnosis major depressive disorder Psychiatric Data See daily stay summary. In short, safety was maintained and the patient was cooperative with care. Medication changes included a trial of Wellbutrin for mood and focus and starting antihypertensive medication and they tolerated this well. The patient met extensively with her new leather case finisher re: coordination of services, phone, custody hearing. She was unable to return to the home of her non-biological aunt and uncle but was assisted in securing housing through [employer]. She was also connected with [facility] as she was served with paperwork during her stay by aunt and uncle who are seeking emergency guardianship of her son after she did not sign paperwork they requested due to limits on her parental rights. A safety plan was completed prior to discharge. Day of Discharge Assessment Today the patient voices readiness for discharge. They note improvement in mood and deny thoughts to harm self or others. Thoughts remain organized and they are improved from admission. There is no evidence of psychosis. They agree to take mediations as prescribed and keep follow-up appointments. They are stable for discharge to outpatient level of care. Transition of Care Transition Of Care Record: was reviewed with the patient Advance Directives Advance Directives Information Provided: Yes Advance Directives: No Mental Health Advance Directive: No Advance Directives on File: No Living Will: No Power of Video System Repairer: No Advance Directives Reason:: Declines as Mental Health Visit. Suicide Risk Level Suicide Risk Level Comments: Suicide risk at discharge is deemed low as the patient is no longer requiring 24-hr monitoring, has a safety plan, and is free of suicidal ideation at discharge. Risk Factors Assessment : Yes Do You Have Access To A Gun?: No Mental Health Diagnoses: Yes Substance Use Disorders: No Previous Psychiatric Hospitalization: Yes Protective Factors Assessment Responsible for Young Children: Yes Tobacco Cessation at Discharge Tobacco Cessation Medication Prescribed at Discharge: Not Applicable/Non-Smoker Opioid Risk Protocol The patient was admitted for an OD of fentanyl patches but is not a substance user and no longer in the home where she had access to patches. She declines need for Narcan nasal spray and there is no primary support in the home she would be living that would be reliable source of administration for education. Total Time Total Time Spent: Less Than 30 Minutes Hospital Course (1) Depression: (2) Complicated bereavement: (3) Suicide attempt by fentanyl overdose: Plan 02/11/22: interim progress reviewed, continue current medication and tx plan. 02/08-02/10/22: Continue current medication and tx plan. 02/07/22: Switch propranolol 10mg BID prn for anxiety and start lisinopril 5mg qd for HTN which she consents to. Reviewed side effects including but not limited to: cough, low BP, electrolyte changes. 02/06/22: Continue current medications and tx plan. Focusing on modifiable psychosocial risk factors to reduce acute and chronic risk of self-harm. 02/04, 02/05/22: Continue current medication and tx plan. 02/03/22: continue current medication and tx plan. Patient exploring housing options. 02/02/22: Titrate Wellbutrin XL to 150 mg. 02/01/22: risks/benefits/alternatives reviewed re: antihypertensives that could help with anxiety/tachy. Agreed to a trial of low dose propranolol. Continue current dose of Wellbutrin for now. 01/31/22: Risks/benefits/alternatives reviewed re: antidepressants for the treatment of depression and/or anxiety. Discussion included but was not limited to FDA warnings re: suicidality in adolescents and young adults. The patient agreed to a trial of Wellbutrin SR 100 mg po qam starting today and monitor for jitteriness given co-morbid anxiety. 01/30/22: 1 time dose of clonidine and initiate detox protocol with clonidine and lomotil. Zofran prn, deferring start of SSRI as not eating consistently and N, pantoprazole 40 mg daily as suspect mild gastritis following ingestion of patches. 01/29/22: The patient was admitted to the [facility] unit) on q15 min checks (behavioral with suicide precautions) for safety. The patient will participate in group, recreational, and milieu therapies and will be offered additional individual and family sessions as clinically appropriate. Risks/benefits/alternatives reviewed re: antidepressants and sleep agents. The patient agreed to Vistaril standing order on trial basis and is willing to discuss antidepressant options more in am as remains overwhelmed. She denies withdrawal symptoms. Mental Health & Subst Abuse Tx Psychiatrist Name of Psychiatrist: Javed Psychiatrist's Date of Appointment with Psychiatrist: 02/22/22 Time of Appointment with Psychiatrist: 10:15 AM Psychiatric Appointment Comment: [address], [place] [address] Psychiatrist Release of Information: Obtained, Reviewed and Signed Therapist Name of Therapist: Francisco Villarrealsea Therapist's Date of Therapist Appointment: 02/20/22 Time of Therapist Appointment: 2:30 PM Therapy Appointment Comment: [address], [address], [place] [address] Therapist Release of Information: Obtained, Reviewed and Signed Automation And Controls Instructor Name of Automation And Controls Instructor: [facility] Phone Number for Automation And Controls Instructor: [phone] Case Management Appointment Comment: CM will follow up with you directly. Automation And Controls Instructor Release of Information: Obtained, Reviewed and Signed Post Discharge Appointments Primary Care Physician Name Of Family Doctor: [facility] - Dr. Baires [facility] Date of Appointment with PCP: 03/02/22 Time of Appointment with PCP: 9:45 AM Provider Appointment Comment: [address], [place] [address] Primary Care Release of Information: Obtained, Reviewed and Signed Home Health Services Home Health Services:: None Smoking Cessation Counseling Tobacco Cessation Medication Prescribed at Discharge: Not Applicable/Non-Smoker Other #1: Name of Aftercare Appointment: [facility] Phone Number of Aftercare Appointment: Aftercare Appointment Comment: Call or email for grief support programs. #2: Name of Aftercare Appointment: [facility] (on waitlist) Phone Number of Aftercare Appointment: Aftercare Appointment Comment: They will contact you to discuss services and support/play groups. #3: Name of Aftercare Appointment: [facility] Phone Number of Aftercare Appointment: Aftercare Appointment Comment: See print out for program info; call if you would like to discuss services. Discharge Plan Discharge Items Patient Disposition: Home - Self-Care Reason For Visit: MDD Discharge Diagnosis: same Activity: Resume your previous activity Non-emergency contact: Primary Care Provider, Psychiatrist, Therapist and Lock Corner Machine Operator Call non-emergency contact if: you have any medication questions and your symptoms worsen Follow-up/Referrals: Marilin Basilio, [Primary Care Provider] - Diet: Regular Addtl Attending Provider Instructions: SPECIAL CARE INSTRUCTIONS: 1. Follow through with your scheduled aftercare appointments. If unable to keep an appointment, please call to reschedule. 2. Take your medication only as prescribed. Medication should not be changed or stopped without the approval of your doctor. In the event of worsening symptoms or concerns about side effects, contact your doctor immediately. 3. Utilize new healthy coping skills, anger management skills, and stress management skills learned during your hospitalization. Journal feelings and process them with a support person. Identify stressors or situations that may result in relapse, deterioration or inappropriate behaviors and develop a plan to deal with those issues. 4. If your coping skills are ineffective and you are in crisis, contact your outpatient providers for direction. If unable to reach your providers, please call the [facility] CRISIS LINE AT , go to the [facility] walk-in center at [address], [place], or go to the closest Emergency Room. 5. Avoid alcohol and un-prescribed drugs. 6. You have been provided with the Mental Health Advance Directives Pamphlet for your review. 7. Your condition is stable for discharge to outpatient level of care, but recovery is an ongoing process. Ifthoughts to harm yourself or others return, follow the safety plan developed during your stay. Planning for a safe return home includes securing weapons. Our treatment team recommends weaponsbe removed from the home until your outpatient provider reassesses your progress. In rare cases where the items themselvescannot be removed, guns and ammunitionshould be secured separatelyand keys stored by a reliable personoutside of the home. If you were admitted on an involuntary commitment, the police or other legal authorities may be involved in this process. AFTERCARE APPOINTMENTS: * Please call your insurance company prior to your scheduled appointment to confirm your aftercare providers are covered. Take your insurance information to your appointments. WHO TO CALL AND WHEN: Medical Emergencies: For questions or emergencies related to your hospital stay, please contact the Inpatient Behavioral Health Unit at [phone]. A cook helper meat is on-call 13/11 for the Behavioral Health Unit for emergencies At any time you feel your situation is an emergency, you may also call 911 immediately. Pending Studies at Discharge: No Stand-Alone Forms: [facility] [employer], Smoking Cessation Medications and DC Order Prescriptions: New hydroxyzine HCl 25 mg Tablet 50 mg PO HS Qty: 60 0RF Rx Instructions: may use an additional tab daily prn anxiety lisinopril [Zestril] 5 mg Tablet 5 mg PO QAM Qty: 30 0RF bupropion HCl 150 mg Tablet Extended Release 24 Hr 150 mg PO QAM Qty: 30 0RF pantoprazole 40 mg Tablet,Delayed Release (Dr/Ec) 40 mg PO QAM Qty: 7 0RF Discharge Orders: Discharge Order (Routine); Ordered 02/14/22 Ordered By: Halima Sidhu Admission Data Admit Date/Time: 01/28/22 14:11 Attending Provider: Halima Sidhu Admit Provider: Halima Sidhu Primary Care Provider: Marilin Basilio Other Interventions: Discharge Summary Assessment (RN) Last Done: 02/14/22 08:52 PSY Interdisciplinary Discharge Planning Last Done: 02/14/22 08:52 Coding Level of Care Code 08519 D/C day mgmt 30 min or < Diagnoses Depression F32.A Complicated bereavement F43.21 Suicide attempt by fentanyl overdose T40.412A
== END 2022-02-14 09:12 | disposition home or self-care (01) | DRG 881 ==
LOC: 3S 14:11

== ENCOUNTER 2022-07-19 22:48 | Inpatient (IN) ==
--- NOTE | 2022-07-19 23:06 | Emergency Department Note ---
History of Present Illness General Chief complaint: Mental Health Evaluation Stated complaint: SUCIDAL,WANTS TO KILL HERSELF Time Seen by Provider: 07/19/22 22:55 History of Present Illness 27-year-old female presents emergency department states that she has suicidal ideations to overdose on fentanyl. Patient did have a suicidal ideation and plan that was similar in January. Patient denies any nausea vomiting abdominal pain chest pain shortness of breath prior to this event. Patient states that she feels depressed. Patient does have an outpatient psychiatrist. Patient states that she started taking her Wellbutrin again this morning. Patient continues to have feelings of depression and anxiety. Patient is accompanied by a friend at bedside who states that she does not typically take her medicine and she has had increased depression. Home Medications Medication Instructions Recorded Confirmed Type bupropion HCl 150 mg 24 hr tablet, 300 mg PO QAM 03/02/22 07/19/22 History extended release ferrous gluconate 225 mg (27 mg 225 mg PO DAILY #30 tabs 03/02/22 07/19/22 Rx iron) tablet lisinopril 5 mg tablet (Zestril) 5 mg PO QAM #30 tabs 06/02/22 07/19/22 Rx mirtazapine 15 mg tablet 15 mg PO .qhs 06/02/22 07/19/22 History norethindrone 1 mg-ethinyl 1 tab PO DAILY #84 tabs 06/02/22 07/19/22 Rx estradiol 35 mcg tablet (Alyacen) Allergies Allergy/AdvReac Type Severity Reaction Status Date / Time No Known Allergies AdvReac Unknown Unverified 06/02/22 08:49 Past Med/Surg History Medical History ADHD Depression Suicide attempt by fentanyl overdose Surgical History No pertinent past surgical history Family History Mother Diabetes Hypertension Sister Depression Denies family history of Ovarian cancer Prostate cancer Myocardial infarction Breast cancer Lung cancer Colorectal cancer Social History Smoking Status: Never smoker Second Hand Exposure: No; Hx Alcohol Use: No Hx Substance Use: No Preferred Language: Faroese Communication Ability: Effective 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 Beliefs That Will Affect Care: None marital status: / Current Living Situation: Other Current Living Situation Comment: lives with others current occupational status: unemployed How many Children do You have: 1 Feels Safe at Home: Yes Childhood Exposure to Second-Hand Smoke: No caffeine: Yes (occasional soda) Dental Care, Regularly: No Physical Activity Frequency: Other Physical Activity Frequency Comment: walking Seatbelt Use: always Sunscreen Use: No Gender Identity: Female Assistive Devices: None Review of Systems A total of 10 systems reviewed and were otherwise negative Psychiatric: + depression, + suicidal ideation and + anxiety Physical Exam Vital Signs Vital Signs - 24 hr 07/19/22 22:49 07/20/22 00:20 Temperature 36.7 C Temperature Source Temporal Artery Scan Pulse Rate 119 H Pulse Rate [Finger] 90 Respiratory Rate 18 16 Respiratory Effort / Characteristics Non-Labored Spontaneous Respiratory Depth Normal Blood Pressure 191/131 H Blood Pressure [Right Arm] 149/94 H Blood Pressure Mean 151 Blood Pressure Mean [Right Arm] 112 Blood Pressure Position Sitting Pulse Oximetry 100 97 Oxygen Delivery Method Room Air Room Air Sepsis Recent Fever Within 48 Hours No Sepsis New/Unexplained Change in Mental Status No Sepsis Action Taken by Nursing No Action Required GENERAL: Patient is awake alert in no acute distress patient is resting comfortably and showing no signs of anxiety EYES: The conjunctivae are clear. The pupils are round and reactive. EARS, NOSE, MOUTH AND THROAT: The nose is without any evidence of any deformity. Mucous membranes are moist. Tongue is midline. NECK: The neck is nontender and supple. RESPIRATORY: Normal respiratory effort is noted there is no evidence of wheezing rhonchi or rales CARDIOVASCULAR: Regular rate and rhythm noted there no murmurs rubs or gallops normal S1 normal S2. GASTROINTESTINAL: The abdomen is soft. Abdomen is nontender. BACK: No midline tenderness or or step-off noted range of motion in flexion extension as well as rotation no signs of muscle spasm noted MUSCULOSKELETAL/EXTREMITIES: There is no evidence of gross deformity full range of motion is noted in the hips and shoulders. SKIN: There is no obvious evidence of any rash. There are no petechiae, pallor or cyanosis noted. NEUROLOGIC: Patient is awake alert and oriented x3 strength is symmetric PSYCH: Depressed, suicidal ideation Course Reevaluation(s) Reevaluation #1: Patient resting in no distress; patient was medically cleared at 2:15 AM and was excepted to 3 S. for further psychiatric evaluation Time: 02:53 Medical Decision Making Medical Records Attestation: I reviewed the patient's medical records. Home Medications Current Medication List: was personally reviewed by me Laboratory Data Attestation: I reviewed the patient's lab results. Lab work is unremarkable 07/19/22 23:20 07/19/22 23:20 Lab Results 07/19/22 07/19/22 07/19/22 Range/Units 23:20 23:20 23:20 WBC 8.78 (4.8-10.8) K/ul RBC 5.15 (4.20-5.40) M/uL Hgb 13.6 (12.0-16.0) g/dl Hct 41.8 (37.0-47.0) % MCV 81.2 (80.0-100.0) fL MCH 26.4 (25.0-34.0) pg MCHC 32.5 (32.0-36.0) g/dL RDW Std Deviation 44.6 (36.4-46.3) fL RDW Coeff of Harvey 15.0 H (11.5-14.5) % Plt Count 450 H (130-400) K/uL MPV 9.2 L (9.4-12.4) fL Immature Gran % (Auto) 0.2 % Neut % (Auto) 65.2 % Lymph % (Auto) 28.2 % Dixon % (Auto) 5.4 % Eos % (Auto) 0.7 % Baso % (Auto) 0.3 % Neut # (Auto) 5.72 (1.40-6.50) K/uL Lymph # (Auto) 2.48 (1.2-3.4) K/uL Dixon # (Auto) 0.47 (0.11-0.59) K/uL Eos # (Auto) 0.06 (0-0.50) K/uL Baso # (Auto) 0.03 (0-0.2) K/uL Immature Gran # (Auto) 0.02 (0.01-0.20) K/uL Sodium 139 (136-145) mmol/L Potassium 3.8 (3.5-5.1) mmol/L Chloride 106 (98-107) mmol/L Carbon Dioxide 23 (21-32) mmol/L Anion Gap 10 (3-11) BUN 17 (6-23) mg/dl Creatinine 0.90 (0.6-1.2) mg/dl Est Cr Clr Drug Dosing 103.2 ml/min Est GFR ( Amer) 102.3 ml/min Est GFR (Non-Af Amer) 88.2 ml/min BUN/Creatinine Ratio 18.9 (10-20) Glucose 84 (70-99(Fasting)) mg/dl Calcium 9.7 (8.6-10.3) mg/dl Total Bilirubin 0.3 (0.2-1.0) mg/dl AST 19 (13-39) U/L ALT 14 (7-52) U/L Alkaline Phosphatase 61 (34-104) U/L Total Protein 8.7 H (6.0-8.3) gm/dl Albumin 4.5 (3.4-5.0) gm/dl Globulin 4.2 H (2.5-4.0) gm/dl Albumin/Globulin Ratio 1.1 (0.9-2) TSH 8.824 H (0.300-4.500) uIu/ml Free T4 0.67 (0.61-1.60) ng/dl Urine Color Urine Appearance (Clear) Urine pH (4.5-7.5) Ur Specific Goodrich (1.000-1.030) Urine Protein (Negative) Urine Glucose (UA) (Negative) Urine Ketones (Negative) Urine Blood (Negative) Urine Nitrite (Negative) Urine Bilirubin (Negative) Urine Urobilinogen (Negative) Ur Leukocyte Esterase (Negative) Urine WBC (Auto) (0-5) /hpf Urine RBC (Auto) (0-4) /hpf U Hyaline Cast (Auto) (0-5) /lpf U Epithel Cells (Auto) (0-5) /lpf Urine Bacteria (Auto) (Negative) Urine Test (Negative) Salicylates (3.0-30) mg/dl Urine Opiates Screen (Neg) Ur Methadone, Qual (Neg) Acetaminophen (10-30) ug/ml Urine Barbiturates (Neg) Ur Phencyclidine (PCP) (Neg) U Amphetamin/Meth Scrn (Neg) MDMA (Ecstasy) Screen (Neg) U Benzodiazepines Scrn (Neg) Ur Cocaine Metabolite (Neg) U Marijuana (THC) Screen (Neg) Ethyl Alcohol mg/dL (<10.0) mg/dl SARS-CoV-2, RNA, NAAT (NEGATIVE) 07/19/22 07/19/22 07/19/22 Range/Units 23:20 23:20 23:20 WBC (4.8-10.8) K/ul RBC (4.20-5.40) M/uL Hgb (12.0-16.0) g/dl Hct (37.0-47.0) % MCV (80.0-100.0) fL MCH (25.0-34.0) pg MCHC (32.0-36.0) g/dL RDW Std Deviation (36.4-46.3) fL RDW Coeff of Harvey (11.5-14.5) % Plt Count (130-400) K/uL MPV (9.4-12.4) fL Immature Gran % (Auto) % Neut % (Auto) % Lymph % (Auto) % Dixon % (Auto) % Eos % (Auto) % Baso % (Auto) % Neut # (Auto) (1.40-6.50) K/uL Lymph # (Auto) (1.2-3.4) K/uL Dixon # (Auto) (0.11-0.59) K/uL Eos # (Auto) (0-0.50) K/uL Baso # (Auto) (0-0.2) K/uL Immature Gran # (Auto) (0.01-0.20) K/uL Sodium (136-145) mmol/L Potassium (3.5-5.1) mmol/L Chloride (98-107) mmol/L Carbon Dioxide (21-32) mmol/L Anion Gap (3-11) BUN (6-23) mg/dl Creatinine (0.6-1.2) mg/dl Est Cr Clr Drug Dosing ml/min Est GFR ( Amer) ml/min Est GFR (Non-Af Amer) ml/min BUN/Creatinine Ratio (10-20) Glucose (70-99(Fasting)) mg/dl Calcium (8.6-10.3) mg/dl Total Bilirubin (0.2-1.0) mg/dl AST (13-39) U/L ALT (7-52) U/L Alkaline Phosphatase (34-104) U/L Total Protein (6.0-8.3) gm/dl Albumin (3.4-5.0) gm/dl Globulin (2.5-4.0) gm/dl Albumin/Globulin Ratio (0.9-2) TSH (0.300-4.500) uIu/ml Free T4 (0.61-1.60) ng/dl Urine Color Yellow Urine Appearance Cloudy A (Clear) Urine pH 5.5 (4.5-7.5) Ur Specific Goodrich 1.024 (1.000-1.030) Urine Protein Negative (Negative) Urine Glucose (UA) Negative (Negative) Urine Ketones Negative (Negative) Urine Blood 3+ H (Negative) Urine Nitrite Negative (Negative) Urine Bilirubin Negative (Negative) Urine Urobilinogen Negative (Negative) Ur Leukocyte Esterase 1+ H (Negative) Urine WBC (Auto) 10-30 H (0-5) /hpf Urine RBC (Auto) >30 H (0-4) /hpf U Hyaline Cast (Auto) 1-5 (0-5) /lpf U Epithel Cells (Auto) >30 H (0-5) /lpf Urine Bacteria (Auto) Negative (Negative) Urine Test (Negative) Salicylates < 3.0 L (3.0-30) mg/dl Urine Opiates Screen (Neg) Ur Methadone, Qual (Neg) Acetaminophen < 3 L (10-30) ug/ml Urine Barbiturates (Neg) Ur Phencyclidine (PCP) (Neg) U Amphetamin/Meth Scrn (Neg) MDMA (Ecstasy) Screen (Neg) U Benzodiazepines Scrn (Neg) Ur Cocaine Metabolite (Neg) U Marijuana (THC) Screen (Neg) Ethyl Alcohol mg/dL < 10.0 (<10.0) mg/dl SARS-CoV-2, RNA, NAAT (NEGATIVE) 07/19/22 07/19/22 07/19/22 Range/Units 23:20 23:20 23:20 WBC (4.8-10.8) K/ul RBC (4.20-5.40) M/uL Hgb (12.0-16.0) g/dl Hct (37.0-47.0) % MCV (80.0-100.0) fL MCH (25.0-34.0) pg MCHC (32.0-36.0) g/dL RDW Std Deviation (36.4-46.3) fL RDW Coeff of Harvey (11.5-14.5) % Plt Count (130-400) K/uL MPV (9.4-12.4) fL Immature Gran % (Auto) % Neut % (Auto) % Lymph % (Auto) % Dixon % (Auto) % Eos % (Auto) % Baso % (Auto) % Neut # (Auto) (1.40-6.50) K/uL Lymph # (Auto) (1.2-3.4) K/uL Dixon # (Auto) (0.11-0.59) K/uL Eos # (Auto) (0-0.50) K/uL Baso # (Auto) (0-0.2) K/uL Immature Gran # (Auto) (0.01-0.20) K/uL Sodium (136-145) mmol/L Potassium (3.5-5.1) mmol/L Chloride (98-107) mmol/L Carbon Dioxide (21-32) mmol/L Anion Gap (3-11) BUN (6-23) mg/dl Creatinine (0.6-1.2) mg/dl Est Cr Clr Drug Dosing ml/min Est GFR ( Amer) ml/min Est GFR (Non-Af Amer) ml/min BUN/Creatinine Ratio (10-20) Glucose (70-99(Fasting)) mg/dl Calcium (8.6-10.3) mg/dl Total Bilirubin (0.2-1.0) mg/dl AST (13-39) U/L ALT (7-52) U/L Alkaline Phosphatase (34-104) U/L Total Protein (6.0-8.3) gm/dl Albumin (3.4-5.0) gm/dl Globulin (2.5-4.0) gm/dl Albumin/Globulin Ratio (0.9-2) TSH (0.300-4.500) uIu/ml Free T4 (0.61-1.60) ng/dl Urine Color Urine Appearance (Clear) Urine pH (4.5-7.5) Ur Specific Goodrich (1.000-1.030) Urine Protein (Negative) Urine Glucose (UA) (Negative) Urine Ketones (Negative) Urine Blood (Negative) Urine Nitrite (Negative) Urine Bilirubin (Negative) Urine Urobilinogen (Negative) Ur Leukocyte Esterase (Negative) Urine WBC (Auto) (0-5) /hpf Urine RBC (Auto) (0-4) /hpf U Hyaline Cast (Auto) (0-5) /lpf U Epithel Cells (Auto) (0-5) /lpf Urine Bacteria (Auto) (Negative) Urine Test Negative (Negative) Salicylates (3.0-30) mg/dl Urine Opiates Screen Neg (Neg) Ur Methadone, Qual Neg (Neg) Acetaminophen (10-30) ug/ml Urine Barbiturates Neg (Neg) Ur Phencyclidine (PCP) Neg (Neg) U Amphetamin/Meth Scrn Neg (Neg) MDMA (Ecstasy) Screen Pos H (Neg) U Benzodiazepines Scrn Neg (Neg) Ur Cocaine Metabolite Neg (Neg) U Marijuana (THC) Screen Neg (Neg) Ethyl Alcohol mg/dL (<10.0) mg/dl SARS-CoV-2, RNA, NAAT NEGATIVE (NEGATIVE) MDM Narrative Medical decision making differential diagnosis includes suicidal ideation, depression, anxiety, drug overdose Plan is to check psychiatric labs for medical clearance Consult with case management External medical records were reviewed by me Patient is at high risk for suicide Patient will be admitted for psychiatric treatment Impression & Plan Suicidal ideation, Depression Discharge Plan Visit Data Chief Complaint: Mental Health Evaluation Stated Complaint: SUCIDAL,WANTS TO KILL HERSELF ED Provider: Mirza Barillas Discharge Problem: Suicidal ideation, Depression Patient Disposition: Admitted As Inpatient
[2022-07-19 23:59] LABS: Appearance Urine Cloudy (Clear); Bacteria Urine Automated Negative (Negative); Bilirubin Urine Negative (Negative); Blood Urine 3+ (Negative); Color Urine Yellow; Epithelial Cell Urine Auto >30 /lpf (0-5); Glucose Urine UA Negative (Negative); Ketones Urine Negative (Negative); Leukocyte Esterase Urine 1+ (Negative); Nitrite Urine Negative (Negative); Pregnancy Test, Urine Negative (Negative); Protein Urine Negative (Negative); RBC Urine Automated >30 /hpf (0-4); Specific Gravity Urine 1.024 (1.000-1.030); Urobilinogen Urine Negative (Negative); pH Urine 5.5 (4.5-7.5)
[2022-07-20] LABS: Basophils # (auto) 0.03 K/uL (0-0.2); Basophils % (auto) 0.3 %; Eosinophils # (auto) 0.06 K/uL (0-0.50); Eosinophils % (auto) 0.7 %; Hematocrit (blood only) 41.8 % (37.0-47.0); Hemoglobin 13.6 g/dl (12.0-16.0); Immature Granulocytes # (auto) 0.02 K/uL (0.01-0.20); Immature Granulocytes % (auto) 0.2 %; Lymphocytes # (auto) 2.48 K/uL (1.2-3.4); Lymphocytes % (auto) 28.2 %; Mean Corpuscular Hemoglobin 26.4 pg (25.0-34.0); Mean Corpuscular Hgb Conc 32.5 g/dL (32.0-36.0); Mean Corpuscular Volume 81.2 fL (80.0-100.0); Mean Platelet Volume 9.2 fL (9.4-12.4); Monocytes # (auto) 0.47 K/uL (0.11-0.59); Monocytes % (auto) 5.4 %; Neutrophils # (auto) 5.72 K/uL (1.40-6.50); Neutrophils % (auto) 65.2 %; Platelet Count 450 K/uL (130-400); RDW Standard Deviation 44.6 fL (36.4-46.3); Red Blood Count 5.15 M/uL (4.20-5.40); White Blood Count 8.78 K/ul (4.8-10.8)
[2022-07-20 00:16] LABS: Albumin Globulin Ratio 1.1 (0.9-2); Albumin Level 4.5 gm/dl (3.4-5.0); BUN Creatinine Ratio 18.9 (10-20); Bilirubin,Total 0.3 mg/dl (0.2-1.0); Calcium 9.7 mg/dl (8.6-10.3); Creatinine Clr Calc Pharmacy 103.2 ml/min; Est GFR (African American) 102.3 ml/min; Est GFR (Non-African American) 88.2 ml/min; Globulin 4.2 gm/dl (2.5-4.0); Potassium 3.8 mmol/L (3.5-5.1); Total Protein 8.7 gm/dl (6.0-8.3)
[2022-07-20 00:30] LABS: Thyroid Stimulating Hormone 8.824 uIu/ml (0.300-4.500)
[2022-07-20 01:08] LABS: T4 Free Thyroxine 0.67 ng/dl (0.61-1.60)
[2022-07-20 01:20] LABS: Acetaminophen < 3 ug/ml (10-30); Salicylate < 3.0 mg/dl (3.0-30)
[2022-07-20 01:21] LABS: Amphetamines+Metham, Urine Neg (Neg); Barbiturates, Urine Neg (Neg); Benzodiazepine, Urine Neg (Neg); Cocaine, Urine Neg (Neg); MDMA (Ecstacy), Urine Pos (Neg); Methadone, Urine Neg (Neg); Opiate, Urine Neg (Neg); Phencyclidine, Urine Neg (Neg)
[2022-07-20] MEDS ORDERED: cloNIDine HCL 0.1 MG TAB PO ONE (01:55)
[2022-07-20] MEDS ORDERED: MAGNESIUM HYDROXIDE SUSP 30 ML UDC PO PRN (04:30)
[2022-07-20] MEDS ORDERED: ALUMINUM/MAGNESIUM SUSP 30 ML UDC PO PRN (04:30)
[2022-07-20] MEDS ORDERED: BISMUTH SUBSALICYLATE LIQD 236 ML PO PRN (04:30)
[2022-07-20] MEDS ORDERED: hydrOXYzine HCl 25 MG TAB PO PRN ×2 (04:30)
[2022-07-20] MEDS ORDERED: SODIUM CHLORIDE 0.65% NA SOLN 45 ML (OCEAN) PRN (04:30)
[2022-07-20] MEDS: buPROPion XL 300 MG TABCR PO SCH (07:52)
[2022-07-20] MEDS: lisinopril 5 MG TAB PO SCH (07:52)
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
[2022-07-20] MEDS: MIRTAZAPINE TAB 15 MG TAB PO SCH ×2 (14:10→20:26)
[2022-07-20] MEDS: ACETAMINOPHEN 325 MG TAB PO PRN ×2 (14:33→20:27)
[2022-07-21] MEDS: buPROPion XL 300 MG TABCR PO SCH (08:33)
[2022-07-21] MEDS: lisinopril 5 MG TAB PO SCH (08:33)
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
[2022-07-25 13:42] LABS: MDA negative; MDEA negative; MDMA (Ecstasy) Urine, Confirm negative
== END 2022-07-21 13:04 | disposition home or self-care (01) | DRG 885 ==
LOC: ED 22:48 → 3S 07-20 01:48

== ENCOUNTER 2023-06-29 05:39 | Inpatient (IN) ==
[2023-06-29 06:22] LABS: Appearance Urine Cloudy (Clear); Bacteria Urine Automated 1+ (Negative); Blood Urine Negative (Negative); Color Urine Dark Yellow; Epithelial Cell Urine Auto >30 /lpf (0-5); Glucose Urine UA Negative (Negative); Ketones Urine Trace (Negative); Leukocyte Esterase Urine 1+ (Negative); Nitrite Urine Negative (Negative); Protein Urine 1+ (Negative); Specific Gravity Urine 1.037 (1.000-1.030); Urobilinogen Urine Negative (Negative); pH Urine 5.5 (4.5-7.5)
--- NOTE | 2023-06-29 06:31 | Emergency Department Note ---
Impression & Plan Depression with suicidal ideation ED Provider Note NAME: BELLA RICH AGE: 28 SEX: F : 1995 ARRIVES VIA: Walk-In INFORMANT: Patient, ED PROVIDER(S): Saad Conn MD CHIEF COMPLAINT: Suicidal ideation MEDICAL DECISION MAKING: Patient presents due to concern for suicidal ideation with known prior history of attempts with intent to overdose on her medications as well as fentanyl. Blood work was obtained. Patient was deemed medically cleared seen and evaluated by psych correctional case manager and referrals were made. Patient was accepted to [facility] for inpatient treatment. Discussion w/ other healthcare providers: None Prior /Outside records reviewed: I reviewed a primary care visit from Ed Dyer from February 2023. Patient was seen for conjunctivitis at that time. Patient does have a known history of hypertension ADHD and MDD. Differential diagnosis: Mood disorder, infection, hypoglycemia, electrolyte abnormalities, dehydration, medication side effect among others were considered. Diagnostics, as interpreted by me: ECG: None Medical decision rules: Suicide risk severity score Imaging studies: None HPI: Patient presents due to concern for suicidal ideation with plan to overdose on her medications as well as fentanyl. The patient does have a prior history of attempt. Patient has had increased depressed mood. No HI or AVH. The patient was recently in [place] for a week with friends but was brought back here as the patient was having suicidal ideation. The patient currently resides locally. When asked the patient states that she does not have a plan but there was concern from crisis that the patient had expressed the plan was to harm herself. Patient states that sometimes she has interrupted sleep and that her appetite is okay. Patient states that she has not taken any medications for depression or anxiety in over a year. PAST MEDICAL HISTORY: See Below PAST SURGICAL HISTORY: See Below SOCIAL HISTORY: See Below HOME MEDICATIONS: See Below ALLERGIES: See Below VITALS: See Below PHYSICAL EXAMINATION: GENERAL: NAD, non-toxic. EYE EXAM: Normal conjunctiva. PERRL, no anisocoria and EOM's grossly intact w/o pain. OROPHARYNX: Moist mucus membranes, grossly normal dentition. NECK: Trachea midline, no stridor. Supple, no nuchal rigidity, no adenopathy, non-tender. No signs of meningismus. FROM of the neck with good chin to chest and neck extension. LUNGS: Clear to auscultation. Normal chest wall mechanics. HEART: NSR, no MRG. ABDOMEN: Abdomen soft, non-tender, no masses, no rebound or guarding. BACK: No CVA TTP. SKIN: No rashes and no bruising. UPPER EXTREMITIES: Upper extremities are grossly normal. LOWER EXTREMITIES: Grossly normal, no edema. NEURO EXAM: A&O x3, cranial nerves II-XII grossly intact, normal speech, moves all 4 extremities. Psych: Positive SI, denies HI or AVH. 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: No Beliefs That Will Affect Care: None marital status: / Current Living Situation: Other Current Living Situation Comment: lives with others current occupational status: unemployed How many Children do You have: 1 Feels Safe at Home: Yes Childhood Exposure to Second-Hand Smoke: No caffeine: Yes (occasional soda) Dental Care, Regularly: No Physical Activity Frequency: Other Physical Activity Frequency Comment: walking Seatbelt Use: always Sunscreen Use: No Gender Identity: Female Assistive Devices: None Allergies Allergies Allergy/AdvReac Type Severity Reaction Status Date / Time No Known Drug Allergies Allergy Verified 03/20/23 16:12 Home Meds Previous Rx's Medication Instructions Recorded lisinopril 20 mg tablet 20 mg PO DAILY 30 days #30 tabs 06/18/23 Results & Data (ED) Vital Signs Vital Signs - 24 hr 06/29/23 05:40 06/29/23 08:22 Temperature 36.5 C Temperature Source Oral Pulse Rate 121 H Pulse Rate [Left Finger] 82 Pulse Rhythm [Left Finger] Regular Pulse Strength [Left Finger] Normal Respiratory Rate 18 16 Respiratory Effort / Characteristics Non-Labored Spontaneous Non-Labored Spontaneous Respiratory Depth Normal Normal Respiratory Pattern Regular Blood Pressure 154/117 H Blood Pressure [Left Arm] 142/81 H Blood Pressure Mean 129 Blood Pressure Mean [Left Arm] 101 Blood Pressure Position [Left Arm] Lying Pulse Oximetry 98 99 Oxygen Delivery Method Room Air Room Air Sepsis Recent Fever Within 48 Hours No Sepsis New/Unexplained Change in Mental Status No Sepsis Action Taken by Nursing No Action Required Home Medications Current Medication List: was personally reviewed by me Laboratory Data Attestation: I reviewed the patient's lab results. 06/29/23 06:16 06/29/23 06:16 Lab Results 06/29/23 06/29/23 06/29/23 Range/Units 05:54 06:16 10:15 WBC 11.17 H (4.8-10.8) K/ul RBC 4.73 (4.20-5.40) M/uL Hgb 13.2 (12.0-16.0) g/dl Hct 39.1 (37.0-47.0) % MCV 82.7 (80.0-100.0) fL MCH 27.9 (25.0-34.0) pg MCHC 33.8 (32.0-36.0) g/dL RDW Std Deviation 38.6 (36.4-46.3) fL RDW Coeff of Harvey 12.9 (11.5-14.5) % Plt Count 396 (130-400) K/uL MPV 9.3 L (9.4-12.4) fL Immature Gran % (Auto) 0.3 % Neut % (Auto) 74.8 % Lymph % (Auto) 18.5 % [place] % (Auto) 5.9 % Eos % (Auto) 0.3 % Baso % (Auto) 0.2 % Neut # (Auto) 8.36 H (1.40-6.50) K/uL Lymph # (Auto) 2.07 (1.20-3.40) K/uL [place] # (Auto) 0.66 H (0.11-0.59) K/uL Eos # (Auto) 0.03 (0.00-0.50) K/uL Baso # (Auto) 0.02 (0.00-0.20) K/uL Immature Gran # (Auto) 0.03 (0.01-0.20) K/uL Sodium 140 (136-145) mmol/L Potassium 3.5 (3.5-5.1) mmol/L Chloride 107 (98-107) mmol/L Carbon Dioxide 23 (21-32) mmol/L Anion Gap 10 (3-11) BUN 14 (6-23) mg/dl Creatinine 0.77 (0.6-1.2) mg/dl Est Cr Clr Drug Dosing 116.4 ml/min Est GFR ( Amer) 122.6 ml/min Est GFR (Non-Af Amer) 105.8 ml/min BUN/Creatinine Ratio 18.2 (10-20) Glucose 95 (70-99(Fasting)) mg/dl Calcium 9.7 (8.6-10.3) mg/dl Total Bilirubin 0.6 (0.2-1.0) mg/dl AST 14 (13-39) U/L ALT 11 (7-52) U/L Alkaline Phosphatase 58 (34-104) U/L Total Protein 8.3 (6.0-8.3) gm/dl Albumin 5.0 (3.4-5.0) gm/dl Globulin 3.3 (2.5-4.0) gm/dl Albumin/Globulin Ratio 1.5 (0.9-2) TSH 5.999 H (0.300-4.500) uIu/ml Free T4 0.96 (0.61-1.60) ng/dl Urine Color Dark Yellow Urine Appearance Cloudy A (Clear) Urine pH 5.5 (4.5-7.5) Ur Specific [place] 1.037 H (1.000-1.030) Urine Protein 1+ H (Negative) Urine Glucose (UA) Negative (Negative) Urine Ketones Trace H (Negative) Urine Blood Negative (Negative) Urine Nitrite Negative (Negative) Urine Bilirubin 1+ H (Negative) Urine Urobilinogen Negative (Negative) Ur Leukocyte Esterase 1+ H (Negative) Urine WBC (Auto) 10-30 H (0-5) /hpf Urine RBC (Auto) 0-4 (0-4) /hpf U Hyaline Cast (Auto) 10-30 H (0-5) /lpf U Epithel Cells (Auto) >30 H (0-5) /lpf Urine Bacteria (Auto) 1+ H (Negative) Urine Mucus Present A (None Prsent) Urine Test Negative (Negative) Salicylates < 3.0 L (3.0-30) mg/dl Urine Opiates Screen Neg (Neg) Ur Methadone, Qual Neg (Neg) Acetaminophen < 3 L (10-30) ug/ml Urine Barbiturates Neg (Neg) Ur Phencyclidine (PCP) Neg (Neg) U Amphetamin/Meth Scrn Neg (Neg) MDMA (Ecstasy) Screen Neg (Neg) U Benzodiazepines Scrn Neg (Neg) Ur Cocaine Metabolite Neg (Neg) U Marijuana (THC) Screen Neg (Neg) Ethyl Alcohol mg/dL < 10.0 (<10.0) mg/dl SARS-CoV-2, RNA, NAAT NEGATIVE (NEGATIVE) Discharge Plan Visit Data Chief Complaint: Mental Health Evaluation Stated Complaint: MENTAL HEALTH ED Provider: Saad Conn Discharge Problem: Depression with suicidal ideation Discharge Instructions Interventions: ED Discharge Assessment Last Done: 06/29/23 13:38
[2023-06-29 06:35] LABS: Bilirubin Urine 1+ (Negative)
[2023-06-29 06:47] LABS: Basophils # (auto) 0.02 K/uL (0.00-0.20); Basophils % (auto) 0.2 %; Eosinophils # (auto) 0.03 K/uL (0.00-0.50); Eosinophils % (auto) 0.3 %; Hematocrit (blood only) 39.1 % (37.0-47.0); Hemoglobin 13.2 g/dl (12.0-16.0); Immature Granulocytes # (auto) 0.03 K/uL (0.01-0.20); Immature Granulocytes % (auto) 0.3 %; Lymphocytes # (auto) 2.07 K/uL (1.20-3.40); Lymphocytes % (auto) 18.5 %; Mean Corpuscular Hemoglobin 27.9 pg (25.0-34.0); Mean Corpuscular Hgb Conc 33.8 g/dL (32.0-36.0); Mean Corpuscular Volume 82.7 fL (80.0-100.0); Mean Platelet Volume 9.3 fL (9.4-12.4); Monocytes # (auto) 0.66 K/uL (0.11-0.59); Monocytes % (auto) 5.9 %; Neutrophils # (auto) 8.36 K/uL (1.40-6.50); Neutrophils % (auto) 74.8 %; Platelet Count 396 K/uL (130-400); RDW Coefficient of Variation 12.9 % (11.5-14.5); RDW Standard Deviation 38.6 fL (36.4-46.3); Red Blood Count 4.73 M/uL (4.20-5.40); White Blood Count 11.17 K/ul (4.8-10.8)
[2023-06-29 06:53] LABS: Acetaminophen < 3 ug/ml (10-30); Salicylate < 3.0 mg/dl (3.0-30)
[2023-06-29 06:54] LABS: Mucus Urine Present (None Prsent)
[2023-06-29 06:55] LABS: RBC Urine Automated 0-4 /hpf (0-4)
[2023-06-29 06:58] LABS: Albumin Globulin Ratio 1.5 (0.9-2); BUN Creatinine Ratio 18.2 (10-20); Bilirubin,Total 0.6 mg/dl (0.2-1.0); Calcium 9.7 mg/dl (8.6-10.3); Creatinine Clr Calc Pharmacy 116.4 ml/min; Est GFR (African American) 122.6 ml/min; Est GFR (Non-African American) 105.8 ml/min; Globulin 3.3 gm/dl (2.5-4.0); Potassium 3.5 mmol/L (3.5-5.1); Total Protein 8.3 gm/dl (6.0-8.3)
[2023-06-29 07:11] LABS: Thyroid Stimulating Hormone 5.999 uIu/ml (0.300-4.500)
[2023-06-29 07:42] LABS: Amphetamines+Metham, Urine Neg (Neg); Barbiturates, Urine Neg (Neg); Benzodiazepine, Urine Neg (Neg); Cocaine, Urine Neg (Neg); MDMA (Ecstacy), Urine Neg (Neg); Marijuana, Urine Neg (Neg); Methadone, Urine Neg (Neg); Opiate, Urine Neg (Neg); Phencyclidine, Urine Neg (Neg)
[2023-06-29 07:47] LABS: T4 Free Thyroxine 0.96 ng/dl (0.61-1.60)
[2023-06-29 13:03] LABS: Pregnancy Test, Urine Negative (Negative)
[2023-06-29] MEDS ORDERED: ACETAMINOPHEN 325 MG TAB PO PRN (13:33)
[2023-06-29] MEDS ORDERED: SODIUM CHLORIDE 0.65% NA SOLN 45 ML (OCEAN) PRN (13:33)
[2023-06-29] MEDS ORDERED: ALUMINUM/MAGNESIUM SUSP 30 ML UDC PO PRN (13:33)
[2023-06-29] MEDS ORDERED: hydrOXYzine HCl 25 MG TAB PO PRN ×2 (13:33)
[2023-06-29] MEDS ORDERED: MAGNESIUM HYDROXIDE SUSP 30 ML UDC PO PRN (13:33)
[2023-06-29] MEDS ORDERED: BISMUTH SUBSALICYLATE LIQD 236 ML PO PRN (13:33)
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
[2023-06-30] MEDS: lisinopril 20 MG TAB PO SCH (09:05)
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
[2023-06-30] MEDS: buPROPion SR 150 MG TABCR PO SCH (21:50)
--- NOTE | 2023-07-01 10:19 | Psychiatric Progress Note ---
Date of Service July 01, 2023 Impression / Recommendations Impression 28 year old female with past psychiatric history of depression with one serious suicide attempt. She presented after having suicidal thoughts to overdose on fentanyl. Today the patient states that they were only fleeting thoughts and she didn't intend to go through with it. She says she couldn't even accomplish her plan because she had no access to fentanyl for overdose. (1) Depression with suicidal ideation: She denies any further suicidal thoughts. She now states they wer just fleeting and there was no intent or plan. (2) Major depressive disorder, recurrent severe without psychotic features: Wellbutrin restarted. She had good response to this before. She is requesting that it be dosed once daily in the morning. Plan Admit to the inpatient psych unit. Re start Wellbutrin for symptoms of depression. Patient is requesting it be dosed only once daily in the morning, Participate in the milieu. Inventory Assets Strengths: willing to accept help, future oriented Needs: coping skills that don't include self harm Suicide Risk Level Suicide Risk Level: Low (q15 min observation checks) Suicide Risk Level Comments: Patient has been denying suicidal thoughts since arriving in the unit. Risk Factors Assessment : Yes Do You Have Access To A Gun?: No (will confirm upon d/c) Mental Health Diagnoses: Yes Previous Attempt: Yes Previous Psychiatric Hospitalization: Yes Protective Factors Assessment Responsible for Young Children: Yes Employed: No Interval History Chief Complaint "I'm doing better". Review of Systems Sleep Information Total Hours of Sleep: 5.5 Meal Information Percent Meal Consumed - Breakfast: 100 Percent Meal Consumed - Lunch: 75 Percent Meal Consumed - Dinner: 50 Nutrition Comment: Pt refused breakfast and didn't want it to be saved also. Subjective Subjective Patient was seen & assessed and interval progress reviewed with nursing and social work. We have restarted her on her Wellbutrin. She stated that she would prefer to only take a medication one time per day, in the morning. I told her we will make sure to make any adjustments so she has a one time daily dose. She continues to deny suicidal and homicidal ideation. We discussed her plans for the future and the fact that she has work and school coming up on Sunday and Sunday. She has contacted them and they are understanding, but we will attempt to minimize the disruptions to her goals by getting her set up to continue treatment as an outpatient as soon as we can. Physical Exam Psychiatric A+Ox3, euthymic affect Orientation: alert, oriented x 3 and cooperative Apperance: appropriately dressed, appropriately groomed and appeared stated age Eye Contact: good eye contact Motor Behavior: steady gait and station and no abnormal motor movements Speech: normal rate/rhythm/volume of speech Affect: euthymic affect Mood: no depressed mood and no anxious mood Thought Process: goal directed thought process, linear/logical thought process and clear/coherent thought process Thought Content: reality based without delusions; no cognitive distortions and no ideas of reference Suicidal Thoughts: denies suicidal thoughts, denies suicidal plan and denies suicidal intent Homicidal Thoughts: denies homicidal thoughts, denies homicidal plan and denies homicidal intent Hallucinations: no auditory hallucinations, no visual hallucinations, no tactile hallucinations and no gustatory hallucinations Cognition: recent memory grossly intact, remote memory grossly intact, attention grossly intact and language grossly intact Estimated Intelligence: average estimated intelligence Insight: + fair insight Judgment: + fair judgement Vital Signs (Past 24 Hours) Last Vital Signs Temp 37 C 07/01/23 06:34 Pulse 80 07/01/23 06:34 Resp 16 07/01/23 06:34 BP 105/73 07/01/23 06:34 Pulse Ox 99 06/29/23 08:22 O2 Del Method Room Air 06/29/23 13:38 Results & Data ([facility]) Current Inpatient Medications Current Inpatient Medications: Current Inpatient Medications Acetaminophen (Acetaminophen 325 Mg Tab) 650 mg PO Q4H PRN PRN Reason: Headache or Minor Fever Stop: 07/29/23 13:32 Al Hydrox/Mg Hydrox/Simethicone (Aluminum/Magnesium Susp 30 Ml Udc) 30 ml PO Q4H PRN PRN Reason: GI Upset Stop: 07/29/23 13:32 Bismuth Subsalicylate (Bismuth Subsalicylate Liqd 236 Ml) 15 ml PO PRN PRN PRN Reason: Loose Stool Stop: 07/29/23 13:32 Bupropion HCl (Bupropion Sr 150 Mg Tabcr) 150 mg PO BID CATHRYN Stop: 07/30/23 20:59 Last Admin: 07/01/23 08:55 Dose: 150 mg Hydroxyzine HCl (Hydroxyzine Hcl 25 Mg Tab) 50 mg PO HSZ PRN PRN Reason: Insomnia Stop: 07/29/23 13:32 Hydroxyzine HCl (Hydroxyzine Hcl 25 Mg Tab) 25 mg PO Q4H PRN PRN Reason: Anxiety Stop: 07/29/23 13:32 Lisinopril (Lisinopril 20 Mg Tab) 20 mg PO DAILY CATHRYN Stop: 07/30/23 08:59 Last Admin: 07/01/23 08:55 Dose: 20 mg Magnesium Hydroxide (Magnesium Hydroxide Susp 30 Ml Udc) 30 ml PO DAILY PRN PRN Reason: Constipation Stop: 07/29/23 13:32 Sodium Chloride (Sodium Chloride 0.65% Na Soln 45 Ml ([place])) 1 - 2 sprays NA PRN PRN PRN Reason: Nasal Dryness/Congestion Stop: 07/29/23 13:32 Mental Health & Subst Abuse Tx Therapist Name of Therapist: None Microbiology Lab Manager Name of Microbiology Lab Manager: None
[2023-07-02] MEDS: buPROPion SR 150 MG TABCR PO SCH (08:30)
--- NOTE | 2023-07-02 12:05 | Psychiatric Progress Note ---
Date of Service July 02, 2023 Impression / Recommendations Impression 28 year old female with past psychiatric history of depression with one serious suicide attempt. She presented after having suicidal thoughts to overdose on fentanyl. Today the patient states that they were only fleeting thoughts and she didn't intend to go through with it. She says she couldn't even accomplish her plan because she had no access to fentanyl for overdose. (1) Depression with suicidal ideation: She denies any further suicidal thoughts. She now states they were just fleeting and there was no intent or plan. (2) Major depressive disorder, recurrent severe without psychotic features: Wellbutrin restarted. She had good response to this before. She is requesting that it be dosed once daily in the morning. Plan 07/02/2023: Patient continues to do well on her once daily Wellbutrin. She is attending groups. She is at her baseline and we will likely discharge her home tomorrow. Admit to the inpatient psych unit. Re start Wellbutrin for symptoms of depression. Patient is requesting it be dosed only once daily in the morning, Participate in the milieu. Inventory Assets Strengths: willing to accept help, future oriented Needs: coping skills that don't include self harm Suicide Risk Level Suicide Risk Level: Low (q15 min observation checks) Suicide Risk Level Comments: Patient has been denying suicidal thoughts since arriving in the unit. Risk Factors Assessment : Yes Do You Have Access To A Gun?: No (will confirm upon d/c) Mental Health Diagnoses: Yes Previous Attempt: Yes Previous Psychiatric Hospitalization: Yes Protective Factors Assessment Responsible for Young Children: Yes Employed: No Interval History Chief Complaint "I'm good". Review of Systems Sleep Information Total Hours of Sleep: 7.25 Meal Information Percent Meal Consumed - Breakfast: 100 Percent Meal Consumed - Lunch: 100 Percent Meal Consumed - Dinner: 75 Nutrition Comment: Pt refused breakfast and didn't want it to be saved also. Subjective Subjective Patient was seen & assessed and interval progress reviewed with the treatment team, nursing, and social work. She says she is doing well and looks forward to going home. She continues to deny suicidal ideation. She shows no signs of depression, wiliam or psychosis. Physical Exam Psychiatric A+Ox3, euthymic affect Orientation: alert, oriented x 3 and cooperative Apperance: appropriately dressed, appropriately groomed and appeared stated age Eye Contact: good eye contact Motor Behavior: steady gait and station and no abnormal motor movements Speech: normal rate/rhythm/volume of speech Affect: euthymic affect Mood: no depressed mood and no anxious mood Thought Process: goal directed thought process, linear/logical thought process and clear/coherent thought process Thought Content: reality based without delusions; no cognitive distortions and no ideas of reference Suicidal Thoughts: denies suicidal thoughts, denies suicidal plan and denies suicidal intent Homicidal Thoughts: denies homicidal thoughts, denies homicidal plan and denies homicidal intent Hallucinations: no auditory hallucinations, no visual hallucinations, no tactile hallucinations and no gustatory hallucinations Cognition: recent memory grossly intact, remote memory grossly intact, attention grossly intact and language grossly intact Estimated Intelligence: average estimated intelligence Insight: + fair insight Judgment: + fair judgement Vital Signs (Past 24 Hours) Last Vital Signs Temp 36.7 C 07/02/23 06:34 Pulse 81 07/02/23 06:35 Resp 16 07/02/23 06:34 BP 101/71 07/02/23 06:35 Pulse Ox 99 06/29/23 08:22 O2 Del Method Room Air 06/29/23 13:38 Results & Data ([facility]) Current Inpatient Medications Current Inpatient Medications: Current Inpatient Medications Acetaminophen (Acetaminophen 325 Mg Tab) 650 mg PO Q4H PRN PRN Reason: Headache or Minor Fever Stop: 07/29/23 13:32 Al Hydrox/Mg Hydrox/Simethicone (Aluminum/Magnesium Susp 30 Ml Udc) 30 ml PO Q4H PRN PRN Reason: GI Upset Stop: 07/29/23 13:32 Bismuth Subsalicylate (Bismuth Subsalicylate Liqd 236 Ml) 15 ml PO PRN PRN PRN Reason: Loose Stool Stop: 07/29/23 13:32 Bupropion HCl (Bupropion Sr 150 Mg Tabcr) 150 mg PO DAILY CATHRYN Stop: 08/01/23 08:59 Last Admin: 07/02/23 08:30 Dose: 150 mg Hydroxyzine HCl (Hydroxyzine Hcl 25 Mg Tab) 50 mg PO HSZ PRN PRN Reason: Insomnia Stop: 07/29/23 13:32 Hydroxyzine HCl (Hydroxyzine Hcl 25 Mg Tab) 25 mg PO Q4H PRN PRN Reason: Anxiety Stop: 07/29/23 13:32 Lisinopril (Lisinopril 20 Mg Tab) 20 mg PO DAILY CATHRYN Stop: 07/30/23 08:59 Last Admin: 07/02/23 08:30 Dose: 20 mg Magnesium Hydroxide (Magnesium Hydroxide Susp 30 Ml Udc) 30 ml PO DAILY PRN PRN Reason: Constipation Stop: 07/29/23 13:32 Sodium Chloride (Sodium Chloride 0.65% Na Soln 45 Ml ([place])) 1 - 2 sprays NA PRN PRN PRN Reason: Nasal Dryness/Congestion Stop: 07/29/23 13:32 Mental Health & Subst Abuse Tx Psychiatrist Name of Psychiatrist: Javed Escobar Psychiatrist's Date Of Appointment With Psychiatric Provider: 07/13/23 Time of Appointment with Psychiatrist: 11:00am Therapist Name of Therapist: None Pipeline Engineer Name of Pipeline Engineer: None
--- NOTE | 2023-07-03 12:33 | Discharge Summary ---
Date of Service July 03, 2023 History of Present Illness Patient is a 28 year old female with past psychiatric history of depression and suicide attempts who presented after telling a friend she had suicidal thoughts with a plan to overdose on fentanyl. She now says that it was only thoughts and she couldn't have done it anyway because she didn't have access to fentanyl. She says that she feels that she isn't getting anywhere in life and that is why she was depressed. 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 At the time of the interview, she denied suicidal or homicidal ideation and showed no signs of wiliam or psychosis. Physical Exam Psychiatric A+Ox3, euthymic affect Orientation: alert, oriented x 3 and cooperative Apperance: appropriately dressed, appropriately groomed and appeared stated age Eye Contact: good eye contact Motor Behavior: steady gait and station and no abnormal motor movements Speech: normal rate/rhythm/volume of speech Affect: euthymic affect Mood: no depressed mood and no anxious mood Thought Process: goal directed thought process, linear/logical thought process and clear/coherent thought process Thought Content: reality based without delusions; no cognitive distortions and no ideas of reference Suicidal Thoughts: denies suicidal thoughts, denies suicidal plan and denies suicidal intent Homicidal Thoughts: denies homicidal thoughts, denies homicidal plan and denies homicidal intent Hallucinations: no auditory hallucinations, no visual hallucinations, no tactile hallucinations and no gustatory hallucinations Cognition: recent memory grossly intact, remote memory grossly intact, attention grossly intact and language grossly intact Estimated Intelligence: average estimated intelligence Insight: good insight Judgment: + fair judgement Vital Signs (Past 24 Hours) Last Vital Signs Temp 36.5 C 07/03/23 06:42 Pulse 73 07/03/23 06:43 Resp 16 07/03/23 06:42 BP 110/77 07/03/23 06:43 Pulse Ox 99 06/29/23 08:22 O2 Del Method Room Air 06/29/23 13:38 Principal Diagnosis Major depressive disorder, recurrent, moderate Psychiatric Data See daily stay summary. In short, safety was maintained and the patient was cooperative with care. Medication changes included restarting her bupriopion and they tolerated this well. A safety plan was completed prior to discharge. Day of Discharge Assessment Today the patient voices readiness for discharge. They note improvement in mood and deny thoughts to harm self or others. Thoughts remain organized and they are improved from admission. There is no evidence of psychosis. They agree to take mediations as prescribed and keep follow-up appointments. They are stable for discharge to outpatient level of care. Transition of Care Transition Of Care Record: was reviewed with the patient Advance Directives Advance Directives Information Provided: Yes Advance Directives: No Mental Health Advance Directive: No Advance Directives on File: No Living Will: No Power of Accelerator Operator: No Advance Directives Reason:: Declines as Mental Health Visit. Suicide Risk Level Suicide Risk Level Comments: Patient has been denying suicidal thoughts since arriving in the unit. At the time of discharge she denied suicidal or homicidal ideation and showed no signs of depression, wiliam or psychosis. Risk Factors Assessment : Yes Do You Have Access To A Gun?: No (will confirm upon d/c) Mental Health Diagnoses: Yes Previous Attempt: Yes Previous Psychiatric Hospitalization: Yes Protective Factors Assessment Responsible for Young Children: Yes Employed: No Antipsychotic Medications no antipsychotic medications prescribed Total Time Total Time Spent: Greater Than 30 Minutes Discharge Data Lab Results 06/29/23 06/29/23 06/29/23 05:54 06:16 10:15 WBC 11.17 H RBC 4.73 Hgb 13.2 Hct 39.1 MCV 82.7 MCH 27.9 MCHC 33.8 RDW Std Deviation 38.6 RDW Coeff of [place] 12.9 Plt Count 396 MPV 9.3 L Immature Gran % (Auto) 0.3 Neut % (Auto) 74.8 Lymph % (Auto) 18.5 [place] % (Auto) 5.9 Eos % (Auto) 0.3 Baso % (Auto) 0.2 Neut # (Auto) 8.36 H Lymph # (Auto) 2.07 [place] # (Auto) 0.66 H Eos # (Auto) 0.03 Baso # (Auto) 0.02 Immature Gran # (Auto) 0.03 Sodium 140 Potassium 3.5 Chloride 107 Carbon Dioxide 23 Anion Gap 10 BUN 14 Creatinine 0.77 Est Cr Clr Drug Dosing 116.4 Est GFR ( Amer) 122.6 Est GFR (Non-Af Amer) 105.8 BUN/Creatinine Ratio 18.2 Glucose 95 Calcium 9.7 Total Bilirubin 0.6 AST 14 ALT 11 Alkaline Phosphatase 58 Total Protein 8.3 Albumin 5.0 Globulin 3.3 Albumin/Globulin Ratio 1.5 TSH 5.999 H Free T4 0.96 Urine Color Dark Yellow Urine Appearance Cloudy A Urine pH 5.5 Ur Specific [place] 1.037 H Urine Protein 1+ H Urine Glucose (UA) Negative Urine Ketones Trace H Urine Blood Negative Urine Nitrite Negative Urine Bilirubin 1+ H Urine Urobilinogen Negative Ur Leukocyte Esterase 1+ H Urine WBC (Auto) 10-30 H Urine RBC (Auto) 0-4 U Hyaline Cast (Auto) 10-30 H U Epithel Cells (Auto) >30 H Urine Bacteria (Auto) 1+ H Urine Mucus Present A Urine Test Negative Salicylates < 3.0 L Urine Opiates Screen Neg Ur Methadone, Qual Neg Acetaminophen < 3 L Urine Barbiturates Neg Ur Phencyclidine (PCP) Neg U Amphetamin/Meth Scrn Neg MDMA (Ecstasy) Screen Neg U Benzodiazepines Scrn Neg Ur Cocaine Metabolite Neg U Marijuana (THC) Screen Neg Ethyl Alcohol mg/dL < 10.0 SARS-CoV-2, RNA, NAAT NEGATIVE Hospital Course (1) Depression with suicidal ideation: She denies any further suicidal thoughts. She now states they were just fleeting and there was no intent or plan. (2) Major depressive disorder, recurrent severe without psychotic features: Wellbutrin restarted. She had good response to this before. She is requesting that it be dosed once daily in the morning. Plan 07/03/23 Patient is ready for discharge and understands her discharge plan. She is motivated to follow up as an outpatient and continue working and going to school. 07/02/2023: Patient continues to do well on her once daily Wellbutrin. She is attending groups. She is at her baseline and we will likely discharge her home tomorrow. Admit to the inpatient psych unit. Re start Wellbutrin for symptoms of depression. Patient is requesting it be dosed only once daily in the morning, Participate in the milieu. Mental Health & Subst Abuse Tx Psychiatrist Name of Psychiatrist: Javed Escobar Psychiatrist's Date Of Appointment With Psychiatric Provider: 07/13/23 Time of Appointment with Psychiatrist: 11:00am Psychiatric Appointment Comment: [address] [facility] [id number] Therapist Name of Therapist: None Gettering Filament Machine Operator Name of Gettering Filament Machine Operator: [employer] Phone Number for Gettering Filament Machine Operator: Case Management Appointment Comment: They will contact you to complete intake. Post Discharge Appointments Primary Care Physician Name Of Family Doctor/PCP: SANDRA Baires Primary Care Time of Appointment with PCP: Please follow up if you are in need of primary care. Provider Appointment Comment: [address], [address], [place] [address] Discharge Plan Discharge Items Patient Disposition: Home - Self-Care Reason For Visit: DEPPRESSIVE DISORDER Discharge Diagnosis: Major Depressive Disorder Condition on Discharge: Good Health Concerns: Continued follow up with therapy and continue taking medication Activity: Resume your previous activity Non-emergency contact: Primary Care Provider Call non-emergency contact if: you have any medication questions and your symptoms worsen Follow-up/Referrals: Erick Baires, [Primary Care Provider] - Diet: Regular Addtl Attending Provider Instructions: SPECIAL CARE INSTRUCTIONS: 1. Follow through with your scheduled aftercare appointments. If unable to keep an appointment, please call to reschedule. 2. Take your medication only as prescribed. Medication should not be changed or stopped without the approval of your doctor. In the event of worsening symptoms or concerns about side effects, contact your doctor immediately. 3. Utilize new healthy coping skills, anger management skills, and stress management skills learned during your hospitalization. Journal feelings and process them with a support person. Identify stressors or situations that may result in relapse, deterioration or inappropriate behaviors and develop a plan to deal with those issues. 4. If your coping skills are ineffective and you are in crisis, contact your outpatient providers for direction. If unable to reach your providers, please call the [facility] CRISIS LINE AT , go to the [facility] walk-in center at [address], [address], [place], or go to the closest Emergency Room. 5. Avoid alcohol and un-prescribed drugs. 6. You have been provided with the Mental Health Advance Directives Pamphlet for your review. 7. Your condition is stable for discharge to outpatient level of care, but recovery is an ongoing process. Ifthoughts to harm yourself or others return, follow the safety plan developed during your stay. Planning for a safe return home includes securing weapons. Our treatment team recommends weaponsbe removed from the home until your outpatient provider reassesses your progress. In rare cases where the items themselvescannot be removed, guns and ammunitionshould be secured separatelyand keys stored by a reliable personoutside of the home. If you were admitted on an involuntary commitment, the police or other legal authorities may be involved in this process. AFTERCARE APPOINTMENTS: * Please call your insurance company prior to your scheduled appointment to confirm your aftercare providers are covered. Take your insurance information to your appointments. WHO TO CALL AND WHEN: Medical Emergencies: For questions or emergencies related to your hospital stay, please contact the Inpatient Behavioral Health Unit at [phone]. A tube cutter operator is on-call 13/11 for the Behavioral Health Unit for emergencies At any time you feel your situation is an emergency, you may also call 911 immediately. Pending Studies at Discharge: No Stand-Alone Forms: [facility], Smoking Cessation Medications and DC Order Prescriptions: New bupropion HCl 150 mg Tablet Sustained-Release 12 Hr 150 mg PO DAILY Qty: 30 0RF lisinopril 20 mg Tablet 20 mg PO DAILY Qty: 30 0RF Discontinued lisinopril 20 mg tablet 20 mg PO DAILY 30 Days Qty: 30 2RF Discharge Orders: Discharge Order (Routine); Ordered 07/03/23 Ordered By: Senait Lovelace Admission Data Admit Date/Time: 06/29/23 13:34 Attending Provider: Senait Lovelace Admit Provider: Senait Lovelace Primary Care Provider: Erick Baires C[place] [address] D/C day mgmt > 30 min Patient Type Established History Expanded Problem Focused Medical Decision Making Low Complexity Diagnoses Depression with suicidal ideation F32.A; R45.851 Major depressive disorder, recurrent severe without psychotic features F33.2 Time Spent (min) 45
== END 2023-07-03 15:06 | disposition home or self-care (01) | DRG 885 ==
LOC: ED 05:39 → 3S 13:34